=== PATIENT | female | born 1940 | race Caucasian/White ===

== ENCOUNTER 2020-04-05 12:31 | Outpatient (CLI) | payer MEDICARE, SELFPAY ==
--- NOTE | 2020-04-05 12:50 | ECHO_ITS ---
Patient Info Name: Sylvia Randall Age: 80 years : 1940 Gender: Female Ht: 64 in Wt: 190 lbs BSA: 2.01 m2 HR: 72 bpm BP: 134 / 89 mmHg Technical Quality: Good Exam Date: 04/05/2020 1:16 PM Exam Location: [facility] Patient Status: Outpatient Admit Date: 04/05/2020 Staff Ordering Physician: Ahsan Arana DO [employer]: [place] RDCS, RT Attending Provider: Ahsan Arana DO Referring Physician: Sumit TONG; Exam Type: CA echo doppler color flow Study Info Indications R60.0 - Localized edema Complete two-dimensional, color flow and Doppler transthoracic echocardiogram is performed. Strain analysis performed. Summary 1. Complete two-dimensional, color flow and Doppler transthoracic echocardiogram is performed. 2. Left ventricular chamber dimension is normal. 3. Left ventricular systolic function is normal, estimated at 60-65%. 4. There is mildly increased left ventricular wall thickness. 5. The left ventricular diastolic function is grade I diastolic dysfunction. 6. E/e' 11 is mildly elevated. 7. Global longitudinal strain is abnormal at -15.2%. 8. There is mild to moderate aortic valve regurgitation. 9. There is mild to moderate mitral valve regurgitation. 10. No pulmonary hypertension, estimated pulmonary arterial systolic pressure is 36 mmHg. 11. There is trace pulmonic regurgitation. Left Ventricle E/e' 11 is mildly elevated. Global longitudinal strain is abnormal at -15.2%. Left ventricular chamber dimension is normal. Left ventricular systolic function is normal, estimated at 60-65%. There is mildly increased left ventricular wall thickness. The left ventricular diastolic function is grade I diastolic dysfunction. Right Ventricle Right ventricular chamber dimension is normal. Right ventricular systolic function is normal. Left Atria Left atrial chamber dimension is normal. Right Atria Right atrial chamber dimension is normal. Aortic Valve The aortic valve is trileaflet. There is no aortic valve stenosis. There is mild to moderate aortic valve regurgitation. Pulmonic Valve There is trace pulmonic regurgitation. Mitral Valve There is no mitral valve stenosis. There is mild to moderate mitral valve regurgitation. Tricuspid Valve There is no tricuspid valve regurgitation. No pulmonary hypertension, estimated pulmonary arterial systolic pressure is 36 mmHg. Pericardium/Pleural There is no pericardial effusion. Inferior Vena Cava Normal inferior vena cava with >50% collapse upon inspiration consistent with normal right atrial pressure, 5 mmHg. Aorta The aortic root size at the sinus of Valsalva is normal. Left Ventricular Outflow Tract Name Value Normal LVOT 2D LVOT Diameter 1.9 cm LVOT Doppler LVOT Peak Gradient 3 mmHg LVOT Mean Gradient 2 mmHg LVOT VTI 20 cm LVOT VTI/AV VTI Ratio 0.7 LVOT Stroke Volume 56 ml LVOT CO 3.7 l/min
== END 2020-04-05 12:32 | disposition home or self-care (01) ==
LOC: ANHCARD 12:32
PROVIDERS: Family Provider Internal Medicine; PCP Internal Medicine; Visit Provider Internal Medicine
DX: J43.9 Emphysema, unspecified (principal); R60.0 Localized edema; R06.09 Other forms of dyspnea
CPT/HCPCS: 93306

== ENCOUNTER 2020-07-24 12:37 | Outpatient (CLI) | payer MEDICARE, SELFPAY ==
--- NOTE | 2020-08-05 16:33 | WPDSIXMINUTE ---
Six Minute Walk Procedure Procedure Performed Pulmonary Stress Test (6 min walk) Six Minute Walk This is a 6 minutes walk test. The test was performed and interpreted in accordance with the 2014 ERS/ATS task force guidelines. Findings: The patient's resting room air oxygen saturation measured by pulse oximetry was 88% and her heart rate was 91 bpm. Patient ambulated for 46 meters and oxygen saturation remained 89 to 91%. Heart rate at the end of the study was 104 bpm. The patient did not qualify for supplemental oxygen at rest or with ambulation. There are no prior studies for comparison.
== END 2020-07-24 12:38 | disposition home or self-care (01) ==
PROVIDERS: PCP Internal Medicine; Visit Provider Internal Medicine Critical Care Medicine
DX: J44.9 Chronic obstructive pulmonary disease, unspecified (principal)
CPT/HCPCS: 94618

== ENCOUNTER 2021-06-16 12:18 | Outpatient (CLI) | payer MEDICARE, SELFPAY ==
--- NOTE | ~2021-06-16 | DEXA_ITS ---
Bone Density Report Name: DARIANA KOWALSKI Age: 81 Sex: Female Ethnicity: White Date of : 1940 Indication: postmenopausal; screening for osteoporosis; height loss; cancer; hysterectomy; Referring Provider: KAMRYN BELL Study: Bone densitometry was performed. Exam Date: June 16, 2021 Accession number: [id number] Bone Density: Region BMD T-score Z-score Classification AP Spine(L1-L4) 1.250 1.8 4.5 Normal Femoral Neck (Left) 0.736 -1.0 1.3 Normal Total Hip (Left) 0.810 -1.1 0.9 Osteopenia Femoral Neck (Right) 0.775 -0.7 1.6 Normal Total Hip (Right) 0.882 -0.5 1.5 Normal Total Hip Mean 0.846 -0.8 1.2 Normal World Health Organization criteria for BMD impression classify patients as: Normal (T-score at or above -1.0), Osteopenia (T-score between -1.0 and -2.5), or Osteoporosis (T-score at or below -2.5). 10-year Fracture Risk(1): Major Osteoporotic Fracture 11% Hip Fracture 1.9% Reported Risk Factors: [place] (), Neck BMD=0.736, BMI=34.2 (1) FRAX(R) Version 3.08. Fracture probability calculated for an untreated patient. Fracture probability may be lower if the patient has received treatment. Previous Exams: Region Exam Age BMD T-score BMD Change BMD Change Date g/cm2 vs Baseline vs Previous AP Spine (L1-L4) 06/16/2021 81 1.250 1.8 0.088 (7.6%)* 0.088 (7.6%)* 02/14/2016 75 1.162 1.0 Total Hip(Left) 06/16/2021 81 0.810 -1.1 -0.046 (-5.4%) -0.046 (-5.4%) 02/14/2016 75 0.856 -0.7 Total Hip(Right) 06/16/2021 81 0.882 -0.5 0.009 (1.1%) 0.009 (1.1%) 02/14/2016 75 0.873 -0.6 *Denotes significance at 95% confidence level, LSC for AP Spine = 0.022 g/cm2, LSC for Total Hip = 0.027 g/cm2 Clinical Information Provided by Patient: Has used the following medications: Vitamin D, Calcium Has the following medical conditions: Cancer, Hysterectomy Patient maximum height was 65 Menopause Age: 52 No regular weight bearing exercise Drinks caffeinated beverages Onset of menses at age 14 Number of children 3 Impression: The patient has low bone mass, based on the Left Total Hip T-score. The patient has an estimated ten-year risk of hip fracture of 1.9% and an estimated ten-year risk of major fracture of 11%, based on the WHO FRAX algorithm. The BMD for the Total Hip(Left) decreased, changing by -5.4% since the last DXA exam. Discussion: BONE DENSITY IS LOW AT ONE OR MORE SKELETAL SITES.
== END 2021-06-16 12:19 | disposition home or self-care (01) ==
LOC: ANHIMG 12:20
PROVIDERS: PCP Internal Medicine; Visit Provider Nurse Practitioner
DX: Z78.0 Asymptomatic menopausal state (principal); M85.852 Other specified disorders of bone density and structure, left thigh
CPT/HCPCS: 77080

== ENCOUNTER 2023-09-30 14:06 | Outpatient (CLI) | payer MEDICARE, SELFPAY ==
[2023-09-30 17:59] LABS: Basophils Percent Auto 0.5 % (0.2-1.2); Eosinophils Absolute Auto 0.1 K/mm3 (0-0.3); Eosinophils Percent Auto 1.7 % (0-4.4); Hematocrit 52.5 % (37.0-47.0); Hemoglobin 16.7 g/dL (12.0-15.0); Immature Granulocyte Absolute 0.03 K/mm3 (0.00-0.031); Immature Granulocyte Percent A 0.4 % (0-0.5); Lymphocytes Absolute Auto 1.48 K/mm3 (0.9-3.2); Mean Corpuscular HGB Conc 31.8 g/dl (32-36); Mean Corpuscular Hemoglobin 33.2 pg (26-34); Mean Corpuscular Volume 104.4 fl (80-100); Mean Platelet Volume 10.9 fl (7.4-10.4); Monocytes Absolute Auto 0.8 K/mm3 (0.1-0.6); Monocytes Percent Auto 9.5 % (2.6-8.5); Neutrophils Absolute Auto 5.8 K/mm3 (1.3-6.7); Neutrophils Percent Auto 69.9 % (45.5-73.1); Platelet Count Result 212 k/mm3 (150-375); Red Blood Count 5.03 M/mm3 (4.2-5.4); Red Cell Distribution Width 13.1 % (11.5-14.5); White Blood Count 8.2 K/mm3 (4.5-10.0)
[2023-09-30 18:10] LABS: Alanine Aminotransferase 22 U/L (6-35); Albumin Level 4.1 g/dL (3.5-5.1); Alkaline Phosphatase 76 U/L (38-126); Anion Gap 8 mmol/L (4-12); Aspartate Amino Transferase 50 U/L (14-36); Bilirubin,Total 0.9 mg/dL (0.2-1.3); Blood Urea Nitrogen 23 mg/dL (7-17); Calcium 9.4 mg/dL (8.4-10.2); Carbon Dioxide 33 mmol/L (22-30); Chloride 98 mmol/L (98-107); Estimated Glomerular Filt Rate > 60; Glucose 91 mg/dL (65-110); Potassium 4.2 mmol/L (3.4-5.0); Sodium 139 mmol/L (137-145)
== END 2023-09-30 14:07 | disposition home or self-care (01) ==
LOC: ANHGOSHLAB 14:08
PROVIDERS: PCP Internal Medicine; Visit Provider Nurse Practitioner
DX: R53.83 Other fatigue (principal); E03.9 Hypothyroidism, unspecified
CPT/HCPCS: 36415; 80053; 84443; 85025

== ENCOUNTER 2023-09-30 14:49 | Inpatient (IN) | payer MEDICARE, SELFPAY ==
[2023-09-30] VITALS (16 sets, daily range): BP systolic 101–159; BP diastolic 46–86; PULSE 74–97; RESP 16–32; TEMP 36.4–36.6; O2SAT 91–99
--- NOTE | ~2023-09-30 | XR_ITS ---
XR chest 1V portable Ordering provider: Joel Israel MD History: 83 years Female with . SOB . Comparison: February 14, 2016 FINDINGS: MEDIASTINUM: The cardiac silhouette is not enlarged. Congestive kev. LUNGS: No infiltrates, effusions or pneumothorax. Opacity seen adjacent to the aortic arch which may be a nodule. CT evaluation advised. Prominent bronchovascular markings in the lower lobes. OTHER: No free air under the diaphragm. Levoscoliosis. IMPRESSION: Prominent markings in the lower lobes more on the right side which may indicate early pneumonia. Foll ow-up advised.. Possible nodule in the left para-aortic area. CT evaluation advised. Reviewed, dictated and finalized at location A. IMPRESSION: Prominent markings in the lower lobes more on the right side which may indicate early pneumonia. Follow-up advised.. Possible nodule in the left para-aortic area. CT evaluation advised.
--- NOTE | ~2023-09-30 | CT_ITS ---
CTA chest PE protocol Ordering provider: Joel Israel MD History: 83 years Female with . Hypoxia, hx of cancer . Comparison: None. Technique: CT angiogram chest was performed following timed intravenous injection of contrast. Thin s lice axial images and reformatted coronal images were obtained. Three dimensional reformatted images of the chest were also obtained using a [employer] workstation. . Automated exposure control and iterati ve reconstruction technique were employed. The dose-length product was 382.12 mGy-cm. 100 mL Omnipaqu e 350. Findings: PULMONARY ARTERIES: No pulmonary embolus. VISUALIZED THORACIC INLET: Normal. MEDIASTINUM: Aorta/coronary arteries: Mild atheromatous disease. Heart/other: The heart is slightly enlarged.. Prominent main pulmonary vessels suggestive of pulmona ry hypertension. The main pulmonary artery measures 3.3 cm. Lymph nodes: No mediastinal or hilar adenopathy. LUNGS: Soft tissue density seen in the left upper lobe which may be atelectatic but nodules cannot be exclud ed. This area measures 1.5 x 2.7x 1.5 cm. Three-month CT Follow-up advised. Vessel is seen adjacent t o this area. No infiltrates or effusions. No pneumothorax. Underlying emphysematous changes. VISUALIZED UPPER ABDOMEN: Small sliding hiatus hernia. The left kidney is not demonstrated. Otherwise , the visualized upper abdomen is normal. MUSCULOSKELETAL: Soft tissues: The superficial soft tissues are normal. Bones: Age appropriate degenerative changes of the spine. IMPRESSION: 1. Density in the left upper lobe which may be atelectasis versus nodule. Three-month CT versus PET scan follow-up advised. 2. No pulmonary embolism. 3. No acute cardiopulmonary pathology. 4. Slightly prominent main pulmonary artery which may indicate pulmonary hypertension. Reviewed, dictated and finalized at location A. IMPRESSION: 1. Density in the left upper lobe which may be atelectasis versus nodule. Thre e-month CT versus PET scan follow-up advised. 2. No pulmonary embolism. 3. No acute cardiopulmonary pathology. 4. Slightly prominent main pulmonary artery which may indicate pulmonary hyper tension.
--- NOTE | 2023-09-30 14:51 | ECG_ITS ---
Test Date: 2023-09-30 14:57:24 Measurements Intervals [place] Rate: 85 P: 78 IA: 163 QRS: -83 QRSD: 142 T: 48 QT: 395 QTc: 471 Interpretive Statements SINUS RHYTHM POSSIBLE LEFT ATRIAL ENLARGEMENT [-0.1mV P-WAVE IN V1/V2] RIGHT BUNDLE BRANCH BLOCK [120+ ms QRS DURATION, UPRIGHT V1, 40+ ms S IN I/aVL/V4/V5/V6] LEFT ANTERIOR FASCICULAR BLOCK [QRS AXIS <= -45, QR IN I, RS IN II] POSSIBLE LEFT VENTRICULAR HYPERTROPHY [VOLTAGE CRITERIA PLUS LAE OR QRS WIDENING] ABNORMAL ECG No previous ECG available for comparison Electronically Signed On 10-01-2023 14:37:38 CDT by Severo Pantoja M.D.
[2023-09-30 15:11] LABS: Basophils Percent Auto 0.4 % (0.2-1.2); Eosinophils Absolute Auto 0.1 K/mm3 (0-0.3); Eosinophils Percent Auto 1.7 % (0-4.4); Hematocrit 51.1 % (37.0-47.0); Hemoglobin 16.3 g/dL (12.0-15.0); Immature Granulocyte Absolute 0.03 K/mm3 (0.00-0.031); Immature Granulocyte Percent A 0.4 % (0-0.5); Lymphocytes Absolute Auto 1.25 K/mm3 (0.9-3.2); Lymphocytes Percent Auto 16.2 % (18.3-44.2); Mean Corpuscular HGB Conc 31.9 g/dl (32-36); Mean Corpuscular Hemoglobin 32.7 pg (26-34); Mean Corpuscular Volume 102.6 fl (80-100); Mean Platelet Volume 10.1 fl (7.4-10.4); Monocytes Absolute Auto 0.7 K/mm3 (0.1-0.6); Monocytes Percent Auto 8.7 % (2.6-8.5); Neutrophils Absolute Auto 5.6 K/mm3 (1.3-6.7); Neutrophils Percent Auto 72.6 % (45.5-73.1); Platelet Count Result 208 k/mm3 (150-375); Red Blood Count 4.98 M/mm3 (4.2-5.4); Red Cell Distribution Width 12.7 % (11.5-14.5); White Blood Count 7.7 K/mm3 (4.5-10.0)
[2023-09-30 15:23] LABS: Alanine Aminotransferase 21 U/L (6-35); Albumin Level 3.9 g/dL (3.5-5.1); Alkaline Phosphatase 70 U/L (38-126); Anion Gap 9 mmol/L (4-12); Aspartate Amino Transferase 28 U/L (14-36); Bilirubin,Total 0.9 mg/dL (0.2-1.3); Blood Urea Nitrogen 24 mg/dL (7-17); Calcium 9.1 mg/dL (8.4-10.2); Carbon Dioxide 29 mmol/L (22-30); Chloride 99 mmol/L (98-107); Estimated CRCL calculation 56 ml/min; Estimated Glomerular Filt Rate > 60; Glucose 95 mg/dL (65-110); Potassium 4.4 mmol/L (3.4-5.0); Sodium 137 mmol/L (137-145)
--- NOTE | 2023-09-30 15:55 | PC.NURSE ---
called lab at this time to add on BNP, trop 1, and PT/PTT/INR
[2023-09-30] MEDS: IPRATROPIUM 0.5 MG/ALBUTEROL SULFATE 2.5 MG AMPUL.NEB 3 ML 12 ML INHALATION (15:59)
[2023-09-30] MEDS: dexAMETHasone SOD PHOS INJ 10 MG/ML 1 ML VIAL IV PUSH (16:00)
[2023-09-30] MEDS: MAGNESIUM SULF 2 GM/WATER 50ML 2 GM/50 ML BAG IVPB (16:03)
[2023-09-30 16:07] LABS: Partial Thromboplastin Time 24.6 Seconds (22.3-36.8); Prothrombin Time 13.4 Seconds (11.1-14.7)
[2023-09-30 16:15] LABS: NT Pro B Type Natriuretic Pept 414 pg/mL (19.9-100); Troponin I 0.015 ng/mL (0.000-0.034)
--- NOTE | 2023-09-30 16:19 | PC.NURSE ---
pt is aware she needs to give a urine sample. pt will use call light when she needs to go
--- NOTE | 2023-09-30 18:59 | ECG_ITS ---
Test Date: 2023-09-30 19:13:34 Measurements Intervals [place] Rate: 87 P: 69 MA: 156 QRS: -74 QRSD: 142 T: 22 QT: 427 QTc: 515 Interpretive Statements SINUS RHYTHM WITH FREQUENT VENTRICULAR PREMATURE COMPLEXES POSSIBLE LEFT ATRIAL ENLARGEMENT [-0.1mV P WAVE IN V1/V2] RIGHT BUNDLE BRANCH BLOCK [120+ ms QRS DURATION, UPRIGHT V1, 40+ ms S IN I/aVL/V4/V5/V6] LEFT ANTERIOR FASCICULAR BLOCK [QRS AXIS <= -45, QR IN I, RS IN II] POSSIBLE LEFT VENTRICULAR HYPERTROPHY [VOLTAGE CRITERIA PLUS LAE OR QRS WIDENING] ABNORMAL ECG Compared to ECG 09/30/2023 14:57:24 NO DIFFERENT Electronically Signed On 10-01-2023 14:53:49 CDT by Severo Pantoja M.D.
--- NOTE | 2023-09-30 19:07 | ED.GENADULT ---
HPI - General Adult General Chief complaint: Shortness of Breath/Dyspnea Stated complaint: SOB Time Seen by Provider: 09/30/23 15:16 History of Present Illness HPI narrative: This is an 83-year-old female with history of COPD and lung cancer presenting from her primary care physician office for hypoxia. Patient has not been feeling very well for the last 2-3 weeks. She says she feels jittery and has been having trouble sleeping. He also notes shortness of breath on exertion. No fevers chills or productive cough. She has been taking her COPD medications as directed. When she was seen her primary care physician today she had a failed ambulatory pulse ox and desaturated into the high 70s while walking. 94% at rest. Dr. Ham was consulted from the PCP office and recommended she go to the ER. Related Data Home Medications Medication Instructions Recorded Confirmed cholecalciferol (vitamin D3) 10 400 unit PO DAILY 01/25/19 09/30/23 mcg (400 unit) capsule ascorbate calcium (vitamin C) 500 500 mg PO DAILY 12/29/19 09/30/23 mg tablet diphenhydramine 25 1 tablet PO QHS PRN 02/17/22 09/30/23 mg-acetaminophen 500 mg tablet (Tylenol PM Extra Strength) loperamide 2 mg capsule (Imodium 2 mg PO Q6H PRN 03/02/23 09/30/23 A-D) Allergies Allergy/AdvReac Type Severity Reaction Status Date / Time No Known Allergies Allergy Unknown Verified 09/30/23 14:49 [facility] Past Medical History Medical History CKD (chronic kidney disease) COPD (chronic obstructive pulmonary disease) Hx of stroke without residual deficits 2001 Hyperlipidemia Hypertension Hypothyroidism Lung cancer Osteopenia , status unknown Tubular Pulmonary emphysema TIA (transient ischemic attack) Vocal cord disease Nodule removed from vocal cord Surgical History Surgical History H/O eye surgery Eye lid 2006 H/O: hysterectomy 2000 Hiatal hernia Family History Family History Mother Patient's mother is Father Patient's father is Family history of lymphoma Sibling Carcinoma of colon Son Lung cancer Brain cancer Social History Social History Smoking status: Former smoker Smoking end date: 02/15/14 Alcohol intake: current Alcohol use details: Pt drinks rarely. Substance use: never Lack of Transportation: No Lack of Food: Never True Current Housing: I Have Housing Concerned About Future Housing: No Difficulty Paying Gas/Electric Bills: No Difficulty Paying for Meds: No Currently Unemployed: No Education: High School Diploma/GED Difficulty w/ Childcare or Family Care: No Exam Narrative: APPEARANCE: No apparent distress. Head: atraumatic. EYES: EOMI, NOSE: Atraumatic NECK: Trachea midline RESPIRATORY: Tachypneic, 89% on room air, no wheezing or rhonchi. Patient failed an ambulatory pulse ox at and desaturated into the 70s CARDIOVASCULAR: RRR, ABDOMINAL: Non-distended MUSCULOSKELETAl: No obvious deformities NEURO: Alert. Moving 4/4 extremities SKIN:: Warm, dry. Normal color PSYCHIATRIC: Normal affect Course Vital Signs Vital signs: Vital Signs Temperature 97.6 F 09/30/23 14:52 Pulse Rate 84 09/30/23 14:52 Respiratory Rate 25 H 09/30/23 14:52 Blood Pressure 159/67 H 09/30/23 14:52 Pulse Oximetry 94 09/30/23 14:52 Oxygen Delivery Room Air 09/30/23 14:52 Temperature 97.8 F 09/30/23 17:22 Pulse Rate 78 09/30/23 18:32 Respiratory Rate 33 H 09/30/23 18:32 Blood Pressure 155/63 H 09/30/23 18:32 Pulse Oximetry 94 09/30/23 18:32 Oxygen Delivery Nasal Cannula 09/30/23 18:17 Oxygen Flow Rate 3 09/30/23 18:17 Medical Decision Making MDM Narrative Medical decision making narrative:
[2023-09-30 19:42] LABS: Troponin I 0.013 ng/mL (0.000-0.034)
--- NOTE | 2023-09-30 21:31 | ADMGEN ---
This patient, Sylvia Randall, was admitted to Medical Room 349-01. Patient/family oriented to hospital policies and general routines including ID bracelet, bed and alarms, visiting hours, pain management, procedures, bathroom and other care routines, personal items, smoking policy, room service/diet, and visiting hours. Information on how to activate the Rapid Response Team has been discussed. Patient/Family are encouraged to report perceived risks to care and to ask questions if they do not understand what they are told or what they should do.
[2023-10-01] VITALS (11 sets, daily range): BP systolic 103–178; BP diastolic 59–72; PULSE 63–87; RESP 16–20; TEMP 36.1–36.7; O2SAT 93–97; BMI 32.8
--- NOTE | 2023-10-01 16:04 | PM.CNPUL ---
Assessment and Plan Assessment and plan (1) Acute hypoxic respiratory failure: Code(s): J96.01 - Acute respiratory failure with hypoxia Status: Acute Assessment and Plan: Acute worsening over the last 2 weeks or more, with saturation dropping to 79% with minimal exertion. She is on 3 L/min now, saturation 94%. Will wean as tolerated, check her need for O2 with Home O2 study before discharge. She may require O2 in the home after discharge. (2) COPD with exacerbation: Code(s): J44.1 - Chronic obstructive pulmonary disease with (acute) exacerbation Status: Acute Assessment and Plan: COPD with exacerbation, increased shortness of breath and drop in saturation at her primary care office yesterday. At home, she is using Anoro - dual bronchodilator - umeclidinium and vilanterol; needs ICS in a triple inhaler at discharge. She has albuterol as her rescue medication, infrequent use. She is on albuterol and ipratropium as an inpatient. plan: adjust IV steroids, 40 mg Q 8 hours, continue albuterol and ipratropium nebulized She will go home on a triple inhaler. Home O2 study before discharge. (3) Tobacco abuse: Code(s): Z72.0 - Tobacco use Status: Acute Assessment and Plan: Started smoking age 17, smoked off and on for years, stopped for 10 years, started again 2022 after her son by suicide incarcerated. She broke down and started smoking again, understandably. We talked about tobacco cessation, will help her stay off after discharge. She only smokes outdoors. Daughter smokes. Strongly encouraged to stop smoking. Will discuss more and give information before discharge. (4) Lung cancer: Qualifiers: Laterality: unspecified laterality Lung location: unspecified part of lung Qualified Code(s): C34.90 - Malignant neoplasm of unspecified part of unspecified bronchus or lung Code(s): C34.90 - Malignant neoplasm of unspecified part of unspecified bronchus or lung Status: Acute Assessment and Plan: This might be a stable diagnosis; initially had 1 nodule non-small cell lung caner completed treated with 5 radiation treatments 07/18/2018, Was stage I, later developed a second adjacent nodule, 11/26/2022 Stage II, followed by Radiation Oncology at [facility]. Her last visit was in June 2023. (5) Polycythemia: Code(s): D75.1 - Secondary polycythemia Status: Acute Assessment and Plan: Elevated H/H 16.7 gram/dL and hematocrit 52.5% with normal rbc mass. She likely has secondary polycythemia due to hypoxia and suspected ELIDIA; she snores, wakes at least 3 times at night to urinate. Sleeps 14 + hours, never wakes up feeling refreshed, waking with headaches. Will check ApneaLink tonight on 2 L/min and an arterial blood gas in the morning after sleeping. If she has elevated pCO2, she may be a candidate for a non-invasive device with sleeping. If she does not have elevated pCO2 > than 55 mmHg, we may find another alternative, including out patient sleep testing. She is on O2 at 3 L/min, may be able to tolerate lower flow as she improves. Plan plan: O2, keep sat 90-94% with supplemental O2. COPD exacerbation: IV steroids, bronchodilators, triple inhaler before discharge Out-patient PFT, 6MW and pulmonary rehab tobacco cessation; discuss while here and make a plan for when david goes home, back to her natural environment. She may have psoriasis on elbows; this is an inflammatory condition that is associated with other comorbidities such as HTN, DM, malignancy, lung disease, psychiatric disease, obesity / metabolic syndrome. Check Rheumatoid factor
--- NOTE | 2023-10-01 16:07 | PM.IMHP ---
H&P: HPI History of Present Illness Date/Time: 10/01/23 16:07 Chief Complaint: Shortness of breath, fatigue Narrative: Patient presented to the ER with reports of worsening shortness of breath and fatigue within the last 2 weeks. Patient initially presented to her PCP and was observed sitting tripod with O2 sats in the 70's during activity. The plant operations coordinator was contacted and she recommended patient be transferred to the ER. Patient reports intermittent episodes of cough with small clear sputum. Patient denies any fevers or sick contacts, denies recent travels. Review of Systems Review of Systems: All systems reviewed & are unremarkable except as noted in HPI and below PMFSH Past Medical History Medical History CKD (chronic kidney disease) COPD (chronic obstructive pulmonary disease) Hx of stroke without residual deficits 2001 Hyperlipidemia Hypertension Hypothyroidism Lung cancer Osteopenia , status unknown Tubular Pulmonary emphysema TIA (transient ischemic attack) Vocal cord disease Nodule removed from vocal cord Surgical History Surgical History H/O eye surgery Eye lid 2006 H/O: hysterectomy 2000 Hiatal hernia Family History Family History Mother Patient's mother is Father Patient's father is Family history of lymphoma Sibling Carcinoma of colon Son Lung cancer Brain cancer Social History Social History Smoking status: Current every day smoker Smoking end date: 02/15/14 Alcohol intake: current Drinks per week: 1 Alcohol use details: Pt drinks rarely. Substance use: never Do You Feel Safe in your Home?: Yes Lack of Transportation: No Lack of Food: Never True Current Housing: I Have Housing Concerned About Future Housing: No Difficulty Paying Gas/Electric Bills: No Difficulty Paying for Meds: No Currently Unemployed: No Education: High School Diploma/GED Difficulty w/ Childcare or Family Care: No Spiritual care concerns: No Meds Home Medications and Allergies Home Medications Medication Instructions Recorded Confirmed Type cholecalciferol (vitamin D3) 10 400 unit PO DAILY 01/25/19 09/30/23 History mcg (400 unit) capsule ascorbate calcium (vitamin C) 500 500 mg PO DAILY 12/29/19 09/30/23 History mg tablet diphenhydramine 25 1 tablet PO QHS PRN Sleep 02/17/22 09/30/23 History mg-acetaminophen 500 mg tablet (Tylenol PM Extra Strength) loperamide 2 mg capsule (Imodium 2 mg PO HS 03/02/23 09/30/23 History A-D) clopidogrel 75 mg tablet 75 mg PO DAILY #90 tabs 03/29/23 09/30/23 Rx simvastatin 40 mg tablet 40 mg PO DAILY #90 tabs 08/26/23 09/30/23 Rx umeclidinium 62.5 mcg-vilanterol 1 inh inhalation DAILY #60 ea 09/21/23 09/30/23 Rx 25 mcg/actuation powdr for inhalation (Anoro Ellipta) albuterol sulfate 90 mcg/actuation 2 puff inhalation Q4H PRN 09/30/23 09/30/23 History aerosol inhaler Shortness Of Breath Or Wheezing fluoxetine 20 mg capsule 20 mg PO DAILY 09/30/23 09/30/23 History levothyroxine 88 mcg tablet 88 mcg PO DAILY 09/30/23 09/30/23 History Allergies Allergy/AdvReac Type Severity Reaction Status Date / Time No Known Allergies Allergy Unknown Verified 09/30/23 14:49 Vital Signs Vital Signs - 24 hr 09/30/23 16:27 09/30/23 17:22 09/30/23 18:07 Temperature 97.8 F Pulse Rate 82 97 87 Respiratory Rate 23 H 20 16 Blood Pressure 114/61 122/57 L 112/46 L Pulse Oximetry 99 91 92 Oxygen Delivery Oxygen Flow Rate 09/30/23 17:00 09/30/23 18:17 09/30/23 18:17 Temperature Pulse Rate 86 81 Respiratory Rate 20 23 H Blood Pressure 112/46 L Pulse Oximetry 94 94 Oxygen Delivery Nasal Cannula Oxygen Flow Rate 3 09/30/23 16:4
[2023-10-01] MEDS: FUROSEMIDE INJ 40 MG/4 ML VIAL IV PUSH (17:50)
[2023-10-01] MEDS: methylPREDNISolone SOD SUCC 40 MG VIAL IV PUSH (21:05)
[2023-10-01] MEDS: IPRATROPIUM 0.5 MG/ALBUTEROL SULFATE 2.5 MG AMPUL.NEB 3 ML INHALATION (21:31)
[2023-10-02] VITALS (17 sets, daily range): BP systolic 92–143; BP diastolic 58–98; PULSE 64–104; RESP 18–20; TEMP 36.3–37.2; O2SAT 93–96
[2023-10-02 05:27] LABS: Rheumatoid Factor < 12.0 IU/ML (<12)
[2023-10-02] MEDS: methylPREDNISolone SOD SUCC 40 MG VIAL IV PUSH ×3 (06:06→21:09)
[2023-10-02] MEDS: LEVOTHYROXINE SODIUM 88 MCG TABLET PO (06:06)
[2023-10-02 06:39] LABS: Alveolar/Arterial O2 Gradient 47.3 mmHg; Base Excess ABG 6.3 mEq/l (+/-2.0); Carboxyhemoglobin 0.9 % THb (0-2.0); Fractional Inspired Oxygen 28 %; HCO3 ABG 33.1 mEq/l (22.0-26.0); Methemoglobin ABG 0.3 %THb (0-1.5); Oxygen Content ABG 21.3 %vol (16.0-22.0); Oxygen Saturation ABG 96.4 % (95.0-100.0); Oxyhemoglobin 95.1 % THb (90.0-100.0); PCO2 ABG 55.3 mmHg (35.0-45.0); PO2 ABG 87.1 mmHg (80.0-100.0); PO2 FiO2 Ratio Arterial Blood 3.11 %; Reduced Hemoglobin 3.7 %THb (0-5.0); Total Hemoglobin 15.9 g/dL (12.0-18.0); pH ABG 7.395 (7.350-7.450)
[2023-10-02 06:41] LABS: Device NASAL CANNULA; Modified Allen's Test Pass; Site Drawn RIGHT RADIAL
--- NOTE | 2023-10-02 07:01 | ECHO_ITS ---
Patient Info Name: Sylvia Randall Age: 83 years : 1940 Gender: Female Ht: 63 in Wt: 182 lbs BSA: 1.95 m2 HR: 82 bpm BP: 126 / 62 mmHg Heart Rhythm: Sinus Rhythm Technical Quality: Good Exam Date: 10/02/2023 10:14 AM Exam Location: Echo Lab Patient Status: Inpatient Admit Date: 10/01/2023 Staff Ordering Physician: Salina Ham MD Attending Provider: Nuvia Colunga DO Referring Physician: Fatoumata BEAR; Exam Type: CA echo doppler color flow Study Info Complete two-dimensional, color flow and Doppler transthoracic echocardiogram is performed. Summary 1. Complete two-dimensional, color flow and Doppler transthoracic echocardiogram is performed. 2. Left ventricular chamber dimension is normal. 3. Left ventricular systolic function is normal, estimated at 60-65%. 4. There is mild concentric increased left ventricular wall thickness. 5. The left ventricular diastolic function is grade I diastolic dysfunction. 6. E/e' 19 is elevated. 7. There is mild aortic valve sclerosis. 8. There is trace aortic valve regurgitation. 9. No pulmonary hypertension, estimated pulmonary arterial systolic pressure is 25 mmHg. 10. There is trace pulmonic regurgitation. Left Ventricle E/e' 19 is elevated. Left ventricular chamber dimension is normal. Left ventricular systolic function is normal, estimated at 60-65%. There is mild concentric increased left ventricular wall thickness. The left ventricular diastolic function is grade I diastolic dysfunction. Right Ventricle Right ventricular systolic function is normal and with normal TAPSE 3.1 cm. Right ventricular chamber dimension is normal. Left Atria Left atrial chamber dimension is normal. Right Atria Right atrial chamber dimension is normal. Aortic Valve The aortic valve is trileaflet. There is mild aortic valve sclerosis. There is no aortic valve stenosis. There is trace aortic valve regurgitation. Pulmonic Valve There is trace pulmonic regurgitation. Mitral Valve There is no mitral valve stenosis. There is no mitral valve regurgitation. Tricuspid Valve There is no tricuspid valve regurgitation. No pulmonary hypertension, estimated pulmonary arterial systolic pressure is 25 mmHg. Pericardium/Pleural There is no pericardial effusion. Inferior Vena Cava Normal inferior vena cava with >50% collapse upon inspiration consistent with normal right atrial pressure, 5 mmHg. Aorta The aortic root size at the sinus of Valsalva is normal. Left Ventricular Outflow Tract Name Value Normal LVOT 2D LVOT Diameter 2.1 cm LVOT Doppler LVOT Peak Gradient 3 mmHg LVOT Mean Gradient 2 mmHg LVOT VTI 22 cm LVOT VTI/AV VTI Ratio 0.8 LVOT Stroke Volume 78 ml LVOT CO 5.2 l/min LVOT CI 2.7 l/min/m2 Pulmonic Valve Name Value Normal PV Doppler
[2023-10-02] MEDS: UMECLIDINIUM/VILANTEROL 62.5-25 MCG ELLIPTA 1 PUFF INHALATION (07:40)
[2023-10-02] MEDS: IPRATROPIUM 0.5 MG/ALBUTEROL SULFATE 2.5 MG AMPUL.NEB 3 ML INHALATION ×3 (07:40→22:15)
[2023-10-02] MEDS: SIMVASTATIN 20 MG TABLET 40 MG PO (08:46)
[2023-10-02] MEDS: FLUoxetine HCL 20 MG CAPSULE PO (08:46)
[2023-10-02] MEDS: CLOPIDOGREL BISULFATE 75 MG TABLET PO (08:46)
[2023-10-02] MEDS: ASCORBIC ACID 500 MG TABLET PO (08:46)
[2023-10-02] MEDS: CHOLECALCIFEROL 400 UNITS TABLET (VIT D) PO (08:46)
[2023-10-02] MEDS: ENOXAPARIN 40 MG/0.4 ML SYRINGE SUB-Q (08:46)
--- NOTE | 2023-10-02 13:09 | PM.PNPUL ---
Progress Note: A&P Assessment and Plan (1) Acute hypoxic respiratory failure: Code(s): J96.01 - Acute respiratory failure with hypoxia Status: Acute Assessment and Plan: Acute worsening over the last 2 weeks or more, with saturation dropping to 79% with minimal exertion. She is on 2 L/min now, saturation 93, admitted and required 3 L/min, better. Will wean as tolerated, check her need for O2 with Home O2 study before discharge. She may require O2 in the home after discharge (2) COPD with exacerbation: Code(s): J44.1 - Chronic obstructive pulmonary disease with (acute) exacerbation Status: Acute Assessment and Plan: COPD with exacerbation, increased shortness of breath and drop in saturation at her primary care office yesterday. At home, she is using Anoro - dual bronchodilator - umeclidinium and vilanterol; needs ICS in a triple inhaler at discharge. She has albuterol as her rescue medication, infrequent use. She is on albuterol and ipratropium as an inpatient. plan: adjust IV steroids, 40 mg Q 8 hours, continue albuterol and ipratropium nebulized She will go home on a triple inhaler. Home O2 study before discharge. (3) Tobacco abuse: Code(s): Z72.0 - Tobacco use Status: Acute Assessment and Plan: Started smoking age 17, smoked off and on for years, stopped for 10 years, started again 2022 after her son by suicide incarcerated. She broke down and started smoking again, understandably. We talked about tobacco cessation, will help her stay off after discharge. She only smokes outdoors. Daughter smokes. Strongly encouraged to stop smoking. Will discuss more and give information before discharge. (4) Lung cancer: Qualifiers: Laterality: unspecified laterality Lung location: unspecified part of lung Qualified Code(s): C34.90 - Malignant neoplasm of unspecified part of unspecified bronchus or lung Code(s): C34.90 - Malignant neoplasm of unspecified part of unspecified bronchus or lung Status: Acute Assessment and Plan: Stable diagnosis; initially had 1 nodule non-small cell lung caner completed treated with 5 radiation treatments 07/18/2018, Was stage I, later developed a second adjacent nodule, 11/26/2022 Stage II, followed by Radiation Oncology at [facility]. Her last visit was in June 2023. (5) Polycythemia: Code(s): D75.1 - Secondary polycythemia Status: Acute Assessment and Plan: Elevated H/H 16.7 gram/dL and hematocrit 52.5% with normal rbc mass. She likely has secondary polycythemia due to hypoxia and suspected ELIDIA; she snores, wakes at least 3 times at night to urinate. Sleeps 14 + hours, never wakes up feeling refreshed, waking with headaches. Will check ApneaLink tonight on 2 L/min and an arterial blood gas in the morning after sleeping. If she has elevated pCO2, she may be a candidate for a non-invasive device with sleeping. If she does not have elevated pCO2 > than 55 mmHg, we may find another alternative, including out patient sleep testing. She is on lower O2, 2 L/min, may be able to tolerate lower flow as she improves. Plan Continue O2, keep sat 90-94% with supplemental O2. Now down to 2 L/min, sat 93%. COPD exacerbation: IV steroids, bronchodilators, triple inhaler before discharge Out-patient PFT, 6MW and pulmonary rehab tobacco cessation; discuss while here and make a plan for when david goes home, back to her natural environment. ABG this am on 2 L after sleeping shows: pH 7.395, pCO2 55.3; pO2 87.1 on 2 L/min, HCO3 33.1, Sat 96.4%, on 2 L/min this is may be a candidate for AVAPS; I talked with her about using this with s
[2023-10-02] MEDS: SODIUM CHLORIDE 0.9% IV 500 ML 250 ML IVPB (16:09)
--- NOTE | 2023-10-02 16:09 | PM.IMPN ---
Progress Note: A&P Assessment and Plan (1) Acute hypoxic respiratory failure: Code(s): J96.01 - Acute respiratory failure with hypoxia Status: Acute Assessment and Plan: - Likely related to COPD exacerbation vs CHF exacerbation vs other. - Troponin negative. - BNP 414. - Given a dose of IV lasix on admission. - Symptoms improving. - CXR suggestive of early PNA. - CT chest PE with negative for PE and No acute cardiopulmonary pathology noted. - ECHO pending results. - Steroids adjusted per machinery mechanic. - Continue supplemental O2 to maintain sats > 90%. - Continue scheduled bronchodilators. - [employer] following and we appreciate assistance. (2) COPD with exacerbation: Code(s): J44.1 - Chronic obstructive pulmonary disease with (acute) exacerbation Status: Acute Assessment and Plan: - Continue IV steroids per machinery mechanic. - Continue supplemental O2 to maintain sats > 90%. - Continue scheduled bronchodilators. - [employer] following. (3) Fatigue: Code(s): R53.83 - Other fatigue Status: Acute Assessment and Plan: - Likely related to #1 and #2. - CT Chest PE with no cardiopulmonary pathology. - Troponin negative X2. - TSH wnl. - H/H wnl. - No significant metabolic derangements noted. - Monitor symptoms progression. - Consider further w/u if no improvement in symptoms. (4) Hyperlipidemia: Qualifiers: Hyperlipidemia type: mixed hyperlipidemia Qualified Code(s): E78.2 - Mixed hyperlipidemia Code(s): E78.5 - Hyperlipidemia, unspecified Status: Acute Assessment and Plan: Continue statin. (5) Hypothyroidism: Qualifiers: Hypothyroidism type: acquired Qualified Code(s): E03.9 - Hypothyroidism, unspecified Code(s): E03.9 - Hypothyroidism, unspecified Status: Acute Assessment and Plan: - TSH wnl. - Continue home dose synthroid. (6) Elevated blood pressure reading: Code(s): R03.0 - Elevated blood-pressure reading, without diagnosis of hypertension Status: Acute Assessment and Plan: - BP well controlled. - Continue to monitor. 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 - Continue Plavix and statin. Plan Code Status: FULL-CODE. DVT Subjective Date/time seen: 10/02/23 11:29 Interval history: Patient presented to the hospital with worsening SOB and fatigue within the last couple of weeks. She initially presented to her PCP and was noted with O2 sats dropping to high 70's and low 80's with minimal activity, so she was sent to the ER for evaluation. Patient is not on supplemental O2 at home. Patient is currently being treated for acute hypoxic respiratory failure and COPD exacerbation. [employer] is assisting with patient management. Patient currently on bedrest during this exam, reporting much improvement to her breathing compared to yesterday. Denies any distressful symptoms. Review of Systems Review of Systems: All systems reviewed & are unremarkable except as noted in HPI and below Exam Narrative: General: Fair appearing, no acute distress. HEENT: Atraumatic, PERRL, non-icteric, MMM, Neck: Supple. Respiratory: Moderate expiratory wheezes. Cardiovascular: RRR, no murmurs. GI: Soft, non-tender, +ve bowel sounds X4 quadrants. Skin: Warm, dry and pink. No lesions noted. Extremities: No edema noted. Neurological: Well oriented. CN II-XII grossly intact. Psych: Pleasant and co-operative. Objective Data Vital Signs Vital Signs: Vital Signs - 24 hr 10/01/23 20:00 10/01/23 21:32 10/01/23 21:32 Temperature 97.6 F Pulse Rate 81 71 71 Respiratory Rate 20 18 Blood Pressure 159/60 H Pulse Oximetry 94 93 Oxygen Delivery Nasal Cannula Oxygen Flow Rate 2 10/01/23 21:39 10/01/23 20:00
[2023-10-02] MEDS: LOPERAMIDE HCL 2 MG CAPSULE PO (21:09)
--- NOTE | 2023-10-02 22:43 | PC.NURSE ---
Respiratory set patient up on AVAP HS. patient called out to nurse within the hour stating she wanted mask off. Respiratory made aware.
--- NOTE | 2023-10-02 23:02 | PCRCNOTE ---
placed pt on bipap, wore for approximately 45 minutes then requested be taken off, stating that she needed a smaller mask. RT attempted a smaller mask but she states it was then too small. Pt states she will try again tomorrow.
[2023-10-03] VITALS (19 sets, daily range): BP systolic 99–149; BP diastolic 64–82; PULSE 71–93; RESP 16–22; TEMP 36.6–37.1; O2SAT 93–96
[2023-10-03] MEDS: IPRATROPIUM 0.5 MG/ALBUTEROL SULFATE 2.5 MG AMPUL.NEB 3 ML INHALATION ×4 (02:55→21:18)
[2023-10-03] MEDS: methylPREDNISolone SOD SUCC 40 MG VIAL IV PUSH ×3 (06:08→16:49)
[2023-10-03] MEDS: LEVOTHYROXINE SODIUM 88 MCG TABLET PO (06:08)
[2023-10-03] MEDS: UMECLIDINIUM/VILANTEROL 62.5-25 MCG ELLIPTA 1 PUFF INHALATION (07:20)
[2023-10-03] MEDS: ENOXAPARIN 40 MG/0.4 ML SYRINGE SUB-Q (09:18)
[2023-10-03] MEDS: CHOLECALCIFEROL 400 UNITS TABLET (VIT D) PO (09:19)
[2023-10-03] MEDS: SIMVASTATIN 20 MG TABLET 40 MG PO (09:19)
[2023-10-03] MEDS: FLUoxetine HCL 20 MG CAPSULE PO (09:19)
[2023-10-03] MEDS: CLOPIDOGREL BISULFATE 75 MG TABLET PO (09:19)
[2023-10-03] MEDS: ASCORBIC ACID 500 MG TABLET PO (09:20)
--- NOTE | 2023-10-03 11:49 | PM.IMPN ---
Progress Note: A&P Assessment and Plan (1) Acute hypoxic respiratory failure: Code(s): J96.01 - Acute respiratory failure with hypoxia Status: Acute Assessment and Plan: - Likely related to COPD exacerbation vs/+ CHF exacerbation vs/+ ELIDIA vs other. - Much improvement in symptoms. - Troponin negative. - BNP 414. - Given a dose of IV lasix on admission. - CXR suggestive of early PNA. - CT chest PE with negative for PE and No acute cardiopulmonary pathology noted. - ECHO showing LVEF 60-65% with Grade I diastolic dysfunction. - Steroids adjustments deferred to dental appliance mechanic. - Continue supplemental O2 to maintain sats > 90%, now on 2L/NC. - Continue scheduled bronchodilators. - Further studies regarding possible ELIDIA deferred to dental appliance mechanic. - Tool Design Engineer following and we appreciate assistance. (2) COPD with exacerbation: Code(s): J44.1 - Chronic obstructive pulmonary disease with (acute) exacerbation Status: Acute Assessment and Plan: - Continue IV steroids per dental appliance mechanic. - Continue supplemental O2 to maintain sats > 90%, now on 2L/NC. - Continue scheduled bronchodilators. - Further mgt per Tool Design Engineer. (3) Fatigue: Code(s): R53.83 - Other fatigue Status: Acute Assessment and Plan: - Likely related to #1 and #2 +/vs ELIDIA. - CT Chest PE with no cardiopulmonary pathology. - Troponin negative X2. - TSH wnl. - H/H wnl. - No significant metabolic derangements noted. - Further studies r/t possible ELIDIA deferred to dental appliance mechanic. - Supplemental O2 bedtime for now. - Continue to monitor symptoms progression. - Consider further w/u if no improvement in symptoms. (4) Polycythemia, secondary: Code(s): D75.1 - Secondary polycythemia Status: Acute Assessment and Plan: - Possibly related to hypoxia vs ELIDIA vs other. - Monitor trend. (5) Hyperlipidemia: Qualifiers: Hyperlipidemia type: mixed hyperlipidemia Qualified Code(s): E78.2 - Mixed hyperlipidemia Code(s): E78.5 - Hyperlipidemia, unspecified Status: Acute Assessment and Plan: Continue statin. (6) Hypothyroidism: Qualifiers: Hypothyroidism type: acquired Qualified Code(s): E03.9 - Hypothyroidism, unspecified Code(s): E03.9 - Hypothyroidism, unspecified Status: Acute Assessment and Plan: - TSH wnl. - Continue home dose synthroid. (7) Elevated blood pressure reading: Code(s): R03.0 - Elevated blood-pressure reading, without diagnosis of hypertension Status: Acute Assessment and Plan: - BP well controlled. - Continue to monitor. 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 - Continue Plavix and statin. Plan Code Status: FULL-CODE. DVT Subjective Date/time seen: 10/03/23 10:29 Interval history: Patient presented to the hospital with worsening SOB and fatigue within the last couple of weeks, associated with fatigue. She had initially presented to her PCP and was noted with O2 sats dropping to high 70's and low 80's with minimal activity on RA, and patient does not use supplemental O2 at home. She was sent to the ER for evaluation. Patient is currently being treated for acute hypoxic respiratory failure, COPD exacerbation and possible ELIDIA. Tool Design Engineer assisting with stabilization of patient. Patient currently seated bedside and appears to be in no acute respiratory distress. Patient reporting much improvement in symptoms and states she feels more energetic as well. Reports minimal coughing episodes with scant clear sputum. Review of Systems Review of Systems: All systems reviewed & are unremarkable except as noted in HPI and below Exam Narrative: General: Fair appearing, no acute distress. HEENT: Atraumatic, PERRL, non-icteric, MMM, Neck: Supple.
[2023-10-03] MEDS: LOPERAMIDE HCL 2 MG CAPSULE PO (20:39)
[2023-10-03] MEDS: diphenhydrAMINE HCl CAP 25 MG CAPSULE PO (20:39)
[2023-10-04] VITALS (17 sets, daily range): BP systolic 123–150; BP diastolic 61–76; PULSE 63–96; RESP 15–28; TEMP 36.4–36.9; O2SAT 95–100
[2023-10-04] MEDS: IPRATROPIUM 0.5 MG/ALBUTEROL SULFATE 2.5 MG AMPUL.NEB 3 ML INHALATION ×2 (03:30→07:51)
[2023-10-04] MEDS: LEVOTHYROXINE SODIUM 88 MCG TABLET PO (05:43)
[2023-10-04] MEDS: UMECLIDINIUM/VILANTEROL 62.5-25 MCG ELLIPTA 1 PUFF INHALATION (07:52)
[2023-10-04] MEDS: ENOXAPARIN 40 MG/0.4 ML SYRINGE SUB-Q (09:38)
[2023-10-04] MEDS: methylPREDNISolone SOD SUCC 40 MG VIAL IV PUSH (09:38)
[2023-10-04] MEDS: SIMVASTATIN 20 MG TABLET 40 MG PO (09:39)
[2023-10-04] MEDS: CHOLECALCIFEROL 400 UNITS TABLET (VIT D) PO (09:39)
[2023-10-04] MEDS: FLUoxetine HCL 20 MG CAPSULE PO (09:39)
[2023-10-04] MEDS: ASCORBIC ACID 500 MG TABLET PO (09:39)
[2023-10-04] MEDS: CLOPIDOGREL BISULFATE 75 MG TABLET PO (09:39)
--- NOTE | 2023-10-04 09:50 | PM.PNPUL ---
Progress Note: A&P Assessment and Plan (1) COPD with exacerbation: Code(s): J44.1 - Chronic obstructive pulmonary disease with (acute) exacerbation Status: Acute Assessment and Plan: Gold grade 2 group E COPD patient with 56 pack year tobacco use, currently smoking 3-7 cigarettes a day, PFTs 06/28/2018 with FEV1 1.08 L, 51% predicted, ratio 51%, no bronchodilator response, air trapping, moderately decreased DLCO that corrects for alveolar volume. CT scan of the chest on 09/30/2023 with moderate apical predominant centrilobular emphysema. Chronic hypercarbic respiratory failure with blood gas on 2 L 7.40/55/87. Echocardiogram 10/02/2023 with PASP 25, normal RV size and function, normal right atrial size. Patient presented with polycythemia of 16.7 on 09/30/2023. 10/02/23: COPD with exacerbation, increased shortness of breath and drop in saturation at her primary care office yesterday. At home, she is using Anoro - dual bronchodilator - umeclidinium and vilanterol; needs ICS in a triple inhaler at discharge. She has albuterol as her rescue medication, infrequent use. She is on albuterol and ipratropium as an inpatient. plan: adjust IV steroids, 40 mg Q 8 hours, continue albuterol and ipratropium nebulized She will go home on a triple inhaler. Home O2 study before discharge. Acute worsening over the last 2 weeks or more, with saturation dropping to 79% with minimal exertion. She is on 2 L/min now, saturation 93, admitted and required 3 L/min, better. Will wean as tolerated, check her need for O2 with Home O2 study before discharge. She may require O2 in the home after discharge 10/04/2023: Patient states that she is breathing back to her normal. She has walked to the bathroom and states she is breathing normal. Her baseline she can walk 20 steps around the house. She lives with herself and has no home O2 oxygen. Currently she is on 2 L nasal cannula saturations 95%. She has no wheezing. Plan: Today is day 5 of systemic steroids and I will discontinue. Will continue patient on Anoro Ellipta 62.5-25 at 1 puff q.day. she tells me the DuoNebs are providing her no benefit. She has no evidence of pneumonia or tracheobronchitis therefore no antibiotics. goal saturation 90-94%. Will need formal home O2 assessment prior to discharge. Will check a CBC in the morning to reassess her polycythemia. Will follow with you. (2) Respiratory failure with hypercapnia: Code(s): J96.92 - Respiratory failure, unspecified with hypercapnia Status: Acute Assessment and Plan: Patient has GOLD grade 2 COPD with chronic hypercarbic respiratory failure with blood gas on 2 L of 7.40/55/87. patient would benefit from noninvasive ventilation to prevent further deterioration and hospitalizations. Patient was attempted on BiPAP but could not tolerate the pressures and was placed on AVAPS. 10/04/2023: Last night she wore noninvasive ventilator with the AVAPS mode rate set at 5, tidal volume 560, EPAP 7, minimal inspiratory pressure 18, maximal inspiratory pressure 25 and 30% FiO2. The patient states that this was too much pressure. I have placed her on noninvasive ventilator and adjusted the settings to comfort resulting in a rate of 14, tidal volume 500, EPAP 5, minimal inspiratory pressure 6, maximal inspiratory pressure 25, inspiratory time 1.0, rise of 5. She said this was much more comfortable. Plan: Tonight place on AVAPS: rate of 14, tidal volume 500, EPAP 5, minimal inspiratory pressure 6, maximal inspiratory pressure 25, inspiratory time 1.0, rise of 5, 28% FIO2. I will check an overnight oximetry and ABG prior to removal on these settings. I have informed the admissions coordinator that she will need noninvasive ventilation and we have initiated the process for her to get a home noninvasive ventilator. (3) Tobacco abuse: Code(s): Z72.0 - Tobacco use Status: Acute Assessment a
--- NOTE | 2023-10-04 14:24 | PM.IMPN ---
Progress Note: A&P Assessment and Plan (1) Acute hypoxic respiratory failure: Code(s): J96.01 - Acute respiratory failure with hypoxia Status: Acute Assessment and Plan: - Likely related to COPD exacerbation vs/+ CHF exacerbation vs/+ ELIDIA vs other. - Very significant improvement in symptoms. - Troponin negative. - BNP 414. - Given a dose of IV lasix on admission. - CXR suggestive of early PNA. - CT chest PE with negative for PE and No acute cardiopulmonary pathology noted. - ECHO showing LVEF 60-65% with Grade I diastolic dysfunction. - Steroids dc'd per interior design faculty member. - Continue supplemental O2 to maintain sats > 90%, now on 2L/NC. - Continue scheduled bronchodilators. - Home O2 eval prior to discharge. - Further mgt per interior design faculty member. - Appreciate interior design faculty member assistance. (2) COPD with exacerbation: Code(s): J44.1 - Chronic obstructive pulmonary disease with (acute) exacerbation Status: Acute Assessment and Plan: - IV steroids dc'd per interior design faculty member. - Continue supplemental O2 to maintain sats > 90%, now on 2L/NC. - Continue scheduled bronchodilators. - Further mgt per Private Client Advisor. (3) Fatigue: Code(s): R53.83 - Other fatigue Status: Acute Assessment and Plan: - Likely related to #1 and #2 +/vs ELIDIA. - CT Chest PE with no cardiopulmonary pathology. - Troponin negative X2. - TSH wnl. - H/H wnl. - No significant metabolic derangements. - Further studies r/t possible ELIDIA deferred to interior design faculty member. - APAP trials overnight. - Appreciate interior design faculty member assistance. (4) Polycythemia, secondary: Code(s): D75.1 - Secondary polycythemia Status: Acute Assessment and Plan: - Possibly related to hypoxia vs ELIDIA vs other. - Follow CBC in AM. (5) Hyperlipidemia: Qualifiers: Hyperlipidemia type: mixed hyperlipidemia Qualified Code(s): E78.2 - Mixed hyperlipidemia Code(s): E78.5 - Hyperlipidemia, unspecified Status: Acute Assessment and Plan: Continue statin. (6) Hypothyroidism: Qualifiers: Hypothyroidism type: acquired Qualified Code(s): E03.9 - Hypothyroidism, unspecified Code(s): E03.9 - Hypothyroidism, unspecified Status: Acute Assessment and Plan: - TSH wnl. - Continue home dose synthroid. (7) Elevated blood pressure reading: Code(s): R03.0 - Elevated blood-pressure reading, without diagnosis of hypertension Status: Acute Assessment and Plan: - BP well controlled. - Continue to monitor. 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 - Continue Plavix and statin. Plan Code Status: FULL-CODE. DVT Time Spent With Patient Time with patient: 25 - 35 minutes Subjective Date/time seen: 10/04/23 10:24 Interval history: Patient presented with worsening SOB and fatigue within the last couple of weeks. She initially presented to her PCP and was noted with O2 sats dropping to high 70's and low 80's with minimal activity on RA, with pt not on supplemental O2 at home. Patient currently being treated for acute hypoxic respiratory failure, COPD exacerbation and possible ELIDIA, with Private Client Advisor on consult. Patient currently seated bedside in no acute respiratory distress. She reports doing ok briefly with APAP equipment overnight but face mask wasn't the right fit so it had to be discontinued for retrial again today. States she could've been having ELIDIA for a long-while but wasn't aware. Reports minimal cough episodes with scant clear sputum. Review of Systems Review of Systems: All systems reviewed & are unremarkable except as noted in HPI and below Exam Narrative: General: Fair appearing, no acute distress. HEENT: Atraumatic, PERRL, non-icteric, MMM, Neck: Supple. Respiratory: Diminished with minimal expiratory
[2023-10-04] MEDS: ACETAMINOPHEN 500 MG TABLET PO (20:24)
[2023-10-04] MEDS: diphenhydrAMINE HCl CAP 25 MG CAPSULE PO (20:25)
[2023-10-05] VITALS (13 sets, daily range): BP systolic 134–143; BP diastolic 56–66; PULSE 58–102; RESP 18; TEMP 36.7–36.8; O2SAT 85–96
[2023-10-05 05:30] LABS: Alveolar/Arterial O2 Gradient 65.3 mmHg; Base Excess ABG 8.3 mEq/l (+/-2.0); Fractional Inspired Oxygen 28 %; HCO3 ABG 35.8 mEq/l (22.0-26.0); Oxygen Content ABG 20.2 %vol (16.0-22.0); Oxygen Saturation ABG 91.3 % (95.0-100.0); Oxyhemoglobin 91.1 % THb (90.0-100.0); PO2 FiO2 Ratio Arterial Blood 2.25 %; Total Hemoglobin 15.8 g/dL (12.0-18.0)
[2023-10-05 05:31] LABS: Device OTHER DEVICE; PCO2 ABG 60.5 mmHg (35.0-45.0); Site Drawn RIGHT BRACHIAL
[2023-10-05] MEDS: LEVOTHYROXINE SODIUM 88 MCG TABLET PO (06:00)
[2023-10-05 07:29] LABS: Basophils Percent Auto 0.1 % (0.2-1.2); Eosinophils Absolute Auto 0.1 K/mm3 (0-0.3); Eosinophils Percent Auto 0.9 % (0-4.4); Hematocrit 50.4 % (37.0-47.0); Hemoglobin 15.8 g/dL (12.0-15.0); Immature Granulocyte Absolute 0.07 K/mm3 (0.00-0.031); Immature Granulocyte Percent A 0.8 % (0-0.5); Lymphocytes Absolute Auto 1.19 K/mm3 (0.9-3.2); Mean Corpuscular HGB Conc 31.3 g/dl (32-36); Mean Corpuscular Volume 105.2 fl (80-100); Mean Platelet Volume 10.6 fl (7.4-10.4); Monocytes Absolute Auto 0.8 K/mm3 (0.1-0.6); Monocytes Percent Auto 9.9 % (2.6-8.5); Neutrophils Absolute Auto 6.3 K/mm3 (1.3-6.7); Neutrophils Percent Auto 74.3 % (45.5-73.1); Platelet Count Result 180 k/mm3 (150-375); Red Blood Count 4.79 M/mm3 (4.2-5.4); Red Cell Distribution Width 12.8 % (11.5-14.5); White Blood Count 8.5 K/mm3 (4.5-10.0)
[2023-10-05] MEDS: UMECLIDINIUM/VILANTEROL 62.5-25 MCG ELLIPTA 1 PUFF INHALATION (07:39)
[2023-10-05 07:45] LABS: Alanine Aminotransferase 45 U/L (6-35); Albumin Level 3.7 g/dL (3.5-5.1); Alkaline Phosphatase 55 U/L (38-126); Anion Gap 4 mmol/L (4-12); Aspartate Amino Transferase 37 U/L (14-36); Bilirubin,Total 0.7 mg/dL (0.2-1.3); Blood Urea Nitrogen 34 mg/dL (7-17); Calcium 9.4 mg/dL (8.4-10.2); Carbon Dioxide 39 mmol/L (22-30); Chloride 95 mmol/L (98-107); Estimated CRCL calculation 49 ml/min; Estimated Glomerular Filt Rate > 60; Glucose 81 mg/dL (65-110); Magnesium 1.9 mg/dL (1.6-2.3); Potassium 4.9 mmol/L (3.4-5.0); Sodium 138 mmol/L (137-145)
[2023-10-05] MEDS: CHOLECALCIFEROL 400 UNITS TABLET (VIT D) PO (08:23)
[2023-10-05] MEDS: SIMVASTATIN 20 MG TABLET 40 MG PO (08:23)
[2023-10-05] MEDS: ASCORBIC ACID 500 MG TABLET PO (08:23)
[2023-10-05] MEDS: FLUoxetine HCL 20 MG CAPSULE PO (08:23)
[2023-10-05] MEDS: CLOPIDOGREL BISULFATE 75 MG TABLET PO (08:23)
[2023-10-05] MEDS: ENOXAPARIN 40 MG/0.4 ML SYRINGE SUB-Q (08:24)
--- NOTE | 2023-10-05 09:12 | PM.PNPUL ---
Progress Note: A&P Assessment and Plan (1) COPD with exacerbation: Code(s): J44.1 - Chronic obstructive pulmonary disease with (acute) exacerbation Status: Acute Assessment and Plan: Gold grade 2 group E COPD patient with 56 pack year tobacco use, currently smoking 3-7 cigarettes a day, PFTs 06/28/2018 with FEV1 1.08 L, 51% predicted, ratio 51%, no bronchodilator response, air trapping, moderately decreased DLCO that corrects for alveolar volume. CT scan of the chest on 09/30/2023 with moderate apical predominant centrilobular emphysema. Chronic hypercarbic respiratory failure with blood gas on 2 L 7.40/55/87. Echocardiogram 10/02/2023 with PASP 25, normal RV size and function, normal right atrial size. Patient presented with polycythemia of 16.7 on 09/30/2023. 10/02/23: COPD with exacerbation, increased shortness of breath and drop in saturation at her primary care office yesterday. At home, she is using Anoro - dual bronchodilator - umeclidinium and vilanterol; needs ICS in a triple inhaler at discharge. She has albuterol as her rescue medication, infrequent use. She is on albuterol and ipratropium as an inpatient. plan: adjust IV steroids, 40 mg Q 8 hours, continue albuterol and ipratropium nebulized She will go home on a triple inhaler. Home O2 study before discharge. Acute worsening over the last 2 weeks or more, with saturation dropping to 79% with minimal exertion. She is on 2 L/min now, saturation 93, admitted and required 3 L/min, better. Will wean as tolerated, check her need for O2 with Home O2 study before discharge. She may require O2 in the home after discharge 10/04/2023: Patient states that she is breathing back to her normal. She has walked to the bathroom and states she is breathing normal. Her baseline she can walk 20 steps around the house. She lives with herself and has no home O2 oxygen. Currently she is on 2 L nasal cannula saturations 95%. She has no wheezing. Plan: Today is day 5 of systemic steroids and I will discontinue. Will continue patient on Anoro Ellipta 62.5-25 at 1 puff q.day. she tells me the DuoNebs are providing her no benefit. She has no evidence of pneumonia or tracheobronchitis therefore no antibiotics. goal saturation 90-94%. Will need formal home O2 assessment prior to discharge. Will check a CBC in the morning to reassess her polycythemia. 10/05/23: Patient states she is breathing well back at her baseline. Occasional cough but no phlegm or hemoptysis. She is afebrile. Currently she is on 2 L with saturations 99%. From a pulmonary perspective patient can be discharged on these pulmonary medications: Anoro Ellipta 62.5-25 at 1 puff b.i.d. Rescue albuterol 2 puffs q.4 hours p.r.n. shortness of breath or wheezing Oxygen at rest and with ambulation per home O2 assessment which has been ordered. When she naps or sleeps : home noninvasive ventilator through [employer] with TT V -Vaps AE mode rate of 18, tidal volume 500, EPAP minimum 5, EPAP maximum 15, minimum pressure support 6, maximum pressure support 25 with 3 L bleed in. patient said she wore this and it felt more comfortable in the hospital machine. She used it for 5 hours and slept. Overnight oximetry on these settings with 6 hours and 30 minutes recording with an average saturation of 90%, low saturation 77%, time with saturation less than or equal to 88% was 90 minutes, oxygen desaturation index 5.8. ABG on these settings was 7.39/61/63. follow-up in the Pulmonary Clinic in 4 weeks. I gave her our business card and informed our glass curvature gauger. Discussed with Carmen Ricketts, call with questions (2) Respiratory failure with hypercapnia: Code(s): J96.92 - Respiratory failure, unspecified with hypercapnia Status: Acute Assessment and Plan: Patient has GOLD grade 2 COPD with chronic hypercarbic respiratory failure with blood gas on 2 L of 7.40/55/87. patient would benefit from no
--- NOTE | 2023-10-05 14:18 | HOMEO2EVAL ---
Evaluation was performed at [facility] Home Oxygen Evaluation RC: Home Oxygen (O2) Evaluation Start: 10/04/23 13:43 Freq: ONCE Status: Active Protocol: RPE Activity Type Activity Date Activity User E-sign Co-sign Detail Recorded Client Recorded Date Recorded By Document 10/05/23 13:30 [email or web address] [email or web address] 10/05/23 14:18 GENARO Document 10/05/23 13:32 [email or web address] [email or web address] 10/05/23 14:18 GENARO Document 10/05/23 13:35 [email or web address] [email or web address] 10/05/23 14:18 GENARO Document 10/05/23 13:36 [email or web address] [email or web address] 10/05/23 14:18 GENARO Document 10/05/23 13:37 [email or web address] [email or web address] 10/05/23 14:18 GENARO Document 10/05/23 13:45 [email or web address] [email or web address] 10/05/23 14:18 GENARO 10/05/23 10/05/23 10/05/23 13:30 13:32 13:35 Home O2 Evaluation [Oxygen] -Test Phase Resting Resting Exercise -Oxygen Delivery Room Air Nasal Cannula Nasal Cannula -Oxygen Flow Rate (L/min) 1 1 [Pulse Oximetry] -Pulse Oximetry (90-100 %) 87 L 92 85 L [Pulse Rate] -Pulse Rate (60-100 beats/min) 80 99 [Comments] -Home Oxygen Evaluation Comments [Charges] -Evaluation Charges O2 Evaluation by Pulmonary 10/05/23 10/05/23 10/05/23 13:36 13:37 13:45 Home O2 Evaluation [Oxygen] -Test Phase Exercise Exercise Resting -Oxygen Delivery Nasal Cannula Nasal Cannula Nasal Cannula -Oxygen Flow Rate (L/min) 2 3 1 [Pulse Oximetry] -Pulse Oximetry (90-100 %) 88 L 92 93 [Pulse Rate] -Pulse Rate (60-100 beats/min) 102 H 80 [Comments] -Home Oxygen Evaluation Comments PT REQUIRES 1 L AT REST AND 3 L WITH ACTIVITY [Charges] -Evaluation Charges
--- NOTE | 2023-10-05 16:21 | PM.DS ---
DS: Admitting Diagnosis Discharge Date 10/05/2023 Admitting Diagnosis Worsening SOB, fatigue DS: Discharge Diagnosis Discharge Diagnosis (1) Acute hypoxic respiratory failure: Code(s): J96.01 - Acute respiratory failure with hypoxia Status: Acute Assessment and Plan: - Likely related to COPD exacerbation vs/+ CHF exacerbation vs/+ ELIDIA vs other. - Much improvement in symptoms. - Troponin negative. - BNP 414. - Given a dose of IV lasix on admission. - CXR suggestive of early PNA. - CT chest PE with negative for PE and No acute cardiopulmonary pathology noted. - ECHO showing LVEF 60-65% with Grade I diastolic dysfunction. - Steroids dc'd per nurse first assist. - Continue supplemental O2 to maintain sats > 90%, now on 1L/NC. - Continue scheduled bronchodilators. - Home O2 eval prior to discharge. - [employer] assisted in stabilizing patient. (2) COPD with exacerbation: Code(s): J44.1 - Chronic obstructive pulmonary disease with (acute) exacerbation Status: Acute Assessment and Plan: - Treated with IV steroids and steroids completed inpatient. - Will be on continuous home supplemental O2 to maintain sats > 90%, now on 1L/NC. - Continue scheduled bronchodilators at home. (3) Fatigue: Code(s): R53.83 - Other fatigue Status: Acute Assessment and Plan: - Likely related to #1 and #2 +/vs ELIDIA. - CT Chest PE with no cardiopulmonary pathology. - Troponin negative X2. - TSH wnl. - H/H wnl. - No significant metabolic derangements. - Continue home CPAP during sleep with new settings per nurse first assist. (4) Polycythemia, secondary: Code(s): D75.1 - Secondary polycythemia Status: Acute Assessment and Plan: - Likely related to hypoxia vs ELIDIA vs other. - Follow-up CBC with PCP outpatient. (5) Hyperlipidemia: Qualifiers: Hyperlipidemia type: mixed hyperlipidemia Qualified Code(s): E78.2 - Mixed hyperlipidemia Code(s): E78.5 - Hyperlipidemia, unspecified Status: Acute Assessment and Plan: Continue statin. (6) Hypothyroidism: Qualifiers: Hypothyroidism type: acquired Qualified Code(s): E03.9 - Hypothyroidism, unspecified Code(s): E03.9 - Hypothyroidism, unspecified Status: Acute Assessment and Plan: - TSH wnl. - Continue home dose synthroid. (7) Elevated blood pressure reading: Code(s): R03.0 - Elevated blood-pressure reading, without diagnosis of hypertension Status: Acute Assessment and Plan: - BP well controlled. - Continue to monitor. closely at home. 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 - Continue Plavix and statin. Plan Code Status: FULL-CODE. DVT DS: Summary Hospital Course Hospital Course: Patient presented with worsening SOB and fatigue within the last couple of weeks. She had initially presented to her PCP and was noted with O2 sats dropping to high 70's and low 80's during minimal activity on RA, with pt not on supplemental O2 at home. She was admitted for stabilization of acute hypoxic respiratory failure, COPD exacerbation and possible ELIDIA, with [employer] on consult. Patient has been stabilized and an oxygen desaturation study done demonstrated need for continuous home O2 at 1L/NC. Adjustments were also made to patient's CPAP settings per nurse first assist. Patient is medically stable for discharge home and will follow-up with nurse first assist outpatient. No acute distress was reported or noted prior to discharge. Status at Discharge Functional status at discharge: independent ambulation Overall status at discharge: patient is progressing back to baseline Time Spent with Patient Time attestation: Total time spent providing and/or coordinating discharge services: Time spent: Greater than 30 minutes
== END 2023-10-05 17:19 | disposition home or self-care (01) | DRG 190 ==
LOC: ANHED 19:32 → ANH3MED 20:52
PROVIDERS: Internal Medicine Critical Care Medicine; Internal Medicine Pulmonary Disease; Admitting Provider Internal Medicine; Emergency Provider Emergency Medicine; PCP Internal Medicine; Visit Provider Nurse Practitioner Adult Health
DX: J44.1 Chronic obstructive pulmonary disease with (acute) exacerbation (principal); J96.01 Acute respiratory failure with hypoxia; C34.90 Malignant neoplasm of unspecified part of unspecified bronchus or lung; J96.12 Chronic respiratory failure with hypercapnia; I12.9 Hypertensive chronic kidney disease with stage 1 through stage 4 chronic kidney disease, or unspecified chronic kidney disease; N18.9 Chronic kidney disease, unspecified; D75.1 Secondary polycythemia; E78.5 Hyperlipidemia, unspecified; E03.9 Hypothyroidism, unspecified; L40.9 Psoriasis, unspecified; M85.80 Other specified disorders of bone density and structure, unspecified site; Z72.0 Tobacco use; Z86.73 Personal history of transient ischemic attack (TIA), and cerebral infarction without residual deficits; Z79.02 Long term (current) use of antithrombotics/antiplatelets
CPT/HCPCS: 36415; 36600; 71045; 71275; 80053; 82104; 82375; 82805; 83050; 83735; 83880; 84443; 84484; 85025; 85610; 85730; 86430; 93005; 93306; 94002; 94003; 94618; 94640; 94762; 96365; 96366; 96375; 99285; A9270; G0378; J1100; J1650; J1940; J2919; J3475; J7030; Q9967

== ENCOUNTER 2023-11-16 13:32 | Outpatient (CLI) | payer MEDICARE, SELFPAY ==
[2023-11-16 14:00] VITALS: PULSE 86; O2SAT 88
[2023-11-16 14:03] VITALS: O2SAT 94
[2023-11-16 14:06] VITALS: PULSE 100; O2SAT 91
[2023-11-16 14:15] VITALS: PULSE 85; O2SAT 93
--- NOTE | 2023-11-16 16:10 | HOMEO2EVAL ---
Evaluation was performed at [facility] Home Oxygen Evaluation RC: Home Oxygen (O2) Evaluation Start: 11/16/23 16:05 Freq: Status: Active Protocol: RPE Activity Type Activity Date Activity User E-sign Co-sign Detail Recorded Client Recorded Date Recorded By Document 11/16/23 14:00 [email or web address] [email or web address] 11/16/23 16:10 GENARO Document 11/16/23 14:03 GENARO [email or web address] 11/16/23 16:10 GENARO Document 11/16/23 14:06 GENARO [email or web address] 11/16/23 16:10 GENARO Document 11/16/23 14:15 [email or web address] [email or web address] 11/16/23 16:10 GENARO 11/16/23 11/16/23 11/16/23 14:00 14:03 14:06 Home O2 Evaluation [Oxygen] -Test Phase Resting Resting Exercise -Oxygen Delivery Room Air Nasal Cannula Nasal Cannula -Oxygen Flow Rate (L/min) 2 2 [Pulse Oximetry] -Pulse Oximetry (90-100 %) 88 L 94 91 [Pulse Rate] -Pulse Rate (60-100 beats/min) 86 100 [Comments] -Home Oxygen Evaluation Comments PT REQUIRES 2 L WITH REST AND ACTIVITY [Charges] -Evaluation Charges O2 Evaluation by Pulmonary 11/16/23 14:15 Home O2 Evaluation [Oxygen] -Test Phase Resting -Oxygen Delivery Nasal Cannula -Oxygen Flow Rate (L/min) 2 [Pulse Oximetry] -Pulse Oximetry (90-100 %) 93 [Pulse Rate] -Pulse Rate (60-100 beats/min) 85 [Comments] -Home Oxygen Evaluation Comments [Charges] -Evaluation Charges
--- NOTE | 2023-11-16 16:12 | PCRCNOTE ---
FAXED HOME O2 TO OFFICE
--- NOTE | 2023-11-17 07:04 | P.PCNPFT_ITS ---
PFT Procedure Performed PFT Procedure Performed Spirometry with Pre/Post Bronchodilator Plethysmography (Lung Vol) Diffusing Cap (DLCO) Flow Vol Loop PFT Interpretation This is a pulmonary function test with pre and post-bronchodilator spirometry, plethysmography and diffusing capacity. The test was performed and results interpreted in accordance with the 2019 and 2005 ATS/ERS Task Force guidelines respectively using the Global Lung Function Initiative-2012 reference equations. Patient demonstrated good effort and cooperation. Reproducibility criteria were met. The quality of the pre bronchodilator spirometry maneuver was Grade A and post bronchodilator spirometry maneuver was Grade A. Findings: Spirometry: There is decreased maximal expiratory airflow at all lung volumes with concave expiratory flow tracing. The contour the inspiratory flow tracing is normal. The pre bronchodilator FVC is 1.75 L, 75% predicted. The pre bronchodilator FEV1 is 0.88 L, 49% predicted. The pre bronchodilator FEV1: FVC ratio is 50%. The post bronchodilator FVC is 1.95 L, representing an 11% increase. The post bronchodilator FEV1 is 0.95 L, representing an 8% increase. The post bronchodilator FEV1: FVC ratio is 49%. Plethysmography: The total lung capacity is 5.19 L, 110% predicted. The functi onal residual capacity is 3.74 L, 138% predicted. The residual volume is 3.03 L, 132% predicted. Diffusing capacity: The diffusing capacity unadjusted for hemoglobin and carboxyhemoglobin is 7.2, 39% predicted. The diffusing capacity adjusted for alveolar volume is 2.64, 63% predicted. In comparison to previous pulmonary function testing on 06/03/2018 the post bronchodilator FVC has decreased from 2.31 L to 1.95 L. The post bronchodilator FEV1 is decreased from 1.17 L to 0.95 L. The total lung capacity is unchanged from 5.24 L to 5.19 L. The functional residual capacity is unchanged from 3.72 L to 3.74 L. The residual volume is unchanged from 2.94 L to 3.03 L. The diffusing capacity unadjusted for hemoglobin and carboxyhemoglobin is decreased from 9.8 to 7.2. The diffusing capacity adjusted for alveolar volume has decreased from 3.28 to 2.64. Impression: There is a severe obstructive abnormality. There is no significant improvement after inhaling a single dose of albuterol. the lung volumes are normal. The diffusing capacity unadjusted for hemoglobin and carboxyhemoglobin is severely decreased and remains mildly decreased when adjusted for alveolar volume. In comparison to previous pulmonary function testing on 05/27/2018 there has been a greater than anticipated time dependent decrease in the FVC, FEV1 and diffusing capacity with no significant change in the total lung capacity, functional residual capacity or residual volume. Clinical correlation is recommended.
== END 2023-11-16 13:33 | disposition home or self-care (01) ==
LOC: ANHPFT 13:34
PROVIDERS: PCP Internal Medicine; Visit Provider Internal Medicine Pulmonary Disease
DX: J44.9 Chronic obstructive pulmonary disease, unspecified (principal); J96.92 Respiratory failure, unspecified with hypercapnia; R94.2 Abnormal results of pulmonary function studies
CPT/HCPCS: 94060; 94618; 94726; 94729

== ENCOUNTER 2023-12-01 12:33 | Outpatient (CLI) | payer MEDICARE, SELFPAY ==
[2023-12-01 13:00] VITALS: PULSE 90; O2SAT 94
[2023-12-01 13:05] VITALS: PULSE 91; O2SAT 86
[2023-12-01 13:10] VITALS: PULSE 90; O2SAT 87
[2023-12-01 13:15] VITALS: PULSE 90; O2SAT 87
[2023-12-01 13:20] VITALS: PULSE 87; O2SAT 92
[2023-12-01 13:35] VITALS: PULSE 89; O2SAT 93
--- NOTE | 2023-12-01 13:44 | HOMEO2EVAL ---
Evaluation was performed at [facility] Home Oxygen Evaluation RC: Home Oxygen (O2) Evaluation Start: 12/01/23 13:40 Freq: Status: Active Protocol: RPE Activity Type Activity Date Activity User E-sign Co-sign Detail Recorded Client Recorded Date Recorded By Document 12/01/23 13:00 [email or web address] [email or web address] 12/01/23 13:44 DJO Document 12/01/23 13:05 [email or web address] [email or web address] 12/01/23 13:44 DJO Document 12/01/23 13:10 DJO [email or web address] 12/01/23 13:44 DJO Document 12/01/23 13:15 DJO [email or web address] 12/01/23 13:44 DJO Document 12/01/23 13:20 [email or web address] [email or web address] 12/01/23 13:44 DJO Document 12/01/23 13:35 [email or web address] [email or web address] 12/01/23 13:44 DJO 12/01/23 12/01/23 12/01/23 13:00 13:05 13:10 Home O2 Evaluation [Oxygen] -Test Phase Resting Exercise Exercise -Oxygen Delivery Room Air Room Air Nasal Cannula -Oxygen Flow Rate (L/min) 1 [Pulse Oximetry] -Pulse Oximetry (90-100 %) 94 86 L 87 L [Pulse Rate] -Pulse Rate (60-100 beats/min) 90 91 90 [Evaluation] -Activity Tolerance Good [Charges] -Evaluation Charges O2 Evaluation by Pulmonary 12/01/23 12/01/23 12/01/23 13:15 13:20 13:35 Home O2 Evaluation [Oxygen] -Test Phase Exercise Exercise Resting -Oxygen Delivery Nasal Cannula Nasal Cannula Room Air -Oxygen Flow Rate (L/min) 2 3 [Pulse Oximetry] -Pulse Oximetry (90-100 %) 87 L 92 93 [Pulse Rate] -Pulse Rate (60-100 beats/min) 90 87 89 [Evaluation] -Activity Tolerance [Charges] -Evaluation Charges
== END 2023-12-01 12:34 | disposition home or self-care (01) ==
LOC: ANHPFT 12:36
PROVIDERS: PCP Internal Medicine; Visit Provider Internal Medicine Pulmonary Disease
DX: J44.9 Chronic obstructive pulmonary disease, unspecified (principal)
CPT/HCPCS: 94618

== ENCOUNTER 2023-12-15 12:18 | Outpatient (CLI) | payer MEDICARE, SELFPAY ==
--- NOTE | 2023-12-15 15:59 | WPDSIXMINUTE ---
Six Minute Walk Procedure Procedure Performed Pulmonary Stress Test (6 min walk) Six Minute Walk Six Minute Walk: This is a 6 minute walk test. The test was performed and interpreted in accordance with the 2014 ERS/ATS task force guidelines. Of note, patient used a wheeled walker and 3 L nasal cannula. Findings: The patient's resting 3 L nasal cannula oxygen saturation measured by pulse oximetry was 96%, the heart rate was 93 bpm, and the modified Wes dyspnea score was 0. Patient ambulated for 244 meters and oxygen saturation remained 93 to 95%. At the end of the study the heart rate was 102 bpm and the modified Wes dyspnea score was 7. The patient did have oxygen desaturations at rest or with ambulation on 3 L nasal cannula. Compared to 6 minute walk on 07/24/2020, when she used a wheeled walker and stop to rest 4 times for approximately 15-20 seconds, the ambulatory distance has increased from 46 meters to 244 m. Previously her room air flo saturation was 89% and currently on 3 L nasal cannula her flo saturation is 93%.
== END 2023-12-15 12:19 | disposition home or self-care (01) ==
LOC: ANHPFT 12:20
PROVIDERS: PCP Internal Medicine; Visit Provider Internal Medicine Pulmonary Disease
DX: J44.9 Chronic obstructive pulmonary disease, unspecified (principal)
CPT/HCPCS: 94618

== ENCOUNTER 2024-02-01 13:30 | Outpatient (RCR) | payer MEDICARE, SELFPAY ==
[2023-11-30 12:13] VITALS: PULSE 77
== END 2024-02-01 23:59 | disposition home or self-care (01) ==
LOC: ANHCPREHAB 13:30
PROVIDERS: PCP Internal Medicine; Visit Provider Internal Medicine Pulmonary Disease
DX: J44.9 Chronic obstructive pulmonary disease, unspecified (principal)
CPT/HCPCS: 94625

== ENCOUNTER 2024-05-12 13:30 | Outpatient (RCR) | payer MEDICARE, SELFPAY | END 2024-07-11 13:50 | disposition home or self-care (01) | LOC: ANHCPREHAB 13:30 | PROVIDERS: PCP Internal Medicine; Visit Provider Internal Medicine Pulmonary Disease | DX: J44.9 Chronic obstructive pulmonary disease, unspecified (principal); I12.9 Hypertensive chronic kidney disease with stage 1 through stage 4 chronic kidney disease, or unspecified chronic kidney disease; N18.9 Chronic kidney disease, unspecified; Z85.118 Personal history of other malignant neoplasm of bronchus and lung | CPT/HCPCS: 94625 ==

== ENCOUNTER 2024-08-30 09:32 | Outpatient (CLI) | payer MEDICARE, SELFPAY ==
--- NOTE | 2024-08-30 09:39 | ECHO_ITS ---
Patient Info Name: Sylvia Randall Age: 84 years : 1940 Gender: Female Ht: 63 in Wt: 197 lbs BSA: 2.03 m2 HR: 66 bpm BP: 133 / 101 mmHg Technical Quality: Good Exam Date: 08/30/2024 9:55 AM Patient Status: O Admit Date: 08/30/2024 Exam Type: CA echo doppler color flow Complete two-dimensional, color flow and Doppler transthoracic echocardiogram is performed. Distribution Estimator: Ashley Abrams Attending Provider: Allyn Vu [facility] Summary 1. Complete two-dimensional, color flow and Doppler transthoracic echocardiogram is performed. 2. Left ventricular chamber dimension is normal. 3. Left ventricular systolic function is normal, estimated at 60-65. 4. There is mild concentric increased left ventricular wall thickness. 5. The left ventricular diastolic function is grade I diastolic dysfunction. 6. E/e' 13 is mildly elevated. 7. There is mild aortic valve sclerosis. 8. There is mild aortic valve regurgitation. 9. There is mild to moderate mitral valve regurgitation. 10. There is mild pulmonic regurgitation. Left Ventricle Left ventricular chamber dimension is normal. Left ventricular systolic function is normal, estimated at 60-65. There is mild concentric increased left ventricular wall thickness. The left ventricular diastolic function is grade I diastolic dysfunction. E/e' 13 is mildly elevated. Right Ventricle Right ventricular chamber dimension is normal. Right ventricular systolic function is normal. Left Atria Left atrial chamber dimension is normal. Right Atria Right atrial chamber dimension is normal. Aortic Valve The aortic valve is trileaflet. There is mild aortic valve sclerosis. There is no aortic valve stenosis. There is mild aortic valve regurgitation. Pulmonic Valve There is mild pulmonic regurgitation. Mitral Valve There is no mitral valve stenosis. There is mild to moderate mitral valve regurgitation. Tricuspid Valve There is no tricuspid valve regurgitation. Pericardium/Pleural There is no pericardial effusion. Inferior Vena Cava Normal inferior vena cava with >50% collapse upon inspiration consistent with normal right atrial pressure, 5 mmHg. Aorta The aortic root size at the sinus of Valsalva is normal. Left Ventricular Outflow Tract Name Value Normal LVOT 2D LVOT Diameter 2.0 cm LVOT Doppler LVOT Peak Velocity 91 cm/s LVOT Peak Gradient 3 mmHg LVOT Mean Gradient 2 mmHg LVOT VTI 24 cm LVOT Stroke Volume 75 ml LVOT CO 5.0 l/min LVOT CI 2.4 l/min/m2 Pulmonic Valve Name Value Normal RVOT Doppler RVOT Peak Velocity 75 cm/s RVOT Peak Gradient 2 mmHg PV Doppler PV Peak Velocity 81 cm/s PV Peak Gradient 3 mmHg Mitral Valve Name Value Normal MV Diastolic Function MV E Peak Velocity 78 cm/s MV A Peak Velocity 96 cm/s MV E/A 0.8 MV Decel Time (PW) 265 ms MV Annular TDI MV E/e' (Septal) 16.1 MV E/e' (Lateral) 12.1 MV E/e' (Average) 14.1 Tricuspid Valve Name Value Normal Estimated PAP/RSVP RA Pressure 5 mmHg <=5 Aortic Valve Name Value Normal AV Doppler AV Peak Velocity 115 cm/s AV Peak Gradient 5 mmHg AV Area (Cont Eq Rashad) 2.4 cm2 AV DI (Rashad) 0.79 AV Regurgitation 2D LVOT Area 3.1 cm2 Ventricles Name Value Normal LV Dimensions 2D/MM IVS Diastolic Thickness (2D) 1.2 cm 0.6-1.0 LVID Diastole (2D) 4.8 cm 3.8-5.2 LVIW Diastolic Thickness (2D) 1.6 cm 0.6-0.9 LVID Systole (2D) 2.7 cm 2.2-3.5 LVOT Diameter 2.0 cm LV Mass (2D Cubed) 268.54 g 67.00-162.00 LV Mass Index (2D Cubed) 132 g/m2 43-95 Relative Wall Thickness (2D) 0.65 <=0.42 LV Fractional Shortening/Ejection Fraction 2D/MM LV Fractional Shortening (2D) 44 % 27-45 LV EF (2D Teichholz) 75 % LV Diastolic Volume (4C MOD) 115 ml LV EF (4C MOD) 60 % LV Diastolic Volume (2C MOD) 99 ml LV EF (2C MOD) 53 % LV Diastolic Volume (BP MOD) 110 ml 46-106 LV Diastolic Volume Index (BP MOD) 54 ml/m2 29-61 LV Systolic Volume (BP MOD) 46 ml 14-42 LV Systolic Volume Index (BP MOD) 23 ml/m2 8-24 LV EF (BP MOD) 58 % 54-74 LV Diastolic Length (4C) 7.7 cm LV Systolic Length (4C) 6.7 cm LV Stroke Volume (4C MOD) 70 ml Atria Name Value Normal LA Dimensions LA Volume (4C A-L) 32 ml LA Volume (BP A-L) 34 ml RA Dimensions RA Systolic Major Aurora Length (4C) 4.5 cm 2.2-2.8 RA Area (4C) 10.8 cm2 <=18.0 EchoPAC Name Value Normal AutoEF LVCO_BiP_Q (Sgvn0AWE) 3.5 l/min LVEF_BiP_Q (Hbvo2EHP) 68 % LVSV_BiP_Q (Ytoi0ECV) 52 ml LVVED_BiP_Q (Fivk9UTG) 76 ml LVVES_BiP_Q (Lejm4DEH) 24 ml HR_4Ch_Q (Myiq7REY) 69 bpm LVCO_4Ch_Q (Wmqs1ZTF) 3.2 l/min LVEF_4Ch_Q (Lrjj1OLT) 66 % LVLd_4Ch_Q (Sokj3GBU) 7.7 cm LVLs_4Ch_Q (Lhze1BGW) 6.6 cm LVSV_4Ch_Q (Xtmr3RLV) 46 ml LVVED_4Ch_Q (Rcef3TXF) 70 ml LVVES_4Ch_Q (Fkel1IPG) 24 ml HR_2Ch_Q (Cjbh7HBU) 66 bpm LVCO_2Ch_Q (Cqla2GMB) 3.8 l/min LVEF_2Ch_Q (Rdvo5HZU) 70 % LVLd_2Ch_Q (Lekj1RQJ) 7.5 cm LVLs_2Ch_Q (Kvxe7YDD) 6.3 cm LVSV_2Ch_Q (Cbrj8QZG) 57 ml LVVED_2Ch_Q (Xufi2HYH) 81 ml LVVES_2Ch_Q (Mggk5AIV) 25 ml Report Signatures
--- OUTSIDE RECORDS SUMMARY | 2024-08-30 09:41 | XMS_ITS | Referral Summary ---
Author Organization [facility] Address [facility] [place] [address] Care Team Providers Care Backend Developer Name Role Phone Ahsan Arana DO Unavailable [phone] Ahsan Arana DO Primary Care Provider [phone] Hai Desir MD Unavailable Nacho Raya MD PhD Unavailable Encounters Date Type Department Care Team Description 06/29/2024 9:00 AM CDT Office Visit [facility] [address] [place] [id number] Nacho Raya MD PhD Radiographic dx of cancer of upper lobe of left lung (Primary Dx); Malignant neoplasm of upper lobe, left bronchus or lung (HCC) 06/16/2024 9:48 AM CDT - 06/16/2024 11:59 PM CDT Hospital Encounter [facility] [address] [place] [phone] Malignant neoplasm of upper lobe, left bronchus or lung (HCC) Discharge Disposition: Discharge to home or self care 06/15/2024 Telephone [facility] [address] [place] [phone] taraaMay D. 06/14/2024 Telephone [facility] [address] [place] [phone] Chris Zimmerman, [place] 06/12/2024 Telephone [facility] [address] [place] [address] [phone] Chris Zimmerman, [place] from Last 3 Months Allergies No known active allergies Medications clopidogrel (PLAVIX) 75 mg tablet 05/29/2018 Active simvastatin (ZOCOR) 40 mg tablet 05/29/2018 Active levothyroxine (SYNTHROID, LEVOTHROID) 88 mcg tablet 05/29/2018 Active FLUoxetine (PROzac) 20 mg capsule 05/29/2018 Active ANORO ELLIPTA 62.5-25 mcg/actuation blister with device 03/15/2018 Active acetaminophen (TYLENOL) 500 mg tablet Take 500 mg by mouth every 6 (six) hours as needed for pain Active cholecalciferol (VITAMIN D-3) 1,000 unit capsule Take 1,000 Units by mouth daily Active albuterol HFA (PROVENTIL HFA,VENTOLIN HFA,PROAIR HFA) 90 mcg/actuation inhaler Inhale 2 puffs every 6 (six) hours as needed for wheezing Active ascorbic acid (VITAMIN C ORAL) Take by mouth Active Active Problems Problem Noted Date Diagnosed Date Malignant neoplasm of upper lobe, left bronchus or lung 11/26/2022 Cancer Staging:Clinical stage from 11/26/2022:Stage IA3(cT1c, cN0, cM0) - Signed by Nacho Raya MD PhD on 11/26/2022 Lower extremity edema 03/11/2020 Radiographic dx of cancer of upper lobe of left lung 06/14/2018 Cancer Staging:Clinical:Stage IIB(cT3, cN0, cM0) - Signed by Severo Katz MD on 06/27/2018 Diarrhea 09/05/2012 Impaired fasting glucose 05/31/2012 Osteopenia 06/04/2011 COPD (chronic obstructive pulmonary disease) 08/2011 Overview (01/13/2021): PFT mod 02/26 Hypothyroidism 03/20/2011 Aortic atherosclerosis 03/10/2011 Overview (01/13/2021): CXR 02/26 Anemia 02/24/2011 Plantar fasciitis 10/16/2010 Overview (01/13/2021): R>L Sees felt puller Vitamin D deficiency 08/23/2010 Colon polyps 08/23/2007 Overview (01/13/2021): Hyperplastic 08/22 Bilateral carotid artery stenosis 02/15/1999 Overview (01/13/2021): R 100% L 50-79% 02/26 R 100% L 50-79% & L vert 100% 07/28, 05/29 History of stroke without residual deficits 02/1999 Overview (01/13/2021): Left sided weakness '00 Hyperlipidemia 02/15/1999 Hypertension 02/15/1999 Overview (01/13/2021): Stress echo normal 02/26 Depression, major 02/15/1995 Social History Tobacco Use Types Packs/Day Years Used Date Smoking Tobacco: Every Day Cigarettes 1 56 Started: 02/15/1958; Last attempted to quit: 02/15/2014 Smokeless Tobacco: Never Tobacco Cessation:Ready to Q uit: Not Asked; Counseling Given: Not Answered Alcohol Use Standard Drinks/Week Comments Yes 2 (1 standard drink = 0.6 oz pur e alcohol) Rum - occasionally AUDIT-C Answer Date Recorded Frequency of Alcohol Consumption Monthly or less 08/07/2019 Average Number of Drinks 1 or 2 020 Frequency of Binge Drinking Monthly 07/17 Comments Unknown Sex and Gender Information Value Date Recorded Sex Assigned at Not on file Legal Sex Female 2:11 PM CDT Gender Identity Not on file Sexual Orientation Not on file Last Filed Vital Signs Vital Sign Reading Time Taken Comments Blood Pressure 126/78 06/29/2024 8:57 AM CDT Pulse 90 06/29/2024 8:57 AM CDT Temperature 36.6 C (97.8 F) 06/29/2024 8:57 AM CDT Respiratory Rate 20 06/29/2024 8:57 AM CDT Oxygen Saturation 95% 06/29/2024 8:57 AM CDT Inhaled Oxygen Concentration - - Weight 88.5 kg (195 lb) 06/29/2024 8:57 AM CDT Height 162.6 cm (5' 4) 10/26/2022 1:10 PM CDT Body Mass Index 33.47 10/26/2022 1:10 PM CDT Plan of Treatment Not on file Procedures Procedure Name Priority Date/Time Associated Diagnosis Comments CT CHEST WO CONTRAST Schedule Routine, Read Routine (OP Routine) 06/16/2024 10:27 AM CDT Malignant neoplasm of upper lobe, left bronchus or lung (HCC) from Last 3 Months Results * CT Chest WO Contrast (06/16/2024 10:27 AM CDT) Anatomical Region Laterality Modality Body N/A Computed Tomogra phy 06/27/2024 12:5 7 PM CDT Narrative 06/27/2024 1:11 PM CDT EXAM DESCRIPTION: CT CHEST WO CONTRAST REASON FOR STUDY: Non-small cell lung cancer (NSCLC), non-metastatic, assess treatment response F/u on lung cancer history of T3 N0 M0 (2 separate adjacent nodules of radiographically diagnosed [id number] lung cancer left upper lobe status post definitive SBRT completed July 2018. Developed radiographically diagnosed T1c [id number] lung cancer of the left upper lobe separate from her initial tumor and received empiric SBRT completed December 2022. TECHNIQUE: CT scan of the chest performed without intravenous contrast using helical scanning technique. Reconstructed coronal and sagittal MPR images reviewed. All images stored on PACS. Automated exposure control was used as a dose optimization technique for this examination. COMPARISON: 10/26/2022, 06/21/2018 12/17/2023 09/16/2023 06/17/2023 09/23/2022 REFERENCE: Per ACR white paper recommendations, unless otherwise specified no follow-up imaging is recommended for incidental renal and adrenal lesions per consensus recommendations based on imaging criteria. Further lab evaluation could be pursued based on clinical findings. FINDINGS: The sensitivity for detection of solid visceral lesions is diminished without the use of intravenous contrast. HARDWARE/LINES/TUBES: None. VASCULATURE: Multifocal atherosclerotic changes of the thoracic aorta and its major branches without aneurysm. Borderline dilated main pulmonary artery measuring approximately 3.0 cm suggestive of underlying pulmonary hypertension. MEDIASTINUM/HEART: Heart size within normal limits. No significant pericardial effusion. Small hiatal hernia. CORONARY ARTERY CALCIFICATION: Advanced multivessel atherosclerotic calcifications. LYMPH NODES: Partially calcified lymph nodes likely representing sequela of previous granulomatous disease. No pathologically enlarged lymphadenopathy. AIRWAY: Secretions/debris throughout the trachea and left mainstem bronchus. Mucous plugging noted within subsegmental airway of the left lower lobe. LUNGS: Similar appearing bandlike opacity of the medial left upper lobe with associated architectural distortion and volume loss not significantly changed over multiple prior examinations and at site of previously seen FDG avid mass consistent with postradiation treatment change. Resolution of previously seen left lung apex atypical cyst. Bandlike opacity of the posterior left lung apex with associated volume loss and architectural distortion at site of previously seen FDG avid cavitary lesions/thick-walled atypical cyst consistent with evolving postradiation treatment change. Background of severe emphysematous changes. No new focal consolidation, pneumothorax, or pleural effusion. No new suspicious pulmonary nodules. Unchanged 2 mm lateral right upper lobe pulmonary nodule (3; 30). UPPER ABDOMEN: No acute abnormality of the visualized abdomen. BONES/SOFT TISSUES: Unchanged superior endplate compression deformities of T12 and L1 with minimal central height loss. Multilevel degenerative changes of the visualized spine. No aggressive appearing osseous lesions. No acute osseous abnormality. Imaged portions of the thyroid gland are unremarkable. IMPRESSION: Similar-appearing postradiation treatment changes of the left upper lobe. No new suspicious pulmonary nodules. Recommend continued attention on follow-up. Severe emphysema. Secretions/debris throughout the central airway which is nonspecific but can be seen with chronic bronchitis. Incidental and chronic findings as above. THIS IS AN ELECTRONICALLY VERIFIED FINAL REPORT 06/27/2024 1:11 PM - Electronically signed by Nimesh Santoro M.D. NS: NS Report ID: [id number] Reading Location: [place] [address] Procedure Note Nimesh Santoro MD - 06/27/2024 EXAM DESCRIPTION: CT CHEST WO CONTRAST REASON FOR STUDY: Non-small cell lung cancer (NSCLC), non-metastatic,assess treatment response F/u on lung cancer history of T3 N0 M0 (2 separate adjacent nodules of radiographically diagnosed uda-[id number]-kcsw lung cancer left upper lobestatus post definitive SBRT completed July 2018. Developed radiographically diagnosed T1c [id number]-czah lung cancer of the left upper lobe separatefrom her initial tumor and received empiric SBRT completed December 2022. TECHNIQUE: CT scan of the chest performed without intravenous contrastusing helical scanning technique. Reconstructed coronal and sagittal MPR images reviewed. All images stored on PACS. Automated exposure control was usedas a dose optimization technique for this examination. COMPARISON: 10/26/2022, 06/21/2018 12/17/2023 09/16/2023 06/17/2023 09/23/2022 REFERENCE: Per ACR white paper recommendations, unless otherwise specifiedno follow-up imaging is recommended for incidental renal and adrenal lesionsper consensus recommendations based on imaging criteria. Further labevaluation could be pursued based on clinical findings. FINDINGS: The sensitivity for detection of solid visceral lesions is diminishedwithout the use of intravenous contrast. HARDWARE/LINES/TUBES: None. VASCULATURE: Multifocal atherosclerotic changes of the thoracic aorta andits major branches without aneurysm. Borderline dilated main pulmonary artery measuring approximately 3.0 cm suggestive of underlying pulmonary hypertension. MEDIASTINUM/HEART: Heart size within normal limits. No significant pericardial effusion. Small hiatal hernia. CORONARY ARTERY CALCIFICATION: Advanced multivessel atherosclerotic calcifications. LYMPH NODES: Partially calcified lymph nodes likely representing sequelaof previous granulomatous disease. No pathologically enlargedlymphadenopathy. AIRWAY: Secretions/debris throughout the trachea and left mainstembronchus. Mucous plugging noted within subsegmental airway of the left lower lobe. LUNGS: Similar appearing bandlike opacity of the medial left upper lobewith associated architectural distortion and volume loss not significantlychanged over multiple prior examinations and at site of previously seen FDG avidmass consistent with postradiation treatment change. Resolution of previously seen left lung apex atypical cyst. Bandlikeopacity of the posterior left lung apex with associated volume loss andarchitectural distortion at site of previously seen FDG avid cavitarylesions/thick-walled atypical cyst consistent with evolving postradiation treatment change. Background of severe emphysematous changes. No new focal consolidation, pneumothorax, or pleural effusion. No new suspicious pulmonary nodules. Unchanged 2 mm lateral right upperlobe pulmonary nodule (3; 30). UPPER ABDOMEN: No acute abnormality of the visualized abdomen. BONES/SOFT TISSUES: Unchanged superior endplate compression deformitiesof T12 and L1 with minimal central height loss. Multilevel degenerativechanges of the visualized spine. No aggressive appearing osseous lesions. Noacute osseous abnormality. Imaged portions of the thyroid gland are unremarkable. IMPRESSION: Similar-appearing postradiation treatment changes of the left upper lobe.No new suspicious pulmonary nodules. Recommend continued attention onfollow-up. Severe emphysema. Secretions/debris throughout the central airway whichis nonspecific but can be seen with chronic bronchitis. Incidental and chronic findings as above. THIS IS AN ELECTRONICALLY VERIFIED FINAL REPORT 06/27/2024 1:11 PM - Electronically signed by Nimesh Santoro M.D. NS: NS Report ID: [id number] Reading Location: [place] [address] Nacho Raya MD PhD IMG CT PROCEDURES Ophelia l Result from Last 3 Months Insurance MEDICARE RAILROAD [employer] SENIOR SUPPLEMENT MEDICARE RAILRO[employer] SENIOR SUPPLEMENT Care Teams Backend Developer Relationship Specialty Start Date End Date Ahsan Arana DO PCP - General 06/24/18 Ahsan Arana DO Internal Medicine 06/23/18 Hai Desir MD Referring Physician Thoracic Surgery 06/27/18 Nacho Raya MD PhD [address] [place] [address] Radiation Oncologist Radiation Oncology 11/26/22
--- OUTSIDE RECORDS SUMMARY | 2024-08-30 09:41 | XMS_ITS | Clinical Summary ---
Author Organization [facility] Address [address] [place] [address] Care Team Providers Care Color Blender Name Role Phone Sukhdeep Abdullahi MD Primary Care Provider [phone] Allergies No known active allergies Medications ACETAMINOPHEN/DP -HYDRAM HCL (TYLENOL PM ORAL) Take 1 Tab by mouth daily at bedtime. Active cholecalciferol, Vitamin D3, (VITAMIN D3) 1,000 unit Oral CapIndications:V itamin D deficiency Take 1 Cap by mouth daily. 90 Cap 1 2 Active calcium carbonate (CALTRATE) 600 mg (1,500 mg) Oral TabIndications:O steopenia Take 1 Tab by mouth 2 times daily. 1 Tab 0 2 Active melatonin 3 mg Oral Tab Take 1 Tab by mouth nightly as needed. Active ibuprofen (ADVIL) 200 mg Oral tablet Take 200 mg by mouth every 6 hours as needed. Active carvedilol (COREG) 6.25 mg tabletIndication s:Hypertension Take 2 Tabs by mouth daily. 180 Tab 1 4 Active simvastatin (ZOCOR) 20 mg tabletIndication s:Hyperlipidemia Take 1 Tab by mouth Daily LATE. 90 Tab 1 4 Active lisinopril (PRINIVIL) 20 mg tabletIndication s:Hypertension Take 1 Tab by mouth daily. 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 90 Tab 1 4 Active FLUoxetine (PROZAC) 20 mg capsuleIndicatio ns:Depression, major Take 1 Cap by mouth daily. 90 Cap 1 4 Active clopidogrel (PLAVIX) 75 mg TabletIndication s:History of stroke without residual deficits Take 1 Tab by mouth daily. 90 Tab 1 4 Active fluticasone-deborah nterol (BREO ELLIPTA) 100-25 mcg/dose Disk with DeviceIndication s:COPD (chronic obstructive pulmonary disease) (CMS/HCC) Take 1 Puff by inhalation daily. 1 Inhaler 5 5 Active Active Problems Patient Care Coordination No te Formatting of this note migh t be different from the original. 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 Vitamin D deficiency 08/23/2010 Colon polyps 08/23/2007 Overview (05/06/2013): Hyperplastic 08/22 History of stroke without residual deficits 02/1999 Overview (02/23/2011): Left sided weakness '00 Bilateral carotid artery stenosis 02/15/1999 Overview (05/25/2013): R 100% L 50-79% 02/26 R 100% L 50-79% & L vert 100% 07/28, 05/29 Hypertension 02/15/1999 Overview (03/10/2011): Stress echo normal 02/26 Hyperlipidemia 02/15/1999 Depression, major 02/15/1995 Resolved Problems Problem Noted Date Diagnosed Date Resolved Date Diverticulosis of colon 09/05/201212/16 Occlusion and stenosis of ca rotid artery without mention of cerebral infarction 08/24/2012 0 08/30/2012 Immunizations Immunization Administration Dates Next Due ([facility]7 Y[facility] UP) TETANUS AND DIPHTHERIA TOXOIDS, ADSORBED (5 LF OF TETANUS TOXOID AND 2 LF OF DIPHTHERIA TOXOID), 0.5ML (PF), IM 02/23/2011 Influenza Seasonal Unspecifi ed Formulation IM 12/16/2012,12/17/2011,11/15/2010 Pneumococcal conjugate, unsp ecified formulation 02/15/2007 Family History Medical History Relation Name Comments Prostate Cancer Brother 1 Diabetes Brother 2 Hypertension Brother 3 Hypertension Brother 4 Diabetes Mother Hypertension Mother Lung Cancer Mother Breast Cancer Paternal Grandmother age un known Colon Cancer Sister 1 Diabetes Sister 2 Hypertension Sister 3 Cancer Sister 4 bladder Ovarian Cancer Neg Hx Relation Name Status Comments Brother 1 Brother 2 Brother 3 Brother 4 Mother Paternal Grandmother Sister 1 Sister 2 Sister 3 Sister 4 Social History Tobacco Use Types Packs/Day Years Used Date Smoking Tobacco: Former Cigarettes 1 50 0 08/24/1959 - 08/23/2009 Smokeless Tobacco: Never Alcohol Use Standard Drinks/Week Comments Yes 1.7 (1 standard drink = 0.6 oz p ure alcohol) Comments Unknown Sex and Gender Information Value Date Recorded Sex Assigned at Not on file Legal Sex 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 Gender Identity Not on file Sexual Orientation Not on file Occupation Industry Job Start Date Job End Date Not on file Not on file Not on file Not on file Last Filed Vital Signs Vital Sign Reading Time Taken Comments Blood Pressure 130/70 09/21/2013 11:08 AM CDT Pulse 60 09/05/2012 7:56 AM CDT Temperature 36.2 C (97.1 F) 09/05/2012 7:37 AM CDT Respiratory Rate 18 09/05/2012 7:56 AM CDT Oxygen Saturation 94% 09/05/2012 7:56 AM CDT Inhaled Oxygen Concentration - - Weight 83.9 kg (185 lb) 09/21/2013 11:08 AM CDT Height 160 cm (5' 3) 05/18/2013 10:49 AM CDT Body Mass Index 32.77 05/18/2013 10:49 AM CDT Plan of Treatment Health Maintenance Due Date Last Done Comments PNEUMOCOCCAL VACCINE 50+ YEA RS (1 of 2 - PCV) 1961 02/15/2007 ZOSTER VACCINE (1 of 2) 1992 DTAP/TDAP/TD VACCINES (1 - Tdap) 02/24/2011 02/23/19 12 OSTEOPOROSIS SCREENING 06/03/2016 06/04/2011, 2011 RSV VACCINE (60+ or ) (1 - 1-dose 75+ series) 2017 COLORECTAL SCREENING 09/05/2017 09/05/2012, 09/05/2012, 08/23/2007, Additional history exists INFLUENZA VACCINE (#1) 2024 3, 12/17/2011, 11/15/2010 Procedures Procedure Name Priority Date/Time Associated Diagnosis Comments XR DEXA BONE DENSITY AXIAL 1 OR MORE SITES Routine 06/04/2011 1:31 PM CDT Postmenopause ENDOSCOPY, COLON, SCREENING Routine 08/23/2007 from Last 3 Months or Most Recently Relevant to Health Maintenance Results * XR DEXA BONE DENSITY AXIAL 1 OR MORE SITES (06/04/2011 1:31 PM CDT) Anatomical Region Laterality Modality Digital Radiogra phy 06/04/2011 1:17 PM CDT Impressions 06/04/2011 1:34 PM CDT IMPRESSION: Lumbar spine: This patient's bone mineral density of the spine is normal when compared to the normal range of young adults. The patient is at low risk for a compression fracture. Hips: This patient's bone mineral density of the femoral neck is osteopenic when compared to the normal range of young adults. The patient is at low risk for a hip fracture. Comments: None. Detailed report to follow. Dictated by Dr. Sukhdeep Mathews MD Narrative 06/04/2011 1:34 PM CDT Examination: Bone Density Study (DEXA) Clinical History: 71 year-old postmenopausal female. Findings: Lumbar Spine ( L 1-4 ) spine bone mineral density is 1.27 g/sq cm and corresponds to a T-score of 0.8. Femoral neck densities: Left femoral neck bone mineral density is 0.83 g/sq cm and corresponds to a T-score of -1.5. Right femoral neck bone mineral density is 0.86 g/sq cm and corresponds to a T-score of -1.3. Average femoral neck bone mineral density is 0.85 g/sq cm and corresponds to a T-score of -1.4. Procedure Note Sukhdeep Mathews MD - 06/04/2011 Examination: Bone Density Study (DEXA) Clinical History: 71 year-old postmenopausal female. Findings: Lumbar Spine ( L 1-4 ) spine bone mineral density is 1.27 g/sq cm and corresponds to a T-score of 0.8. Femoral neck densities: Left femoral neck bone mineral density is 0.83 g/sq cm and corresponds to a T-score of -1.5. Right femoral neck bone mineral density is 0.86 g/sq cm and corresponds to a T-score of -1.3. Average femoral neck bone mineral density is 0.85 g/sq cm and corresponds to a T-score of -1.4. IMPRESSION IMPRESSION: Lumbar spine: This patient's bone mineral density of the spine is normal when compared to the normal range of young adults. The patient is at low risk for a compression fracture. Hips: This patient's bone mineral density of the femoral neck is osteopenic when compared to the normal range of young adults. The patient is at low risk for a hip fracture. Comments: None. Detailed report to follow. Dictated by Dr. Sukhdeep Mathews MD Sukhdeep Abdullahi MD DIAGNOSTIC IMAGING ORDERABLES Fi nal Result * ENDOSCOPY, COLON, SCREENING (08/23/2007) us Abstract Provider GI PROCEDURE ORDERABLES Final Result [facility] from Last 3 Months or Most Recently Relevant to Health Maintenance Insurance MEDICARE RAILROAD [employer]NA MEDICARE SUPP AESSI MEDICARE Advance Directives For more information, please contact: [phone] * Full Code (Latest Code Status on File) Date Activated Date Inactivated Comments 09/05/2012 6:13 AM 09/05/2012 11:29 AM Care Teams Color Blender Relationship Specialty Start [place] [id number] [address] PCP - General Internal Medicine 02/23/11
--- OUTSIDE RECORDS SUMMARY | 2024-08-30 09:41 | XMS_ITS ---
Author Organization [facility] Address [address] [place] [address] Care Team Providers Care Senior Controls Technician Name Role Phone Ahsan Arana DO Unavailable [phone] Ahsan Arana DO Primary Care Provider [phone] Hai Desir MD Unavailable [phone] Nacho Raya MD PhD Unavailable [phone] Active Problems Problem Noted Date Diagnosed Date [...] Plantar fasciitis 10/16/2010 Overview (01/13/2021): R>L Sees cooker casing Vitamin D deficiency 08/23/2010 Colon polyps 08/23/2007 Overview (01/13/2021): Hyperplastic 08/22 Bilateral carotid artery stenosis 02/15/1999 Overview (01/13/2021): R 100% L 50-79% 02/26 R 100% L 50-79% & L vert 100% 07/28, 05/29 History of stroke without residual deficits 02/1999 Overview (01/13/2021): Left sided weakness '00 Hyperlipidemia 02/15/1999 Hypertension 02/15/1999 Overview (01/13/2021): Stress echo normal 02/26 Depression, major 02/15/1995 Current Treatment and Therapy Plans No current plan information found. Past Treatment and Therapy Plans No past plan information found. Radiation Treatments * Course [id number]/14/2022 - 12/18/2022 Treatment Period Energy Fraction Dose Fractions Total Dose Plans Planned SBRT LT LUNG 12/14/2022 - 12/18/2022 1,100 5 / 5,500 Reference Points Delivered SBRT SHAWNA LUNG 12/14/2022 - 12/18/2022 5,500 * Course [id number] 07/12/2018 - 07/18/2018 Treatment Period Energy Fraction Dose Fractions Total Dose Plans Planned LT LUNG 07/12/2018 - 07/18/2018 1,100 5 / 5,500 Reference Points Delivered PTV 07/12/2018 - 07/18/2018 5,500 Lifetime Dose Tracking * Chemical Lifetime Dose Automatic Entry Manual Entr y DLP 4,562 mGycm 4,562 mGycm 0 mGycm
--- OUTSIDE RECORDS SUMMARY | 2024-08-30 09:41 | XMS_ITS | Clinical Summary ---
Author Organization [facility] Address [facility] [place] [address] Care Team Providers Care Rubber Goods Finisher Name Role Phone Ahsan Arana DO Unavailable [phone] Ahsan Arana DO Primary Care Provider + [phone] Hai Desir MD Unavailable Nacho Raya MD PhD Unavailable Allergies No known active allergies Medications clopidogrel [...] Plantar fasciitis 10/16/2010 Overview (01/13/2021): R>L Sees digital recruiter Vitamin D deficiency 08/23/2010 Colon polyps 08/23/2007 Overview (01/13/2021): Hyperplastic 08/22 Bilateral carotid artery stenosis 02/15/1999 Overview (01/13/2021): R 100% L 50-79% 02/26 R 100% L 50-79% & L vert 100% 07/28, 4 History of stroke without residual deficits 02/1999 Overview (01/13/2021): Left sided weakness '00 Hyperlipidemia 02/15/1999 Hypertension 02/15/1999 Overview (01/13/2021): Stress echo normal 02/26 Depression, major 02/15/1995 Encounters Date Type Department Care Team Description 06/29/2024 9:00 AM CDT Office Visit [facility] Radiation Oncology [address] [place] [address] Nacho Raya MD PhD Radiographic dx of cancer of upper lobe of left lung (Primary Dx); Malignant neoplasm of upper lobe, left bronchus or lung (HCC) 06/16/2024 9:48 AM CDT - 06/16/2024 11:59 PM CDT Hospital Encounter [facility] [address] [place] [id number] Malignant neoplasm of upper lobe, left bronchus or lung (HCC) Discharge Disposition: Discharge to home or self care 06/15/[address] [address] Keith, Briana Perkins 06/14/2024 Telephone [facility] Radiation Oncology [address] [place] [address] Chris Zimmerman, CONNOR 06/12/2024 Telephone [facility] Radiation Oncology [address] [place] [address] Chris Zimmerman, CONNOR from Last 3 Months Surgical History Surgery Date Site/Laterality Comments HYSTERECTOMY EYE SURGERY 02/15/2006 - 02/14/2007 Eyelid surgery LARYNGOSCOPY 02/15/1981 - 02/14/1982 Removal of vocal cord nodules ECTOPIC SURGERY HERNIA REPAIR Medical History Medical History Date Comments Emphysema lung (HCC) Chronic kidney disease (CKD), stage III (moderat e) (HCC) Vocal cord polyp Thyroid disease Hypercholesteremia Depression Family History Medical History Relation Name Comments Non-Hodgkin's Lymphoma Father Cancer Maternal Grandfather Cancer Mother Breast cancer Paternal Grandmother Colon cancer Sister Relation Name Status Comments Father Maternal Grandfather Mother Paternal Grandmother Sister Social History Tobacco Use Types Packs/Day Years [...] on file Sexual Orientation Not on file Obstetrics History Last Filed Vital Signs Vital Sign Reading [...] 10/26/2022 1:10 PM CDT Plan of Treatment Health Maintenance Due Date Last Done Comments Depression Screening 1942 Fall Risk Assessment 1942 Hepatitis B Screening 1960 Zoster Vaccine (1 of 2) 1992 Well Visit 65+ 2007 DTaP/Tdap/Td Vaccine (1 - Tdap) 02/24/2011 2 Osteoporosis Screening-Bone Density Scan 06/03/2013 06/04/2011, 06/04/2011, 06/04/2011 Pneumococcal vaccine 65+ (2 of 2 - PPSV23) 02/02/2018 12/08/2017, 02/15/2007 Influenza Vaccine (Season Ended) 2024 12/08/2017, 01/04/2013, 12/16/2012, Additional history exists Procedures Procedure Name Priority Date/Time Associated Diagnosis [...] (2 separate adjacent nodules of radiographically diagnosed sgx-yfvpv-kmjb lung cancer left upper lobe status post definitive SBRT completed July 2018. Developed radiographically diagnosed T1c uke-ynxur-wxfo lung cancer of the left upper lobe [...] Nimesh Santoro M.D. NS: NS Report ID: [id number] Reading Location: [id number] Procedure Note Nimesh Santoro MD - 06/27/2024 EXAM DESCRIPTION: CT CHEST WO CONTRAST REASON FOR STUDY: Non-small cell lung cancer (NSCLC), non-metastatic,assess treatment response F/u on lung cancer history of T3 N0 M0 (2 separate adjacent nodules of radiographically diagnosed jfc-ejiqs-diug lung cancer left upper lobestatus post definitive SBRT completed July 2018. Developed radiographically diagnosed T1c nlj-qfkem-tnig lung cancer of the left upper lobe [...] Electronically signed by Nimesh Santoro M.D. NS: PAULINE Report ID: [id number] Reading Location: [place] [address] Nacho Raya MD PhD IMG CT PROCEDURES Ophelia l Result from Last 3 Months Insurance T SENIOR SUPPLEMENT MEDICARE RAILROAD [place] [address] Care Teams Rubber Goods Finisher Relationship Specialty Start Date End Date Ahsan Arana DO PCP - General 06/24/18 Ahsan Arana DO Internal Medicine 06/23/18 Hai Desir MD Referring Physician Thoracic Surgery 06/27/18 Nacho Raya MD PhD [address] [place] [address] Radiation Oncologist Radiation Oncology 11/26/22
== END 2024-08-30 09:33 | disposition home or self-care (01) ==
LOC: ANHCARD 09:35
PROVIDERS: PCP Internal Medicine; Visit Provider Clinical Nurse Specialist
DX: R06.09 Other forms of dyspnea (principal); I35.8 Other nonrheumatic aortic valve disorders; I08.0 Rheumatic disorders of both mitral and aortic valves; I37.1 Nonrheumatic pulmonary valve insufficiency
CPT/HCPCS: 93306

== ENCOUNTER 2024-10-13 11:45 | Outpatient (CLI) | payer MEDICARE, SELFPAY ==
--- OUTSIDE RECORDS SUMMARY | 2024-10-13 11:48 | XMS_ITS | Clinical Summary ---
Author Organization [facility] Address [facility] [place] [address] Care Team Providers Care Customs Patrol Officer Name Role Phone Ahsan Arana DO Unavailable [phone] Ahsan Arana DO Primary Care Provider + [phone] Hai Desir MD Unavailable Nacho Raya MD [...] IIB(cT3, cN0, cM0) - Signed by Severo Kazt MD on 06/27/2018 Diarrhea 09/05/2012 Impaired fasting glucose 05/31/2012 Osteopenia 06/04/2011 COPD (chronic obstructive pulmonary disease) 08/2011 Overview (01/13/2021): PFT mod 02/26 Hypothyroidism 03/20/2011 Aortic atherosclerosis 03/10/2011 Overview (01/13/2021): CXR 02/26 Anemia 02/24/2011 Plantar fasciitis 10/16/2010 Overview (01/13/2021): R>L Sees stitchdowns toe former Vitamin D deficiency 08/23/2010 Colon polyps 08/23/2007 Overview (01/13/2021): Hyperplastic 08/22 Bilateral carotid artery stenosis 02/15/1999 Overview (01/13/2021): R 100% L 50-79% 02/26 R 100% L 50-79% & L vert 100% 07/28, 4 History of stroke without residual deficits 02/1999 Overview (01/13/2021): Left sided weakness '00 Hyperlipidemia 02/15/1999 Hypertension 02/15/1999 Overview (01/13/2021): Stress echo normal 02/26 Depression, major 02/15/1995 Surgical History Surgery Date Site/Laterality Comments HYSTERECTOMY EYE SURGERY 02/15/2006 - 02/14/2007 Eyelid surgery LARYNGOSCOPY 02/15/1981 - 02/14/1982 Removal of vocal cord nodules ECTOPIC SURGERY HERNIA REPAIR Medical History Medical History Date Comments Emphysema lung Chronic kidney disease (CKD), stage III (moderat [...] Pneumococcal vaccine 65+ (2 of 2 - PPSV23, PCV20, or PCV21) 02/02/2018 12/08/2017, 02/15/2007 Influenza Vaccine (#1) 2024 8, 01/04/2013, 12/16/2012, Additional history exists Insurance MEDICARE RAILROAD AETNA SENIOR SUPPLEMENT MEDICARE RAILROAD AETNA SENIOR SUPPLEMENT Care Teams Customs Patrol Officer Relationship Specialty Start Date End Date Ahsan Arana DO PCP - General 06/24/18 Ahsan Arana DO Internal Medicine 06/23/18 Hai Desir MD Referring Physician Thoracic Surgery 06/27/18 Nacho Raya MD PhD [address] [place] [address] Radiation Oncologist Radiation Oncology 11/26/22
--- OUTSIDE RECORDS SUMMARY | 2024-10-13 11:48 | XMS_ITS | Clinical Summary ---
Author Organization [facility] Address [address] [place] [address] Care Team Providers Care Field Technical Support Consultant Name Role Phone Sukhdeep Abdullahi MD Primary Care Provider [phone] Allergies No known active allergies Medications ACETAMINOPHEN/DP [...] s:Hypothyroidism Take 1 Tab by mouth daily skirt panel assembler. 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 engineering aide Vitamin D deficiency 08/23/2010 Colon polyps 08/23/2007 [...] 08/30/2012 Immunizations Immunization Administration Dates Next Due ([facility]7 Y[facility]) TETANUS AND DIPHTHERIA [...] on file Legal Sex Female 6:05 AM SCIENCE CONSULTANT Gender Identity Not on file Sexual Orientation [...] VACCINES (1 - Tdap) 02/24/2011 02/23/19 12 Traditional Medicare (ACO) A nnual Wellness Visit 05/26/2012 05/26/2011 OSTEOPOROSIS SCREENING 06/03/2016 06/04/2011, 2011 RSV VACCINE [...] Insurance MEDICARE RAILROAD AETNA MEDICARE SUPP [facility]ESSI [facility] Address: [address] [address] [place] [address] MEDICARE Advance Directives For more information, please contact: [phone] * Full Code (Latest Code Status on File) Date Activated Date Inactivated Comments 09/05/2012 6:13 AM 09/05/2012 11:29 AM Care Teams Field Technical Support Consultant Relationship Specialty Start [place] [id number] [address] PCP - General Internal Medicine 02/23/11
--- OUTSIDE RECORDS SUMMARY | 2024-10-13 11:48 | XMS_ITS ---
Author Organization [facility] Address [address] [place] [address] Care Team Providers Care Drying Unit Felting Machine Operator Name Role Phone Ahsan Arana DO Unavailable [phone] Ahsan Arana DO Primary Care Provider + [phone] Hai Desir MD Unavailable [phone] Nacho Raya MD PhD Unavailable [phone] Active Problems Problem Noted Date Diagnosed Date [...] Plantar fasciitis 10/16/2010 Overview (01/13/2021): R>L Sees edgerman Vitamin D deficiency 08/23/2010 Colon polyps 08/23/2007 [...]
[2024-10-13 18:22] LABS: Hematocrit 45.7 % (37.0-47.0); Hemoglobin 13.7 g/dL (12.0-15.0); Immature Granulocyte Percent A 0.5 % (0-0.5); Lymphocytes Absolute Auto 0.78 K/mm3 (0.9-3.2); Mean Corpuscular HGB Conc 30.0 g/dl (32-36); Mean Corpuscular Hemoglobin 32.3 pg (26-34); Mean Corpuscular Volume 107.8 fl (80-100); Nucleated Red Blood Cells Absolute Auto 0.000 K/mm3 (0.0-0.012); Nucleated Red Blood Cells Perc 0.0 % (0.0-0.2); Platelet Count Result 224 k/mm3 (150-375); Red Blood Count 4.24 M/mm3 (4.2-5.4); White Blood Count 8.1 K/mm3 (4.5-10.0)
[2024-10-13 19:06] LABS: Alanine Aminotransferase 17 U/L (6-35); Albumin Level 3.9 g/dL (3.5-5.1); Alkaline Phosphatase 89 U/L (38-126); Anion Gap 3 mmol/L (4-12); Aspartate Amino Transferase 41 U/L (14-36); Bilirubin,Total 0.6 mg/dL (0.2-1.3); Blood Urea Nitrogen 23 mg/dL (7-17); Calcium 9.3 mg/dL (8.4-10.2); Carbon Dioxide 36 mmol/L (22-30); Chloride 101 mmol/L (98-107); Estimated Glomerular Filt Rate > 60; Glucose 115 mg/dL (65-110); Potassium 4.5 mmol/L (3.4-5.0); Sodium 140 mmol/L (137-145); Total Protein 6.9 g/dL (6.3-8.2)
[2024-10-13 19:38] LABS: Thyroid Stimulating Hormone 1.710 uIU/mL (0.465-4.680)
== END 2024-10-13 11:46 | disposition home or self-care (01) ==
LOC: ANHGOSHLAB 11:46
PROVIDERS: PCP Nurse Practitioner; Visit Provider Nurse Practitioner
DX: E03.9 Hypothyroidism, unspecified (principal); I10 Essential (primary) hypertension; E55.9 Vitamin D deficiency, unspecified; Z13.29 Encounter for screening for other suspected endocrine disorder
CPT/HCPCS: 36415; 80053; 82306; 84443; 85025

== ENCOUNTER 2024-10-20 09:42 | Inpatient (IN) | payer MEDICARE, SELFPAY ==
[2024-10-20] VITALS (19 sets, daily range): BP systolic 125–183; BP diastolic 54–101; PULSE 68–93; RESP 16–32; TEMP 36.4–37.1; O2SAT 94–100; BMI 33.3; BMI 32.7
--- NOTE | ~2024-10-20 | CT_ITS ---
EXAM: CT brain wo con - 10/20/2024 10:44 CDT History: 84 years old Female with altered mental status COMPARISON: None available. PROCEDURE: CT of the head without contrast. Axial, sagittal and coronal reformatted planes were evaluated. Automatic exposure control was used for this study. FINDINGS: BRAIN PARENCHYMA: No acute hemorrhage. No mass effect or herniation. Juarez-white matter differentiation is maintained. Mild chronic volume loss. Scattered hypodensities in subcortical and periventricular white matter, likely representing chronic microvascular ischemic changes in this age group. Atherosc lerotic calcification of the intracranial vessels is noted. Chronic infarct in the right parietal region. VENTRICLES/ EXTRA-AXIAL SPACES: No hydrocephalus or extra-axial fluid collection. EXTRACRANIAL STRUCTURES: No calvarial fracture. IMPRESSION: 1. No evidence for acute intracranial hemorrhage or calvarial fracture. 2. Multiple chronic findings, as above. Reviewed, dictated and finalized at location N.
--- NOTE | ~2024-10-20 | XR_ITS ---
EXAM/PROCEDURE: XR chest 1V portable - 10/20/2024 10:08 CDT HISTORY: 84 years old Female with cough TECHNIQUE: Two view(s) of the chest. COMPARISON: None available. FINDINGS: LUNGS/ PLEURA: Mild vascular congestion, bilateral interstitial and alveolar opacities. Right basilar consolidation. HEART/ MEDIASTINUM: Mild cardiomegaly. BONES: Degenerative changes. OTHER: Visualized upper abdomen is unremarkable. IMPRESSION: Mild CHF. Superimposed infection cannot be excluded. Findings can represent pneumonia in appropriate clinical settings. Clinical correlation is recommended. Short-term follow-up chest radiograph is recommended after appropriate clinical therapy to document stability and/or resolution. Reviewed, dictated and finalized at location N. IMPRESSION: Mild CHF. Superimposed infection cannot be excluded. Findings can represent pne umonia in appropriate clinical settings. Clinical correlation is recommended. S hort-term follow-up chest radiograph is recommended after appropriate clinical therapy to document stability and/or resolution.
--- NOTE | ~2024-10-20 | XR_ITS ---
EXAMINATION: XR chest 1V portable DATE: 10/23/2024 05:27 INDICATION: Shortness of breath TECHNIQUE: frontal view of the chest was obtained. COMPARISON: Chest radiograph dated 10/20/2024 FINDINGS: Mild increased interstitial pattern with bronchial wall thickening in the bilateral lower lung zones which could represent bronchitis, mild pulmonary edema reactive airway disease/asthma. No focal airspace consolidation, pleural effusion or pneumothorax. The cardiomediastinal silhouette is normal. Moderate to severe thoracic spondylosis. IMPRESSION: 1. Mild interstitial opacities in the bilateral lower lung zones which could represent bronchitis, mild pulmonary edema or reactive airway disease/asthma. Reviewed, dictated and finalized at location A. IMPRESSION: 1. Mild interstitial opacities in the bilateral lower lung zones which could re present bronchitis, mild pulmonary edema or reactive airway disease/asthma.
--- OUTSIDE RECORDS SUMMARY | 2024-10-20 09:49 | XMS_ITS | Clinical Summary ---
Author Organization 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
--- OUTSIDE RECORDS SUMMARY | 2024-10-20 09:49 | XMS_ITS ---
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
--- OUTSIDE RECORDS SUMMARY | 2024-10-20 09:49 | XMS_ITS | Clinical Summary ---
Author Organization [facility] Address [address] [place] [address] Care Team Providers Care Top Coater Name Role Phone Sukhdeep Abdullahi MD Primary Care Provider [phone] Allergies No known active allergies Medications ACETAMINOPHEN/DP [...] s:Hypothyroidism Take 1 Tab by mouth daily park interpreter. 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
--- NOTE | 2024-10-20 09:53 | ECG_ITS ---
Test Date: 2024-10-20 10:04:46 Measurements Intervals [place] Rate: 73 P: 73 SC: 161 QRS: -76 QRSD: 146 T: 49 QT: 421 QTc: 464 Interpretive Statements SINUS RHYTHM POSSIBLE LEFT ATRIAL ENLARGEMENT [-0.1mV P-WAVE IN V1/V2] RIGHT BUNDLE BRANCH BLOCK [120+ ms QRS DURATION, UPRIGHT V1, 40+ ms S IN I/aVL/V4/V5/V6] LEFT ANTERIOR FASCICULAR BLOCK [QRS AXIS <= -45, QR IN I, RS IN II] LEFT VENTRICULAR HYPERTROPHY Compared to ECG 09/30/2023 19:13:34 NO SIGNIFICANT CHANGES Electronically Signed On 10-20-2024 12:40:50 CDT by Oni Hodges M.D.
[2024-10-20 10:18] LABS: Hematocrit 46.7 % (37.0-47.0); Hemoglobin 13.6 g/dL (12.0-15.0); Immature Granulocyte Percent A 0.4 % (0-0.5); Lymphocytes Absolute Auto 0.87 K/mm3 (0.9-3.2); Mean Corpuscular HGB Conc 29.1 g/dl (32-36); Mean Corpuscular Hemoglobin 32.0 pg (26-34); Mean Corpuscular Volume 109.9 fl (80-100); Nucleated Red Blood Cells Absolute Auto 0.000 K/mm3 (0.0-0.012); Nucleated Red Blood Cells Perc 0.0 % (0.0-0.2); Platelet Count Result 186 k/mm3 (150-375); Red Blood Count 4.25 M/mm3 (4.2-5.4); White Blood Count 10.2 K/mm3 (4.5-10.0)
[2024-10-20 10:31] LABS: Alveolar/Arterial O2 Gradient < 0.0 mmHg; Fractional Inspired Oxygen 32 %; HCO3 ABG 43.5 mEq/l (22.0-26.0); Oxygen Content ABG 19.8 %vol (16.0-22.0); Oxygen Saturation ABG 99.1 % (95.0-100.0); PO2 ABG 181.5 mmHg (80.0-100.0); PO2 FiO2 Ratio Arterial Blood 5.67 %
[2024-10-20 10:34] LABS: Liters per Minute 3.0 LPM; Modified Allen's Test Pass; PCO2 ABG 84.9 mmHg (35.0-45.0); Site Drawn RIGHT RADIAL
[2024-10-20 10:41] LABS: INR 1.0; Prothrombin Time 13.6 Seconds (11.1-14.7)
[2024-10-20 10:42] LABS: Partial Thromboplastin Time 23.1 Seconds (22.3-36.8)
[2024-10-20 10:45] LABS: Procalcitonin 0.0 ng/mL
[2024-10-20 10:51] LABS: Alanine Aminotransferase 17 U/L (6-35); Albumin Level 3.9 g/dL (3.5-5.1); Alkaline Phosphatase 86 U/L (38-126); Aspartate Amino Transferase 27 U/L (14-36); Bilirubin,Total 0.6 mg/dL (0.2-1.3); Blood Urea Nitrogen 24 mg/dL (7-17); Calcium 9.7 mg/dL (8.4-10.2); Chloride 95 mmol/L (98-107); Estimated CRCL calculation 56 ml/min; Estimated Glomerular Filt Rate > 60; Glucose 158 mg/dL (65-110); Lipase 270 U/L (23-300); Magnesium 1.7 mg/dL (1.6-2.3); Potassium 4.3 mmol/L (3.4-5.0); Sodium 141 mmol/L (137-145); Total Protein 7.0 g/dL (6.3-8.2)
--- OUTSIDE RECORDS SUMMARY | 2024-10-20 10:52 | XMS_ITS | Clinical Summary ---
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
--- OUTSIDE RECORDS SUMMARY | 2024-10-20 10:52 | XMS_ITS | Clinical Summary ---
Author Organization [facility] Address [address] [place] [address] Care Team Providers Care Diesel Machinist Name Role Phone Sukhdeep Abdullahi MD Primary Care Provider [phone] Allergies No known active allergies Medications ACETAMINOPHEN/DP [...] s:Hypothyroidism Take 1 Tab by mouth daily financial project manager. 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 Vitamin D deficiency 08/23/2010 Colon polyps 08/23/2007 [...] 08/30/2012 Immunizations Immunization Administration Dates Next Due [facility]7 Y[facility]) TETANUS AND DIPHTHERIA TOXOIDS, ADSORBED [...] on file Legal Sex Female 6:05 AM JUDICIAL ADMINISTRATIVE ASSISTANT Gender Identity Not on file Sexual Orientation [...] Insurance MEDICARE RAILROAD AETNA MEDICARE SUPP [facility] Address: [address] [address] [place] [address] MEDICARE Advance Directives For more information, please contact: [phone] * Full Code (Latest Code Status on File) Date Activated Date Inactivated Comments 09/05/2012 6:13 AM 09/05/2012 11:29 AM Care Teams Diesel Machinist Relationship Specialty Start [place] [id number] [address] PCP - General Internal Medicine 02/23/11
--- OUTSIDE RECORDS SUMMARY | 2024-10-20 10:52 | XMS_ITS ---
Author Organization [facility] Address [address] [place] [address] Care Team Providers Care Executive Chef Name Role Phone Ahsan Arana DO Unavailable [phone] Ahsan Arana DO Primary Care Provider + [phone] Hai Desir MD Unavailable [phone] Nacho Raya MD PhD Unavailable [phone] Active Problems Problem Noted Date Diagnosed Date [...] Plantar fasciitis 10/16/2010 Overview (01/13/2021): R>L Sees comparative sociology professor Vitamin D deficiency 08/23/2010 Colon polyps 08/23/2007 [...]
--- NOTE | 2024-10-20 10:53 | ED.GENADULT ---
HPI - General Adult General Chief complaint: Weakness Stated complaint: weakness for past week. Time Seen by Provider: 10/20/24 09:46 History of Present Illness HPI narrative: Patient 84-year-old female who presents emergency department with chief complaint of confusion generalized weakness. The patient has history of COPD and wears 3 L nasal cannula oxygen all the time over the last few weeks the patient has had difficulty getting dressed has been not acting her usual self the patient reports she was seen by her primary care provider who did outpatient labs and told her that everything looked okay on her blood work the family has noticed that she is weaker on the right side and this is been ongoing for several weeks Related Data Home Medications ?Medication ?Instructions ?Recorded ?Confirmed ?Last Taken ?Type cholecalciferol (vitamin D3) 10 400 unit PO DAILY 01/25/19 10/13/24 Unknown History mcg (400 unit) capsule ascorbate calcium (vitamin C) 500 500 mg PO DAILY 12/29/19 10/13/24 Unknown History mg tablet diphenhydramine 25 1 tablet PO QHS PRN Sleep 02/17/22 10/13/24 Unknown History mg-acetaminophen 500 mg tablet (Tylenol PM Extra Strength) loperamide 2 mg capsule (Imodium 2 mg PO HS 03/02/23 10/13/24 Unknown History A-D) albuterol sulfate 90 mcg/actuation 2 puff inhalation Q4H PRN 09/30/23 10/13/24 Unknown History aerosol inhaler Shortness Of Breath Or Wheezing Allergies Allergy/AdvReac Type Severity Reaction Status Date / Time No Known Allergies Allergy Unknown Verified 10/13/24 11:19 Review of Systems Review of Systems: A 10 system review of systems was completed on the patient and is negative except for what is stated in the HPI. Nursing and ancillary documentation was reviewed. [facility] Past Medical History Medical History Anxiety and depression Hx of stroke without residual deficits 2001 COPD (chronic obstructive pulmonary disease) TIA (transient ischemic attack) , status unknown Tubular Vocal cord disease Nodule removed from vocal cord Hyperlipidemia Osteopenia Hypothyroidism Lung cancer CKD (chronic kidney disease) Hypertension Pulmonary emphysema Surgical History Surgical History H/O eye surgery Eye lid 2006 H/O: hysterectomy 2000 Hiatal hernia Family History Family History Mother Patient's mother is Hypertension Chronic obstructive pulmonary disease Diabetes mellitus Acute myocardial infarction Father Patient's father is Family history of lymphoma Sibling Carcinoma of colon Chronic obstructive pulmonary disease Diabetes mellitus Son Brain cancer Lung cancer Social History Social History Smoking packs per day: 0.25 Smoking cigarettes per day: 5.0 Years smoked: 50 Smoking pack-years: 12.50 Smoking status: Former smoker Smoking end date: 02/15/14 Alcohol intake: current Drinks per week: 1 Alcohol use details: Pt drinks rarely. Substance use: never Do You Feel Safe in your Home?: Yes Lack of Transportation: No Lack of Food: Never True Current Housing: I Have Housing Concerned About Future Housing: No Difficulty Paying Gas/Electric Bills: No Difficulty Paying for Meds: No Currently Unemployed: No Education: High School Diploma/GED Difficulty w/ Childcare or Family Care: No Spiritual care concerns: No Exam Narrative: GENERAL: Well-appearing, well-nourished, and in no acute distress. HEAD: Normocephalic, atraumatic. EYES: PERRLA and EOMI. ENT: Nares clear, no rhinorrhea or epistaxis. Mucous membranes moist. NECK: Supple. CHEST: Clear to auscultation. No respiratory distress. HEART: Regular rate and rhythm. No murmur heard. Normal peripheral pulses. ABDOMEN: Soft, nontender, nondistended, normal active bowel sounds. EXTREMITIES: Normal range of motion. No edema. SKIN: Warm, dry, no rash. NEURO: No focal deficits. Alert and oriented x3. PSYCH: Normal mood and affect. Course Vital Signs Vital signs: Vital Signs Temperature 36.6 C 10/20/24 09:54 Pulse Rate 84 10/20/24 09:54 Respiratory Rate 24 H 10/20/24 09:54 Blood Pressure 163/99 H 10/20/24 09:54 Pulse Oximetry 100 10/20/24 09:54 Oxygen Delivery Nasal Cannula 10/20/24 09:54 Oxygen Flow Rate 3 10/20/24 09:54 Temperature 36.6 C 10/20/24 09:54 Pulse Rate 73 10/20/24 11:00 Respiratory Rate 26 H 10/20/24 11:00 Blood Pressure 183/75 H 10/20/24 10:36 Pulse Oximetry 100 10/20/24 11:00 Oxygen Delivery BiPAP 10/20/24 11:00 Oxygen Flow Rate 3 10/20/24 09:54 Medical Decision Making MDM Narrative Medical decision making narrative: Differential diagnosis includes pneumonia, COPD exacerbation, hypercapnic respiratory failure, CVA, electrolyte abnormality ABG showed a pH of 7.32 with pCO2 of 84.9 Patient was started on BiPAP Patient was given steroids breathing treatments chest x-ray showed interstitial edema versus infiltrate the patient was started on Rocephin Zithromax The patient is negative for COVID flu and RSV Case was discussed with the hospitalist patient received further care in the inpatient setting Vital Signs Vital Signs: Vital Signs Temperature 36.6 C 10/20/24 09:54 Pulse Rate 84 10/20/24 09:54 Respiratory Rate 24 H 10/20/24 09:54 Blood Pressure 163/99 H 10/20/24 09:54 Pulse Oximetry 100 10/20/24 09:54 Oxygen Delivery Nasal Cannula 10/20/24 09:54 Oxygen Flow Rate 3 10/20/24 09:54 Temperature 36.6 C 10/20/24 09:54 Pulse Rate 73 10/20/24 11:00 Respiratory Rate 26 H 10/20/24 11:00 Blood Pressure 183/75 H 10/20/24 10:36 Pulse Oximetry 100 10/20/24 11:00 Oxygen Delivery BiPAP 10/20/24 11:00 Oxygen Flow Rate 3 10/20/24 09:54 Lab Data 10/20/24 09:59 10/20/24 09:59 Labs: Lab Results 10/20/24 10/20/24 10/20/24 Range/Units 09:59 09:59 09:59 WBC Cancelled 10.2 H RBC Cancelled 4.25 Hgb Cancelled Hct MCV MCH MCHC RDW Plt Count MPV Immature Gran % (Auto) Neut % (Auto) Lymph % (Auto) [place] % (Auto) Eos % (Auto) Baso % (Auto) Lymph # (Auto) [place] # (Auto) Eos # (Auto) Baso # (Auto) Abs Immat Gran (auto) Absolute Neuts (auto) Absolute Nucleated RBC Band Neutrophils % Nucleated RBC % Platelet Estimate (Adequate) % Immature Plt Fraction Hypochromasia Macrocytosis (NORMAL) Schistocytes PT (11.1-14.7) Seconds INR APTT (22.3-36.8) Seconds Sodium (137-145) mmol/L Potassium (3.4-5.0) mmol/L Chloride (98-107) mmol/L Carbon Dioxide Anion Gap BUN (7-17) mg/dL Creatinine (0.7-1.0) mg/dL Estim Creat Clear Calc ml/min Estimated GFR (59 - ) Glucose (65-110) mg/dL Lactic Acid (0.7-2.0) mmol/L Calcium (8.4-10.2) mg/dL Magnesium (1.6-2.3) mg/dL Total Bilirubin (0.2-1.3) mg/dL AST (14-36) U/L ALT (6-35) U/L Alkaline Phosphatase (38-126) U/L Troponin I (0.000-0.034) ng/mL NT-Pro-B Natriuret Pep (19.9-100) pg/mL Total Protein (6.3-8.2) g/dL Albumin (3.5-5.1) g/dL Lipase (23-300) U/L Procalcitonin ng/mL Influenza A (RT-PCR) (Negative) Influenza B (RT-PCR) (Negative) RSV (RT-PCR) (Negative) SARS-CoV-2 RNA (RT-PCR) (Negative) 10/20/24 10/20/24 10/20/24 Range/Units 09:59 09:59 09:59 WBC RBC Hgb 13.6 Hct Cancelled 46.7 MCV Cancelled 109.9 H MCH Cancelled MCHC RDW Plt Count MPV Immature Gran % (Auto) Neut % (Auto) Lymph % (Auto) [place] % (Auto) Eos % (Auto) Baso % (Auto) Lymph # (Auto) [place] # (Auto) Eos # (Auto) Baso # (Auto) Abs Immat Gran (auto) Absolute Neuts (auto) Absolute Nucleated RBC Band Neutrophils % Nucleated RBC % Platelet Estimate (Adequate) % Immature Plt Fraction Hypochromasia Macrocytosis (NORMAL) Schistocytes PT (11.1-14.7) Seconds INR APTT (22.3-36.8) Seconds Sodium (137-145) mmol/L Potassium (3.4-5.0) mmol/L Chloride (98-107) mmol/L Carbon Dioxide Anion Gap BUN (7-17) mg/dL Creatinine (0.7-1.0) mg/dL Estim Creat Clear Calc ml/min Estimated GFR (59 - ) Glucose (65-110) mg/dL Lactic Acid (0.7-2.0) mmol/L Calcium (8.4-10.2) mg/dL Magnesium (1.6-2.3) mg/dL Total Bilirubin (0.2-1.3) mg/dL AST (14-36) U/L ALT (6-35) U/L Alkaline Phosphatase (38-126) U/L Troponin I (0.000-0.034) ng/mL NT-Pro-B Natriuret Pep (19.9-100) pg/mL Total Protein (6.3-8.2) g/dL Albumin (3.5-5.1) g/dL Lipase (23-300) U/L Procalcitonin ng/mL Influenza A (RT-PCR) (Negative) Influenza B (RT-PCR) (Negative) RSV (RT-PCR) (Negative) SARS-CoV-2 RNA (RT-PCR) (Negative) 10/20/24 10/20/24 10/20/24 Range/Units 09:59 09:59 09:59 WBC RBC Hgb Hct MCV MCH 32.0 MCHC Cancelled 29.1 L RDW Cancelled 12.1 Plt Count Cancelled MPV Immature Gran % (Auto) Neut % (Auto) Lymph % (Auto) [place] % (Auto) Eos % (Auto) Baso % (Auto) Lymph # (Auto) [place] # (Auto) Eos # (Auto) Baso # (Auto) Abs Immat Gran (auto) Absolute Neuts (auto) Absolute Nucleated RBC Band Neutrophils % Nucleated RBC % Platelet Estimate (Adequate) % Immature Plt Fraction Hypochromasia Macrocytosis (NORMAL) Schistocytes PT (11.1-14.7) Seconds INR APTT (22.3-36.8) Seconds Sodium (137-145) mmol/L Potassium (3.4-5.0) mmol/L Chloride (98-107) mmol/L Carbon Dioxide Anion Gap BUN (7-17) mg/dL Creatinine (0.7-1.0) mg/dL Estim Creat Clear Calc ml/min Estimated GFR (59 - ) Glucose (65-110) mg/dL Lactic Acid (0.7-2.0) mmol/L Calcium (8.4-10.2) mg/dL Magnesium (1.6-2.3) mg/dL Total Bilirubin (0.2-1.3) mg/dL AST (14-36) U/L ALT (6-35) U/L Alkaline Phosphatase (38-126) U/L Troponin I (0.000-0.034) ng/mL NT-Pro-B Natriuret Pep (19.9-100) pg/mL Total Protein (6.3-8.2) g/dL Albumin (3.5-5.1) g/dL Lipase (23-300) U/L Procalcitonin ng/mL Influenza A (RT-PCR) (Negative) Influenza B (RT-PCR) (Negative) RSV (RT-PCR) (Negative) SARS-CoV-2 RNA (RT-PCR) (Negative) 10/20/24 10/20/24 10/20/24 Range/Units 09:59 09:59 09:59 WBC RBC Hgb Hct MCV MCH MCHC RDW Plt Count 186 MPV Cancelled 10.0 Immature Gran % (Auto) Cancelled 0.4 Neut % (Auto) Cancelled Lymph % (Auto) [place] % (Auto) Eos % (Auto) Baso % (Auto) Lymph # (Auto) [place] # (Auto) Eos # (Auto) Baso # (Auto) Abs Immat Gran (auto) Absolute Neuts (auto) Absolute Nucleated RBC Band Neutrophils % Nucleated RBC % Platelet Estimate (Adequate) % Immature Plt Fraction Hypochromasia Macrocytosis (NORMAL) Schistocytes PT (11.1-14.7) Seconds INR APTT (22.3-36.8) Seconds Sodium (137-145) mmol/L Potassium (3.4-5.0) mmol/L Chloride (98-107) mmol/L Carbon Dioxide Anion Gap BUN (7-17) mg/dL Creatinine (0.7-1.0) mg/dL Estim Creat Clear Calc ml/min Estimated GFR (59 - ) Glucose (65-110) mg/dL Lactic Acid (0.7-2.0) mmol/L Calcium (8.4-10.2) mg/dL Magnesium (1.6-2.3) mg/dL Total Bilirubin (0.2-1.3) mg/dL AST (14-36) U/L ALT (6-35) U/L Alkaline Phosphatase (38-126) U/L Troponin I (0.000-0.034) ng/mL NT-Pro-B Natriuret Pep (19.9-100) pg/mL Total Protein (6.3-8.2) g/dL Albumin (3.5-5.1) g/dL Lipase (23-300) U/L Procalcitonin ng/mL Influenza A (RT-PCR) (Negative) Influenza B (RT-PCR) (Negative) RSV (RT-PCR) (Negative) SARS-CoV-2 RNA (RT-PCR) (Negative) 10/20/24 10/20/24 10/20/24 Range/Units 09:59 09:59 09:59 WBC RBC Hgb Hct MCV MCH MCHC RDW Plt Count MPV Immature Gran % (Auto) Neut % (Auto) 85.3 H Lymph % (Auto) Cancelled 8.5 L [place] % (Auto) Cancelled 4.8 Eos % (Auto) Cancelled Baso % (Auto) Lymph # (Auto) [place] # (Auto) Eos # (Auto) Baso # (Auto) Abs Immat Gran (auto) Absolute Neuts (auto) Absolute Nucleated RBC Band Neutrophils % Nucleated RBC % Platelet Estimate (Adequate) % Immature Plt Fraction Hypochromasia Macrocytosis (NORMAL) Schistocytes PT (11.1-14.7) Seconds INR APTT (22.3-36.8) Seconds Sodium (137-145) mmol/L Potassium (3.4-5.0) mmol/L Chloride (98-107) mmol/L Carbon Dioxide Anion Gap BUN (7-17) mg/dL Creatinine (0.7-1.0) mg/dL Estim Creat Clear Calc ml/min Estimated GFR (59 - ) Glucose (65-110) mg/dL Lactic Acid (0.7-2.0) mmol/L Calcium (8.4-10.2) mg/dL Magnesium (1.6-2.3) mg/dL Total Bilirubin (0.2-1.3) mg/dL AST (14-36) U/L ALT (6-35) U/L Alkaline Phosphatase (38-126) U/L Troponin I (0.000-0.034) ng/mL NT-Pro-B Natriuret Pep (19.9-100) pg/mL Total Protein (6.3-8.2) g/dL Albumin (3.5-5.1) g/dL Lipase (23-300) U/L Procalcitonin ng/mL Influenza A (RT-PCR) (Negative) Influenza B (RT-PCR) (Negative) RSV (RT-PCR) (Negative) SARS-CoV-2 RNA (RT-PCR) (Negative) 10/20/24 10/20/24 10/20/24 Range/Units 09:59 09:59 09:59 WBC RBC Hgb Hct MCV MCH MCHC RDW Plt Count MPV Immature Gran % (Auto) Neut % (Auto) Lymph % (Auto) [place] % (Auto) Eos % (Auto) 0.5 Baso % (Auto) Cancelled 0.5 Lymph # (Auto) Cancelled 0.87 L [place] # (Auto) Cancelled Eos # (Auto) Baso # (Auto) Abs Immat Gran (auto) Absolute Neuts (auto) Absolute Nucleated RBC Band Neutrophils % Nucleated RBC % Platelet Estimate (Adequate) % Immature Plt Fraction Hypochromasia Macrocytosis (NORMAL) Schistocytes PT (11.1-14.7) Seconds INR APTT (22.3-36.8) Seconds Sodium (137-145) mmol/L Potassium (3.4-5.0) mmol/L Chloride (98-107) mmol/L Carbon Dioxide Anion Gap BUN (7-17) mg/dL Creatinine (0.7-1.0) mg/dL Estim Creat Clear Calc ml/min Estimated GFR (59 - ) Glucose (65-110) mg/dL Lactic Acid (0.7-2.0) mmol/L Calcium (8.4-10.2) mg/dL Magnesium (1.6-2.3) mg/dL Total Bilirubin (0.2-1.3) mg/dL AST (14-36) U/L ALT (6-35) U/L Alkaline Phosphatase (38-126) U/L Troponin I (0.000-0.034) ng/mL NT-Pro-B Natriuret Pep (19.9-100) pg/mL Total Protein (6.3-8.2) g/dL Albumin (3.5-5.1) g/dL Lipase (23-300) U/L Procalcitonin ng/mL Influenza A (RT-PCR) (Negative) Influenza B (RT-PCR) (Negative) RSV (RT-PCR) (Negative) SARS-CoV-2 RNA (RT-PCR) (Negative) 10/20/24 10/20/24 10/20/24 Range/Units 09:59 09:59 09:59 WBC RBC Hgb Hct MCV MCH MCHC RDW Plt Count MPV Immature Gran % (Auto) Neut % (Auto) Lymph % (Auto) [place] % (Auto) Eos % (Auto) Baso % (Auto) Lymph # (Auto) [place] # (Auto) 0.5 Eos # (Auto) Cancelled 0.1 Baso # (Auto) Cancelled 0.1 Abs Immat Gran (auto) Cancelled Absolute Neuts (auto) Absolute Nucleated RBC Band Neutrophils % Nucleated RBC % Platelet Estimate (Adequate) % Immature Plt Fraction Hypochromasia Macrocytosis (NORMAL) Schistocytes PT (11.1-14.7) Seconds INR APTT (22.3-36.8) Seconds Sodium (137-145) mmol/L Potassium (3.4-5.0) mmol/L Chloride (98-107) mmol/L Carbon Dioxide Anion Gap BUN (7-17) mg/dL Creatinine (0.7-1.0) mg/dL Estim Creat Clear Calc ml/min Estimated GFR (59 - ) Glucose (65-110) mg/dL Lactic Acid (0.7-2.0) mmol/L Calcium (8.4-10.2) mg/dL Magnesium (1.6-2.3) mg/dL Total Bilirubin (0.2-1.3) mg/dL AST (14-36) U/L ALT (6-35) U/L Alkaline Phosphatase (38-126) U/L Troponin I (0.000-0.034) ng/mL NT-Pro-B Natriuret Pep (19.9-100) pg/mL Total Protein (6.3-8.2) g/dL Albumin (3.5-5.1) g/dL Lipase (23-300) U/L Procalcitonin ng/mL Influenza A (RT-PCR) (Negative) Influenza B (RT-PCR) (Negative) RSV (RT-PCR) (Negative) SARS-CoV-2 RNA (RT-PCR) (Negative) 10/20/24 10/20/24 10/20/24 Range/Units 09:59 09:59 09:59 WBC RBC Hgb Hct MCV MCH MCHC RDW Plt Count MPV Immature Gran % (Auto) Neut % (Auto) Lymph % (Auto) [place] % (Auto) Eos % (Auto) Baso % (Auto) Lymph # (Auto) [place] # (Auto) Eos # (Auto) Baso # (Auto) Abs Immat Gran (auto) 0.04 H Absolute Neuts (auto) Cancelled 8.7 H Absolute Nucleated RBC Cancelled 0.000 Band Neutrophils % Not Reportable Nucleated RBC % Cancelled Platelet Estimate (Adequate) % Immature Plt Fraction Hypochromasia Macrocytosis (NORMAL) Schistocytes PT (11.1-14.7) Seconds INR APTT (22.3-36.8) Seconds Sodium (137-145) mmol/L Potassium (3.4-5.0) mmol/L Chloride (98-107) mmol/L Carbon Dioxide Anion Gap BUN (7-17) mg/dL Creatinine (0.7-1.0) mg/dL Estim Creat Clear Calc ml/min Estimated GFR (59 - ) Glucose (65-110) mg/dL Lactic Acid (0.7-2.0) mmol/L Calcium (8.4-10.2) mg/dL Magnesium (1.6-2.3) mg/dL Total Bilirubin (0.2-1.3) mg/dL AST (14-36) U/L ALT (6-35) U/L Alkaline Phosphatase (38-126) U/L Troponin I (0.000-0.034) ng/mL NT-Pro-B Natriuret Pep (19.9-100) pg/mL Total Protein (6.3-8.2) g/dL Albumin (3.5-5.1) g/dL Lipase (23-300) U/L Procalcitonin ng/mL Influenza A (RT-PCR) (Negative) Influenza B (RT-PCR) (Negative) RSV (RT-PCR) (Negative) SARS-CoV-2 RNA (RT-PCR) (Negative) 10/20/24 10/20/24 Range/Units 09:59 10:05 WBC RBC Hgb Hct MCV MCH MCHC RDW Plt Count MPV Immature Gran % (Auto) Neut % (Auto) Lymph % (Auto) [place] % (Auto) Eos % (Auto) Baso % (Auto) Lymph # (Auto) [place] # (Auto) Eos # (Auto) Baso # (Auto) Abs Immat Gran (auto) Absolute Neuts (auto) Absolute Nucleated RBC Band Neutrophils % Nucleated RBC % 0.0 Platelet Estimate Adequate (Adequate) % Immature Plt Fraction Cancelled Hypochromasia Occasional Macrocytosis Occasional (NORMAL) Schistocytes None seen PT 13.6 (11.1-14.7) Seconds INR 1.0 APTT 23.1 (22.3-36.8) Seconds Sodium 141 (137-145) mmol/L Potassium 4.3 (3.4-5.0) mmol/L Chloride 95 L (98-107) mmol/L Carbon Dioxide Pending Anion Gap Pending BUN 24 H (7-17) mg/dL Creatinine 0.69 L (0.7-1.0) mg/dL Estim Creat Clear Calc 56 ml/min Estimated GFR > 60 (59 - ) Glucose 158 H (65-110) mg/dL Lactic Acid 1.7 (0.7-2.0) mmol/L Calcium 9.7 (8.4-10.2) mg/dL Magnesium 1.7 (1.6-2.3) mg/dL Total Bilirubin 0.6 (0.2-1.3) mg/dL AST 27 (14-36) U/L ALT 17 (6-35) U/L Alkaline Phosphatase 86 (38-126) U/L Troponin I 0.017 (0.000-0.034) ng/mL NT-Pro-B Natriuret Pep 267 H (19.9-100) pg/mL Total Protein 7.0 (6.3-8.2) g/dL Albumin 3.9 (3.5-5.1) g/dL Lipase 270 (23-300) U/L Procalcitonin 0.0 ng/mL Influenza A (RT-PCR) Negative (Negative) Influenza B (RT-PCR) Negative (Negative) RSV (RT-PCR) Negative (Negative) SARS-CoV-2 RNA (RT-PCR) Negative (Negative) ABG Data ABG results: 10/20/24 10:20 Puncture Site Right radial ABG pH 7.327 L ABG pCO2 84.9 H* ABG pO2 181.5 H ABG PO2/FiO2 Ratio 5.67 ABG HCO3 43.5 H ABG O2 Saturation 99.1 ABG O2 Content 19.8 ABG Base Excess 13.3 A-a Gradient < 0.0 Oxyhemoglobin 98.3 Total Hemoglobin 14.1 O2 Delivery Device Nasal cannula O2 Liters/Min 3.0 FiO2 32 Critical Care Time Critical Care Time Critical Care Time: Yes Total Critical Care Time: 35 Discharge Plan Discharge Clinical Impression: Acute exacerbation of chronic obstructive pulmonary disease, Acute hypercapnic respiratory failure Patient Disposition: Still a Patient Condition: Stable Patient Language: Cong[place]ese Prescriptions: No Action ascorbate calcium (vitamin C) 500 mg tablet 500 mg PO DAILY cholecalciferol (vitamin D3) 400 unit capsule 400 unit PO DAILY diphenhydramine-acetaminophen [Tylenol PM Extra Strength] 25-500 mg tablet 1 tablet PO QHS PRN (Reason: Sleep) loperamide [Imodium A-D] 2 mg capsule 2 mg PO HS albuterol sulfate 90 mcg/actuation HFA aerosol inhaler 2 puff inhalation Q4H PRN (Reason: Shortness Of Breath Or Wheezing) Rx Instructions: INHALE 2 PUFFS BY MOUTH EVERY 4 TO 6 HOURS NEEDED FOR SHORTNESS OF BREATH OR WHEEZING Anoro Ellipta 62.5-25 mcg/actuation blister with device 1 inh INHALATION DAILY Qty: 60 5RF simvastatin 40 mg tablet See Rx Instructions .ROUTE .COMPLEX Qty: 90 3RF Dose Instruction: TAKE 1 TABLET DAILY Rx Instructions: TAKE 1 TABLET DAILY levothyroxine 88 mcg tablet See Rx Instructions .ROUTE .COMPLEX Qty: 90 3RF Dose Instruction: TAKE 1 TABLET DAILY Rx Instructions: TAKE 1 TABLET DAILY clopidogrel 75 mg tablet 75 mg PO DAILY Qty: 90 1RF fluoxetine 20 mg capsule See Rx Instructions .ROUTE .COMPLEX Qty: 90 1RF Dose Instruction: TAKE 1 CAPSULE DAILY Rx Instructions: TAKE 1 CAPSULE DAILY Follow-up/Referrals: Weinberg,Leslie T., PSYCHOLOGIST [employer] [Primary Care Provider, Internal Medicine] Time of Disposition: 11:27
[2024-10-20 10:58] LABS: NT Pro B Type Natriuretic Pept 267 pg/mL (19.9-100); Troponin I 0.017 ng/mL (0.000-0.034)
[2024-10-20 10:59] LABS: Hypochromasia Occasional; Macrocytosis Occasional (NORMAL); Schistocytes None Seen
[2024-10-20 11:00] LABS: Influenza A QL RT-PCR Negative (Negative); Influenza B QL RT-PCR Negative (Negative); RSV RNA, RT-PCR Negative (Negative); SARS-CoV-2 RNA PCR Negative (Negative)
[2024-10-20] MEDS: SODIUM CHLORIDE 0.9% IV 1,000 ML 999 ML IV CONT (11:21)
[2024-10-20 11:31] LABS: Carbon Dioxide > 40 mmol/L (22-30)
[2024-10-20] MEDS: cefTRIAXone 1 GM in SODIUM CHLORIDE 0.9% IV 50 ML 100 ML IVPB (13:08)
--- NOTE | 2024-10-20 13:18 | P.HP_ITS ---
H&P: HPI History of Present Illness Date/Time: 10/20/24 13:18 Chief Complaint: Weakness Narrative: 84 y/o F with PMH of COPD, anxiety, depression, hyperlipidemia, CVA, osteopenia, hypothyroidism, lung cancer, CKD, and hypertension presents here with weakness. The patient presents here from home on 10/20 for further evaluation of generalized weakness and possible altered mental status. HPI obtained through chart review, patient report, and family report. The patient reports she has been weaker than usual for the past week. She reports her leg has given out and she had difficulty getting dressed this morning. She has previously been evaluated by her PCP and her basic lab work came back normal. Family however is concerned as they have noted some confusion, however the patient arrived A&O x4. The patient reports she just didn't know what was going on and felt foggy and had worsening falls. She denies any injuries post-fall but did hit her head without loss of consciousness. The patient is additionally reporting a nonproductive cough. She denies fever, chills, body aches, chest pain, weight gain, LE edema, or abdominal pain. At baseline the patient wears 3 L nasal cannula due to her history of chronic respiratory failure, COPD, and lung cancer. She reports the fogginess has improved with BiPAP. Initial VS at presentation: 97.8? F, HR 84, R 24, 163/99, and 100% on 3L NC. Now on BiPAP. ED workup showed: WBC 10.2, no anemia, normal coags, ABG significant for a CO2 of 84.9, creatinine 0.69 and GFR >60, glucose 158, lactic 1.7, initial troponin 0.017, BNP 267 and within normal limits for age, procalcitonin 0, viral PCR negative. CXR showed mild CHF, superimposed infection cannot be excluded. Head CT showed no acute findings and multiple chronic findings. EKG showed sinus r hythm, rate 73, possible left atrial enlargement, RBBB, left anterior fascicular block, LVH with no significant changes compared to prior. Review of Systems Review of Systems: All systems reviewed & are unremarkable except as noted in HPI and below FOR[facility]LY [facility] Past Medical History Medical History (Updated 10/20/24 @ 13:41 by Danielle Hinojosa, ES) Grade I diastolic dysfunction TIA (transient ischemic attack) Pulmonary emphysema COPD (chronic obstructive pulmonary disease) Anxiety and depression Hx of stroke without residual deficits 2001 , status unknown Tubular Vocal cord disease Nodule removed from vocal cord Hyperlipidemia Osteopenia Hypothyroidism Lung cancer CKD (chronic kidney disease) Hypertension Surgical History Surgical History H/O eye surgery Eye lid 2006 H/O: hysterectomy 2000 Hiatal hernia Family History Family History Mother Patient's mother is Hypertension Chronic obstructive pulmonary disease Diabetes mellitus Acute myocardial infarction Father Patient's father is Family history of lymphoma Sibling Carcinoma of colon Chronic obstructive pulmonary disease Diabetes mellitus Son Brain cancer Lung cancer Social History Social History Smoking packs per day: 0.25 Smoking cigarettes per day: 5.0 Years smoked: 50 Smoking pack-years: 12.50 Smoking status: Former smoker Smoking end date: 02/15/14 Alcohol intake: current Drinks per week: 1 Alcohol use details: Pt drinks rarely. Substance use: never Do You Feel Safe in your Home?: Yes Lack of Transportation: No Lack of Food: Never True Current Housing: I Have Housing Concerned About Future Housing: No Difficulty Paying Gas/Electric Bills: No Difficulty Paying for Meds: No Currently Unemployed: No Education: Bachelor's Degree Difficulty w/ Childcare or Family Care: No Spiritual care concerns: No Meds Home Medications and Allergies Home Medications ?Medication ?Instructions ?Recorded ?Confirmed ?Type cholecalciferol (vitamin D3) 10 400 unit PO DAILY 01/1510/20/24 History mcg (400 unit) capsule ascorbate calcium (vitamin C) 500 500 mg PO DAILY 12/1610/20/24 History mg tablet diphenhydramine 25 1 tablet PO QHS PRN Sleep 10/20/24 History mg-acetaminophen 500 mg tablet (Tylenol PM Extra Strength) loperamide 2 mg capsule (Imodium 2 mg PO HS 03/02/23 0 10/20/24 History A-D) umeclidinium 62.5 mcg-vilanterol 1 inh inhalation DAVID Y #60 ea 09/21/23 10/20/24 Rx 25 mcg/actuation powdr for inhalation (Anoro Ellipta) albuterol sulfate 90 mcg/actuation 2 puff inhalation Q 4H PRN 09/30/23 10/20/24 History aerosol inhaler Shortness Of Breath Or Wheez ing levothyroxine 88 mcg tablet See Rx Instructions .Route 02/22/24 10/20/24 Rx .COMPLEX #90 tabs simvastatin 40 mg tablet See Rx Instructions .Route 0 02/22/24 10/20/24 Rx .COMPLEX #90 tabs clopidogrel 75 mg tablet 75 mg PO DAILY #90 tabs 06/1510/20/24 Rx fluoxetine 20 mg capsule See Rx Instructions .Route 0 09/14/24 10/20/24 Rx .COMPLEX #90 caps Allergies Allergy/AdvReac Type Severity Reaction Status Date / Time No Known Allergies Allergy Unknown Verified 10/13/24 11:19 Vital Signs Vital Signs - 24 hr 10/20/24 09:54 10/20/24 10:36 10/20/24 11:00 Temperature 97.8 F Pulse Rate 84 76 73 Respiratory Rate 24 H 28 H 26 H Blood Pressure 163/99 H 183/75 H Pulse Oximetry 100 100 100 Oxygen Delivery Nasal Cannula BiPAP Oxygen Flow Rate 3 10/20/24 11:00 10/20/24 11:45 10/20/24 12:23 Temperature 97.7 F 97.8 F 98.8 F Pulse Rate 75 68 68 Respiratory Rate 26 H 27 H 23 H Blood Pressure 128/76 126/80 125/78 Pulse Oximetry 100 98 98 Oxygen Delivery Oxygen Flow Rate 10/20/24 13:02 Temperature Pulse Rate 78 Respiratory Rate 32 H Blood Pressure Pulse Oximetry 100 Oxygen Delivery BiPAP Oxygen Flow Rate Exam Const: General: comfortable and no acute distress Other: , female, nontoxic appearance HENMT: Face/Nose/Sinus: Normal nares present Mouth: Yes moist mucous membranes Eyes: General: appearance normal, both eyes and all related structures Sclera: sclerae normal Pupils: Equal, round and reactive pupils present EOM: EOMs intact bilaterally Resp: Effort & Inspection: normal respiratory effort Other: Scattered wheezing, no patient will crackles. Tolerating nasal cannula during lunch. Cardio: Rate: regular rate Rhythm: regular rhythm Other: S1-S2 present without murmur, rub, ectopy GI: Other: Abdomen soft, nondistended, nontender. Normoactive bowel sounds in all quadrants. Skin: General skin exam: normal color and no rashes or lesions noted Wounds: no wounds Neuro: Speech: normal speech Motor exam (neuro): 5/5 motor strength present throughout Sensory Exam: normal sensation Other: A&O x4 Extrem: Other: Trace edema to bilateral lower extremities, symmetric Psych: Mental Status: mental status grossly normal Affect: normal affect Other: Fair insight and judgment, very pleasant H&P: Results Labs Labs: Short CBC 10/20/24 10/20/24 10/20/24 Range/Units 09:59 09:59 09:59 WBC Cancelled 10.2 H Hgb Cancelled 13.6 Hct Cancelled Plt Count 10/20/24 10/20/24 Range/Units 09:59 09:59 WBC Hgb Hct 46.7 Plt Count Cancelled 186 BMP 10/20/24 09:59 Sodium 141 Potassium 4.3 Chloride 95 L Carbon Dioxide > 40 H BUN 24 H Creatinine 0.69 L Glucose 158 H Calcium 9.7 Cardiac Enzymes 10/20/24 Range/Units 09:59 Troponin I 0.017 (0.000-0.034) ng/mL Liver Function 10/20/24 Range/Units 09:59 Total Bilirubin 0.6 (0.2-1.3) mg/dL AST 27 (14-36) U/L ALT 17 (6-35) U/L Alkaline Phosphatase 86 (38-126) U/L Albumin 3.9 (3.5-5.1) g/dL Assessment and Plan Assessment and plan (1) Acute hypercapnic respiratory failure: Code(s): J96.02 - Acute respiratory failure with hypercapnia Status: Acute Assessment and Plan: - initial ABG significant for a CO2 of 84.9. Reviewed previous ABGs, patient's CO2 previously 55-60.5. Placed on BiPAP in the ED on 10/20. Plan for repeat ABG later this evening to assess CO2 levels. Continue BiPAP in interim. Tolerating well. - CXR: Mild CHF. Superimposed infection cannot be excluded. Findings can represent pneumonia in appropriate clinical settings. Clinical correlation is recommended. Short-term follow-up chest radiograph is recommended after appropriate clinical therapy to document stability and/or resolution. - reviewed previous echo from 08/30/2024, showed normal systolic function and grade 1 diastolic dysfunction with mild valvular disease. Mild CHF noted on imaging, appears mostly euvolemic on clinical exam, did have some mild peripheral edema. Will give 1 time dose of diuretic and assess response. - monitor neurological status, confusion noted by family however not appreciated upon assessment. Likely secondary to CO2 narcosis, correcting via BiPAP. (2) Pneumonia: Qualifiers: Laterality: unspecified laterality Lung location: unspecified part of lung Pneumonia type: due to unspecified organism Qualified Code(s): J18.9 - Pneumonia, unspecified organism Code(s): J18.9 - Pneumonia, unspecified organism Status: Acute Assessment and Plan: - did not meet SIRS criteria, RR only. Lactic 1.7. Blood cultures were obtained in the ED on 10/20, follow - CXR concerning for superimposed infection - started on CAP tx: Ceftriaxone and azithromycin on 10/20 - check MRSA PCR and sputum culture - Viral PCR negative on 10/20 - supportive care: Mucinex keren, Tessalon Perles p.r.n., DuoNebs keren, Tylenol p.r.n. - currently requiring BiPAP due to CO2 levels, no hypoxia noted on her baseline O2 requirement (3) COPD (chronic obstructive pulmonary disease): Qualifiers: COPD type: COPD with acute exacerbation Qualified Code(s): J44.1 - Chronic obstructive pulmonary disease with (acute) exacerbation Code(s): J44.9 - Chronic obstructive pulmonary disease, unspecified Status: Acute Assessment and Plan: - acute exacerbation of COPD - started on scheduled DuoNebs, broad-spectrum ABX, and steroids - continue home medications (4) Grade I diastolic dysfunction: Code(s): I51.89 - Other ill-defined heart diseases Status: Chronic Assessment and Plan: - BNP 267, WNL for age - most recent echo (08/30/24): Normal systolic function, estimated EF 60 65%, grade 1 diastolic dysfunction, mild valvular disease noted, mild pulmonic regurgitation. See report for full details. - reviewed home medications, not on a daily diuretic. Patient largely a. Euvolemic on exam, did have some a mild peripheral edema that was nonpitting and symmetric. Will give 1 time dose of Lasix and monitor response. - monitor I&Os and daily weights - trend renal function (5) Lung cancer: Qualifiers: Laterality: unspecified laterality Lung location: unspecified part of lung Qualified Code(s): C34.90 - Malignant neoplasm of unspecified part of unspecified bronchus or lung Code(s): C34.90 - Malignant neoplasm of unspecified part of unspecified bronchus or lung Status: Chronic Assessment and Plan: - history of non-small cell lung cancer of the left upper lobe s/p definitive SBRT. Later developed a 2nd non-small cell lung cancer of the left upper lobe separate from her initial tumor a received empiric SBRT. - reviewed most recent follow-up on 06/29/2024 with her oncologist, Elver PIERRE. Patient remains relatively stable from a respiratory standpoint with no clinical or radiographic evidence of disease progression. (6) Hypertension: Qualifiers: Hypertension type: primary hypertension Qualified Code(s): I10 - Essential (primary) hypertension Code(s): I10 - Essential (primary) hypertension Status: Resolved Assessment and Plan: - chronic, currently 141/54 - no longer on antihypertensive medications - monitor (7) Hypothyroidism: Qualifiers: Hypothyroidism type: acquired Qualified Code(s): E03.9 - Hypothyroidism, unspecified Code(s): E03.9 - Hypothyroidism, unspecified Status: Chronic Assessment and Plan: - review previous lab work, TSH 1.71 on 10/13/2024 - continue Synthroid Plan Diet: Heart healthy GI Prophylaxis: N/a DVT Prophylaxis: Lovenox SQ IV fluids: 1L bolus Lines/Tubes: Peripheral IV Code Status: Full code Quality VTE Prophylaxis VTE prophylaxis: pharmacologic ordered Hospitalist [facility] Advance Care Plan I have confirmed that the patient's Advanced Care Plan is present, code status is documented, or surrogate decision maker is listed in patient medical record.: Yes Medication Reconciliation I have utilized all available resources to obtain, update and review the patients current medications (includes all prescriptions, OTC, herbals, cannabis, and nutritional supplements).: Yes
--- NOTE | 2024-10-20 13:25 | ADMGEN ---
This patient, Sylvia Randall, was admitted to IMU Room 200-01. Patient/family oriented to hospital policies and general routines including ID bracelet, bed and alarms, visiting hours, pain management, procedures, bathroom and other care routines, personal items, smoking policy, room service/diet, and visiting hours. Information on how to activate the Rapid Response Team has been discussed. Patient/Family are encouraged to report perceived risks to care and to ask questions if they do not understand what they are told or what they should do.
[2024-10-20 13:26] LABS: Troponin I 0.015 ng/mL (0.000-0.034)
[2024-10-20] MEDS: AZITHROMYCIN IV 500 MG in SODIUM CHLORIDE 0.9% IV 250 ML IVPB (13:57)
[2024-10-20] MEDS: SIMVASTATIN 20 MG TABLET 40 MG PO (14:17)
[2024-10-20] MEDS: ENOXAPARIN 40 MG/0.4 ML SYRINGE SUB-Q (14:17)
[2024-10-20 16:01] LABS: MRSA (PCR) NOT DETECTED (NOT DETECTE)
[2024-10-20 17:15] LABS: Alveolar/Arterial O2 Gradient 183.8 mmHg; HCO3 ABG 38.3 mEq/l (22.0-26.0); Oxygen Content ABG 18.6 %vol (16.0-22.0); Oxygen Saturation ABG 95.3 % (95.0-100.0); PO2 ABG 86.4 mmHg (80.0-100.0); PO2 FiO2 Ratio Arterial Blood 1.73 %
[2024-10-20 17:17] LABS: Fractional Inspired Oxygen 32 %; Liters per Minute 3.0 LPM; Modified Allen's Test Pass; PCO2 ABG 76.7 mmHg (35.0-45.0); Site Drawn RIGHT RADIAL
[2024-10-20] MEDS: FUROSEMIDE INJ 40 MG/4 ML VIAL IV PUSH (17:54)
[2024-10-20] MEDS: IPRATROPIUM 0.5 MG/ALBUTEROL SULFATE 2.5 MG AMPUL.NEB 3 ML INHALATION (20:11)
[2024-10-20] MEDS: guaiFENesin 12 HR 600 MG TABCR PO (21:15)
[2024-10-21] VITALS (28 sets, daily range): BP systolic 145–168; BP diastolic 54–92; PULSE 70–112; RESP 16–30; TEMP 36.4–36.9; O2SAT 89–97
[2024-10-21] MEDS: IPRATROPIUM 0.5 MG/ALBUTEROL SULFATE 2.5 MG AMPUL.NEB 3 ML INHALATION ×5 (02:19→20:19)
[2024-10-21 04:07] LABS: Hematocrit 43.3 % (37.0-47.0); Hemoglobin 13.0 g/dL (12.0-15.0); Immature Granulocyte Percent A 0.2 % (0-0.5); Lymphocytes Absolute Auto 0.76 K/mm3 (0.9-3.2); Mean Corpuscular HGB Conc 30.0 g/dl (32-36); Mean Corpuscular Hemoglobin 32.3 pg (26-34); Mean Corpuscular Volume 107.7 fl (80-100); Nucleated Red Blood Cells Absolute Auto 0.000 K/mm3 (0.0-0.012); Nucleated Red Blood Cells Perc 0.0 % (0.0-0.2); Platelet Count Result 181 k/mm3 (150-375); Red Blood Count 4.02 M/mm3 (4.2-5.4); White Blood Count 6.3 K/mm3 (4.5-10.0)
[2024-10-21 04:26] LABS: Alanine Aminotransferase 21 U/L (6-35); Albumin Level 3.7 g/dL (3.5-5.1); Alkaline Phosphatase 85 U/L (38-126); Aspartate Amino Transferase 28 U/L (14-36); Bilirubin,Total 0.4 mg/dL (0.2-1.3); Blood Urea Nitrogen 25 mg/dL (7-17); Calcium 9.3 mg/dL (8.4-10.2); Chloride 94 mmol/L (98-107); Estimated CRCL calculation 54 ml/min; Estimated Glomerular Filt Rate > 60; Glucose 174 mg/dL (65-110); Potassium 4.3 mmol/L (3.4-5.0); Sodium 139 mmol/L (137-145); Total Protein 6.6 g/dL (6.3-8.2)
[2024-10-21 04:41] LABS: Macrocytosis 1+ (NORMAL); Schistocytes None Seen
[2024-10-21 04:42] LABS: Carbon Dioxide > 40 mmol/L (22-30); Stomatocytes 1+
[2024-10-21 05:39] LABS: Alveolar/Arterial O2 Gradient 74.8 mmHg; Fractional Inspired Oxygen 28 %; HCO3 ABG 38.3 mEq/l (22.0-26.0); Oxygen Content ABG 17.4 %vol (16.0-22.0); Oxygen Saturation ABG 92.3 % (95.0-100.0); PCO2 ABG 54.1 mmHg (35.0-45.0); PO2 ABG 61.0 mmHg (80.0-100.0); PO2 FiO2 Ratio Arterial Blood 2.18 %
[2024-10-21 05:44] LABS: Modified Allen's Test Pass; Site Drawn RIGHT RADIAL
[2024-10-21 05:45] LABS: Non-Invasive Expiratory Pressure 8 CMH2O; Non-Invasive Inspiratory Pressure 14 CMH2O; Non-Invasive Vent Rate 15 /MIN
[2024-10-21] MEDS: LEVOTHYROXINE SODIUM 88 MCG TABLET PO (06:31)
[2024-10-21 06:35] LABS: Add Urine Microscopic? YES; Appearance Urine Clear (Clear); Glucose Urine UA Trace mg/dL (Negative); Leukocyte Esterase Ur 2+ LEU/UL (Negative); Nitrate Urine Positive (Negative); Non Pathogenic Casts 0-2; Specific Grav Ur 1.012 (1.001-1.035)
[2024-10-21] MEDS: ASCORBIC ACID 500 MG TABLET PO (08:44)
[2024-10-21] MEDS: SIMVASTATIN 20 MG TABLET 40 MG PO (08:44)
[2024-10-21] MEDS: AZITHROMYCIN IV 500 MG in SODIUM CHLORIDE 0.9% IV 250 ML IVPB (08:44)
[2024-10-21] MEDS: guaiFENesin 12 HR 600 MG TABCR PO ×2 (08:44→20:38)
[2024-10-21] MEDS: CHOLECALCIFEROL (VITAMIN D3) 10 MCG (400 UNITS) TABLET PO (08:44)
[2024-10-21] MEDS: CLOPIDOGREL BISULFATE 75 MG TABLET PO (08:44)
[2024-10-21] MEDS: cefTRIAXone 1 GM in SODIUM CHLORIDE 0.9% IV 50 ML 100 ML IVPB (08:59)
[2024-10-21] MEDS: ENOXAPARIN 40 MG/0.4 ML SYRINGE SUB-Q (12:25)
[2024-10-21] MEDS: UMECLIDINIUM/VILANTEROL 62.5-25 MCG ELLIPTA 1 PUFF INHALATION (13:25)
--- NOTE | 2024-10-21 13:44 | PM.IMPN ---
Progress Note: A&P Assessment and Plan (1) Acute hypercapnic respiratory failure: Code(s): J96.02 - Acute respiratory failure with hypercapnia Status: Acute Assessment and Plan: - initial ABG significant for a CO2 of 84.9. Reviewed previous ABGs, patient's CO2 previously 55-60.5. Placed on BiPAP in the ED on 10/20. Repeat ABG with improvement. Continue BiPAP in interim. Tolerating well. She did not use her CPAP at night for past few days. Will try to switch her back to CPAP at night. - CXR: Mild CHF. Superimposed infection cannot be excluded. Findings can represent pneumonia in appropriate clinical settings. Clinical correlation is recommended. Short-term follow-up chest radiograph is recommended after appropriate clinical therapy to document stability and/or resolution. - reviewed previous echo from 08/30/2024, showed normal systolic function and grade 1 diastolic dysfunction with mild valvular disease. Mild CHF noted on imaging, appears mostly euvolemic on clinical exam, did have some mild peripheral edema. IV Lasix received - monitor neurological status, confusion noted by family however not appreciated upon assessment. Likely secondary to CO2 narcosis, correcting via BiPAP. (2) Pneumonia: Qualifiers: Pneumonia type: due to unspecified organism Laterality: unspecified laterality Lung location: unspecified part of lung Qualified Code(s): J18.9 - Pneumonia, unspecified organism Code(s): J18.9 - Pneumonia, unspecified organism Status: Acute Assessment and Plan: - did not meet SIRS criteria, RR only. Lactic 1.7. Blood cultures were obtained in the ED on 10/20, follow - CXR concerning for superimposed infection - started on CAP tx: Ceftriaxone and azithromycin on 10/20 -nasal MRSA PCR negative and sputum culture pending - Viral PCR negative on 10/20 - supportive care: Mucinex keren, Tessalon Perles p.r.n., DuoNebs keren, Tylenol p.r.n. - currently requiring BiPAP due to CO2 levels, no hypoxia noted on her baseline O2 requirement Continue IV antibiotics as ordered (3) COPD (chronic obstructive pulmonary disease): Qualifiers: COPD type: COPD with acute exacerbation Qualified Code(s): J44.1 - Chronic obstructive pulmonary disease with (acute) exacerbation Code(s): J44.9 - Chronic obstructive pulmonary disease, unspecified Status: Acute Assessment and Plan: - acute exacerbation of COPD - started on scheduled DuoNebs, broad-spectrum ABX, and steroids - continue home medications Will switch to oral prednisone (4) Grade I diastolic dysfunction: Code(s): I51.89 - Other ill-defined heart diseases Status: Chronic Assessment and Plan: - BNP 267, WNL for age - most recent echo (08/30/24): Normal systolic function, estimated EF 60 65%, grade 1 diastolic dysfunction, mild valvular disease noted, mild pulmonic regurgitation. See report for full details. - reviewed home medications, not on a daily diuretic. Patient largely a. Euvolemic on exam, did have some a mild peripheral edema that was nonpitting and symmetric. Will give 1 time dose of Lasix and monitor response. - monitor I&Os and daily weights - trend renal function (5) Lung cancer: Qualifiers: Laterality: unspecified laterality Lung location: unspecified part of lung Qualified Code(s): C34.90 - Malignant neoplasm of unspecified part of unspecified bronchus or lung Code(s): C34.90 - Malignant neoplasm of unspecified part of unspecified bronchus or lung Status: Chronic Assessment and Plan: - history of non-small cell lung cancer of the left upper lobe s/p definitive SBRT. Later developed a 2nd non-small cell lung cancer of the left upper lobe separate from her initial tumor a received empiric SBRT. - reviewed most recent follow-up on 06/29/2024 with her oncologist, Elver PIERRE. Patient remains relatively stable from a respiratory standpoint with no clinical or radiographic evidence of disease progression. (6) Hypertension: Qualifiers: Hypertension type: primary hypertension Qualified Code(s): I10 - Essential (primary) hypertension Code(s): I10 - Essential (primary) hypertension Status: Resolved Assessment and Plan: - no longer on antihypertensive medications - monitor (7) Hypothyroidism: Qualifiers: Hypothyroidism type: acquired Qualified Code(s): E03.9 - Hypothyroidism, unspecified Code(s): E03.9 - Hypothyroidism, unspecified Status: Chronic Assessment and Plan: - review previous lab work, TSH 1.71 on 10/13/2024 - continue Synthroid Plan Diet: Heart healthy GI Prophylaxis: N/a DVT Prophylaxis: Lovenox SQ IV fluids: 1L bolus Lines/Tubes: Peripheral IV Code Status: Full code Subjective Date/time seen: 10/21/24 13:44 Interval history: No overnight events. Gets confused off and on. Has been having some cough recently. Had not used her CPAP at home. No chest pain. Review of Systems Review of Systems: All systems reviewed & are unremarkable except as noted in HPI and below Exam Narrative: GENERAL: Well-appearing, well-nourished, and in no acute distress. HEAD: Normocephalic, atraumatic. EYES: PERRLA and EOMI. ENT: Nares clear, no rhinorrhea or epistaxis. Mucous membranes moist. NECK: Supple. CHEST: Mild end expiratory wheezes noted, No respiratory distress. HEART: Regular rate and rhythm. No murmur heard. Normal peripheral pulses. ABDOMEN: Soft, nontender, nondistended, normal active bowel sounds. EXTREMITIES: Normal range of motion. No edema. SKIN: Warm, dry, no rash. NEURO: No focal deficits. Alert and oriented x3. PSYCH: Normal mood and affect. Objective Data Vital Signs Vital Signs: Vital Signs - 24 hr 10/20/24 13:47 10/20/24 14:00 10/20/24 14:27 Temperature Pulse Rate 93 93 Respiratory Rate 16 Blood Pressure Pulse Oximetry 94 Oxygen Delivery BiPAP Nasal Cannula Oxygen Flow Rate 3 Fraction of Inspired Oxygen 10/20/24 15:57 10/20/24 16:00 10/20/24 16:00 Temperature 97.6 F Pulse Rate 87 84 Respiratory Rate 29 H 25 H Blood Pressure 154/101 H Pulse Oximetry 99 96 Oxygen Delivery BiPAP BiPAP Oxygen Flow Rate Fraction of Inspired Oxygen 10/20/24 16:00 10/20/24 17:27 10/20/24 19:49 Temperature Pulse Rate 85 90 91 Respiratory Rate 22 H Blood Pressure Pulse Oximetry 96 Oxygen Delivery BiPAP Oxygen Flow Rate Fraction of Inspired Oxygen 10/20/24 19:50 10/20/24 20:00 10/20/24 20:10 Temperature 98.4 F Pulse Rate 91 92 86 Respiratory Rate 30 H 25 H Blood Pressure 166/73 H Pulse Oximetry 98 95 Oxygen Delivery BiPAP Oxygen Flow Rate Fraction of Inspired Oxygen 10/20/24 20:20 10/20/24 20:22 10/20/24 20:27 Temperature Pulse Rate 86 88 Respiratory Rate 25 H 25 H Blood Pressure Pulse Oximetry 95 Oxygen Delivery BiPAP Oxygen Flow Rate Fraction of Inspired Oxygen 32 10/21/24 00:00 10/21/24 00:00 10/21/24 00:00 Temperature 98.4 F Pulse Rate 91 75 70 Respiratory Rate 30 H 24 H Blood Pressure 168/92 H Pulse Oximetry 96 96 Oxygen Delivery BiPAP Oxygen Flow Rate Fraction of Inspired Oxygen 10/21/24 00:10 10/21/24 02:00 10/21/24 02:20 Temperature Pulse Rate 80 80 73 Respiratory Rate 28 H 26 H Blood Pressure Pulse Oximetry 95 Oxygen Delivery BiPAP Oxygen Flow Rate Fraction of Inspired Oxygen 10/21/24 02:25 10/21/24 03:38 10/21/24 03:44 Temperature Pulse Rate 74 73 86 Respiratory Rate 26 H 26 H Blood Pressure Pulse Oximetry 95 Oxygen Delivery BiPAP Oxygen Flow Rate Fraction of Inspired Oxygen 32 10/21/24 04:00 10/21/24 04:11 10/21/24 08:00 Temperature 98.3 F 98.2 F Pulse Rate 91 77 90 Respiratory Rate 27 H 26 H 18 Blood Pressure 145/55 H 161/64 H Pulse Oximetry 97 97 97 Oxygen Delivery BiPAP Oxygen Flow Rate Fraction of Inspired Oxygen 10/21/24 08:00 10/21/24 08:00 10/21/24 08:37 Temperature Pulse Rate 94 97 Respiratory Rate 18 Blood Pressure Pulse Oximetry 95 Oxygen Delivery Nasal Cannula Oxygen Flow Rate 3 Fraction of Inspired Oxygen 10/21/24 08:41 10/21/24 08:43 10/21/24 10:00 Temperature Pulse Rate 90 97 Respiratory Rate 18 Blood Pressure Pulse Oximetry 92 Oxygen Delivery Nasal Cannula Oxygen Flow Rate 3 Fraction of Inspired Oxygen 10/21/24 12:00 10/21/24 13:25 10/21/24 13:34 Temperature 97.5 F L Pulse Rate 99 96 98 Respiratory Rate 16 20 20 Blood Pressure 167/54 H Pulse Oximetry 90 Oxygen Delivery Oxygen Flow Rate Fraction of Inspired Oxygen Intake/Output Intake/Output: Intake & Output 10/18/24 10/19/24 10/20/24 10/21/24 23:59 23:59 23:59 23:59 Intake Total 1540 880 Output Total 250 600 Balance 1290 280 Meds/Results Medications: Active Medications Generic Name Dose Route Start Last Admin Trade Name Freq PRN Reason Stop Dose Admin Acetaminophen 500 mg 10/20/24 13:51 Acetaminophen 500 Mg Tablet PO QHS PRN Sleep Albuterol/Ipratropium 3 ml 10/20/24 14:00 10/21/24 13:25 Ipratropium 0.5 Mg/Albuterol Sulfate 2.5 Mg Ampul.Neb 3 Ml INHALATION 3 ml Q6HRT KEREN Administration Ascorbic Acid 500 mg 10/21/24 09:00 10/21/24 08:44 Ascorbic Acid 500 Mg Tablet PO 500 mg DAILY KEREN Administration Benzonatate 100 mg 10/20/24 13:38 Benzonatate 100 Mg Capsule PO TID PRN Cough Clopidogrel Bisulfate 75 mg 10/21/24 09:00 10/21/24 08:44 Clopidogrel Bisulfate 75 Mg Tablet PO 75 mg DAILY KEREN Administration Diphenhydramine HCl 25 mg 10/20/24 13:40 Diphenhydramine Hcl Cap 25 Mg Capsule PO QHS PRN Sleep Enoxaparin Sodium 40 mg 10/20/24 13:50 10/21/24 12:25 Enoxaparin 40 Mg/0.4 Ml Syringe SUB-Q 40 mg DAILY KEREN Administration Fluoxetine HCl 20 mg 10/20/24 09:00 10/21/24 08:44 Fluoxetine Hcl 20 Mg Capsule PO 20 mg QAM KEREN Administration Guaifenesin 600 mg 10/20/24 21:00 10/21/24 08:44 Guaifenesin 12 Hr 600 Mg Tabcr PO 600 mg Q12HR KEREN Administration Ceftriaxone Sodium 1 gm/ 50 mls @ 100 mls/hr 10/20/24 11:25 10/21/24 08:59 Sodium Chloride IVPB 100 mls/hr QAM KEREN Administration Azithromycin 500 mg/ Sodium 250 mls @ 250 mls/hr 10/20/24 11:25 10/21/24 08:44 Chloride IVPB 10/24/24 09:59 250 mls/hr QAM KEREN Administration Levothyroxine Sodium 88 mcg 10/21/24 06:30 10/21/24 06:31 Levothyroxine Sodium 88 Mcg Tablet PO 88 mcg DAILY@0630 KEREN Administration Loperamide HCl 2 mg 10/20/24 13:40 Loperamide Hcl 2 Mg Capsule PO HS PRN Diarrhea Methylprednisolone Sodium Succinate 60 mg 10/20/24 22:00 10/21/24 06:31 Methylprednisolone Sod Succ 125 Mg Vial IV PUSH 60 mg Q8HR KEREN Administration Simvastatin 40 mg 10/20/24 13:40 10/21/24 08:44 Simvastatin 20 Mg Tablet PO 40 mg QAM KEREN Administration Umeclidinium/Vilanterol 1 puff 10/21/24 08:00 10/21/24 13:25 Umeclidinium/Vilanterol 62.5-25 Mcg Ellipta INHALATION 1 puff DAILYRT KEREN Administration Vitamin D 10 mcg 10/21/24 09:00 10/21/24 08:44 Cholecalciferol (Vitamin D3) 10 Mcg (400 Units) Tablet PO 10 mcg DAILY KEREN Administration Radiology Results: ITS Impressions Chest X-Ray 10/20/24 10:15 IMPRESSION: Mild CHF. Superimposed infection cannot be excluded. Findings can represent pneumonia in appropriate clinical settings. Clinical correlation is recommended. Short-term follow-up chest radiograph is recommended after appropriate clinical therapy to document stability and/or resolution. Head CT 10/20/24 11:04 IMPRESSION: 1. No evidence for acute intracranial hemorrhage or calvarial fracture. 2. Multiple chronic findings, as above. Labs Labs: Laboratory Results - last 24 hr 10/20/24 10/20/24 10/20/24 14:43 15:37 17:08 WBC RBC Hgb Hct MCV MCH MCHC RDW Plt Count MPV Immature Gran % (Auto) Neut % (Auto) Lymph % (Auto) [place] % (Auto) Eos % (Auto) Baso % (Auto) Lymph # (Auto) [place] # (Auto) Eos # (Auto) Baso # (Auto) Abs Immat Gran (auto) Absolute Neuts (auto) Absolute Nucleated RBC Band Neutrophils % Nucleated RBC % Platelet Estimate Macrocytosis Stomatocytes Schistocytes Puncture Site Right radial ABG pH 7.316 L ABG pCO2 76.7 H* ABG pO2 86.4 ABG PO2/FiO2 Ratio 1.73 ABG HCO3 38.3 H ABG O2 Saturation 95.3 ABG O2 Content 18.6 ABG Base Excess 9.0 A-a Gradient 183.8 Oxyhemoglobin 95.5 Total Hemoglobin 13.8 O2 Delivery Device Non-invasive vent O2 Liters/Min 3.0 Vent Rate FiO2 32 Expiratory Pressure Inspiratory Pressure Sodium Potassium Chloride Carbon Dioxide Anion Gap BUN Creatinine Estim Creat Clear Calc Estimated GFR Glucose POC Capillary Glucose 234 H Calcium Total Bilirubin AST ALT Alkaline Phosphatase Total Protein Albumin Urine Color Urine Appearance Urine pH Ur Specific [place] Urine Protein Urine Glucose (UA) Urine Ketones Ur Blood (Man) Urine Nitrate Urine Bilirubin Urine Urobilinogen Leukocyte Esterase Rfl Urine RBC Urine WBC Ur Squamous Epith Cells Urine Bacteria Urine Casts Nasal MRSA (PCR) Not detected 10/21/24 10/21/24 10/21/24 03:32 05:26 06:23 WBC 6.3 RBC 4.02 L Hgb 13.0 Hct 43.3 MCV 107.7 H MCH 32.3 MCHC 30.0 L RDW 11.9 Plt Count 181 MPV 10.8 H Immature Gran % (Auto) 0.2 Neut % (Auto) 86.5 H Lymph % (Auto) 12.0 L [place] % (Auto) 1.3 L Eos % (Auto) 0.0 Baso % (Auto) 0.0 L Lymph # (Auto) 0.76 L [place] # (Auto) 0.1 Eos # (Auto) 0.0 Baso # (Auto) 0.0 Abs Immat Gran (auto) 0.01 Absolute Neuts (auto) 5.5 Absolute Nucleated RBC 0.000 Band Neutrophils % Not Reportable Nucleated RBC % 0.0 Platelet Estimate Adequate Macrocytosis 1+ Stomatocytes 1+ Schistocytes None seen Puncture Site Right radial ABG pH 7.468 H ABG pCO2 54.1 H ABG pO2 61.0 L ABG PO2/FiO2 Ratio 2.18 ABG HCO3 38.3 H ABG O2 Saturation 92.3 L ABG O2 Content 17.4 ABG Base Excess 12.4 A-a Gradient 74.8 Oxyhemoglobin 91.9 Total Hemoglobin 13.5 O2 Delivery Device Non-invasive vent O2 Liters/Min Not Reportable Vent Rate 15 FiO2 28 Expiratory Pressure 8 Inspiratory Pressure 14 Sodium 139 Potassium 4.3 Chloride 94 L Carbon Dioxide > 40 H Anion Gap BUN 25 H Creatinine 0.74 Estim Creat Clear Calc 54 Estimated GFR > 60 Glucose 174 H POC Capillary Glucose Calcium 9.3 Total Bilirubin 0.4 AST 28 ALT 21 Alkaline Phosphatase 85 Total Protein 6.6 Albumin 3.7 Urine Color Yellow Urine Appearance Clear Urine pH 5.5 Ur Specific [place] 1.012 Urine Protein Negative Urine Glucose (UA) Trace H Urine Ketones Negative Ur Blood (Man) Negative Urine Nitrate Positive H Urine Bilirubin Negative Urine Urobilinogen 0.2 Leukocyte Esterase Rfl 2+ H Urine RBC 0-2 Urine WBC 21-50 H Ur Squamous Epith Cells None seen Urine Bacteria Rare Urine Casts 0-2 Nasal MRSA (PCR)
--- NOTE | 2024-10-21 16:17 | PC.NURSE ---
On 10/21/24, the student, Xander Mondragon, provided care and completed [facility] documentation on this patient. I have reviewed the student's documentation and agree with the findings.
[2024-10-21] MEDS: ACETAMINOPHEN 500 MG TABLET PO (20:38)
[2024-10-21] MEDS: diphenhydrAMINE HCl CAP 25 MG CAPSULE PO (20:38)
[2024-10-22] VITALS (31 sets, daily range): BP systolic 121–175; BP diastolic 56–80; PULSE 64–118; RESP 18–27; TEMP 36.6–37; O2SAT 91–96
[2024-10-22] MEDS: IPRATROPIUM 0.5 MG/ALBUTEROL SULFATE 2.5 MG AMPUL.NEB 3 ML INHALATION ×4 (02:56→20:33)
[2024-10-22 03:48] LABS: Hematocrit 38.3 % (37.0-47.0); Hemoglobin 12.1 g/dL (12.0-15.0); Immature Granulocyte Percent A 0.4 % (0-0.5); Lymphocytes Absolute Auto 1.25 K/mm3 (0.9-3.2); Mean Corpuscular HGB Conc 31.6 g/dl (32-36); Mean Corpuscular Hemoglobin 32.8 pg (26-34); Mean Corpuscular Volume 103.8 fl (80-100); Nucleated Red Blood Cells Absolute Auto 0.000 K/mm3 (0.0-0.012); Nucleated Red Blood Cells Perc 0.0 % (0.0-0.2); Platelet Count Result 170 k/mm3 (150-375); Red Blood Count 3.69 M/mm3 (4.2-5.4); White Blood Count 11.4 K/mm3 (4.5-10.0)
[2024-10-22 04:16] LABS: Alanine Aminotransferase 18 U/L (6-35); Albumin Level 3.4 g/dL (3.5-5.1); Alkaline Phosphatase 75 U/L (38-126); Aspartate Amino Transferase 29 U/L (14-36); Bilirubin,Total 0.4 mg/dL (0.2-1.3); Blood Urea Nitrogen 36 mg/dL (7-17); Calcium 9.4 mg/dL (8.4-10.2); Carbon Dioxide > 40 mmol/L (22-30); Chloride 95 mmol/L (98-107); Estimated CRCL calculation 48 ml/min; Estimated Glomerular Filt Rate > 60; Glucose 136 mg/dL (65-110); Magnesium 1.7 mg/dL (1.6-2.3); Potassium 3.8 mmol/L (3.4-5.0); Sodium 140 mmol/L (137-145); Total Protein 6.1 g/dL (6.3-8.2)
[2024-10-22] MEDS: LEVOTHYROXINE SODIUM 88 MCG TABLET PO (06:30)
[2024-10-22] MEDS: ASCORBIC ACID 500 MG TABLET PO (09:22)
[2024-10-22] MEDS: guaiFENesin 12 HR 600 MG TABCR PO ×2 (09:22→20:11)
[2024-10-22] MEDS: CHOLECALCIFEROL (VITAMIN D3) 10 MCG (400 UNITS) TABLET PO (09:23)
[2024-10-22] MEDS: SIMVASTATIN 20 MG TABLET 40 MG PO (09:24)
[2024-10-22] MEDS: CLOPIDOGREL BISULFATE 75 MG TABLET PO (09:24)
[2024-10-22] MEDS: AZITHROMYCIN IV 500 MG in SODIUM CHLORIDE 0.9% IV 250 ML IVPB (09:25)
[2024-10-22] MEDS: ENOXAPARIN 40 MG/0.4 ML SYRINGE SUB-Q (09:29)
[2024-10-22] MEDS: cefTRIAXone 1 GM in SODIUM CHLORIDE 0.9% IV 50 ML 100 ML IVPB (09:29)
--- NOTE | 2024-10-22 11:59 | P.PNIM_ITS ---
Progress Note: A&P Assessment and Plan (1) Acute hypercapnic respiratory failure: Code(s): J96.02 - Acute respiratory failure with hypercapnia Status: Acute Assessment and Plan: - initial ABG significant for a CO2 of 84.9. Reviewed previous ABGs, patient's CO2 previously 55-60.5. Placed on BiPAP in the ED on 10/20. Repeat ABG with improvement. Continue BiPAP in interim. Tolerating well. She did not use her CPAP at night for past few days. Will try to switch her back to CPAP at night. - CXR: Mild CHF. Superimposed infection cannot be excluded. Findings can represent pneumonia in appropriate clinical settings. Clinical correlation is recommended. Short-term follow-up chest radiograph is recommended after appropriate clinical therapy to document stability and/or resolution. - reviewed previous echo from 08/30/2024, showed normal systolic function and grade 1 diastolic dysfunction with mild valvular disease. Mild CHF noted on imaging, appears mostly euvolemic on clinical exam, did have some mild peripheral edema. IV Lasix received - monitor neurological status, confusion noted by family however not appreciated upon assessment. Likely secondary to CO2 narcosis, correcting via BiPAP. Advised to get her CPAP here and will use that tonight. Repeat ABG on CPAP (2) Pneumonia: Qualifiers: Pneumonia type: due to unspecified organism Laterality: unspecified laterality Lung location: unspecified part of lung Qualified Code(s): J18.9 - Pneumonia, unspecified organism Code(s): J18.9 - Pneumonia, unspecified organism Status: Acute Assessment and Plan: - did not meet SIRS criteria, RR only. Lactic 1.7. Blood cultures were obtained in the ED on 10/20, follow - CXR concerning for superimposed infection - started on CAP tx: Ceftriaxone and azithromycin on 10/20 -nasal MRSA PCR negative and sputum culture pending - Viral PCR negative on 10/20 - supportive care: Mucinex keren, Tessalon Perles p.r.n., DuoNebs keren, Tylenol p.r.n. - currently requiring BiPAP due to CO2 levels, no hypoxia noted on her baseline O2 requirement Continue IV antibiotics as ordered (3) COPD (chronic obstructive pulmonary disease): Qualifiers: COPD type: COPD with acute exacerbation Qualified Code(s): J44.1 - Chronic obstructive pulmonary disease with (acute) exacerbation Code(s): J44.9 - Chronic obstructive pulmonary disease, unspecified Status: Acute Assessment and Plan: - acute exacerbation of COPD - started on scheduled DuoNebs, broad-spectrum ABX, and steroids - continue home medications Started on oral prednisone which will be continued (4) Grade I diastolic dysfunction: Code(s): I51.89 - Other ill-defined heart diseases Status: Chronic Assessment and Plan: - BNP 267, WNL for age - most recent echo (08/30/24): Normal systolic function, estimated EF 60 65%, grade 1 diastolic dysfunction, mild valvular disease noted, mild pulmonic regurgitation. See report for full details. - reviewed home medications, not on a daily diuretic. Patient largely a. Euvolemic on exam, did have some a mild peripheral edema that was nonpitting and symmetric. Will give 1 time dose of Lasix and monitor response. - monitor I&Os and daily weights - trend renal function (5) Lung cancer: Qualifiers: Laterality: unspecified laterality Lung location: unspecified part of lung Qualified Code(s): C34.90 - Malignant neoplasm of unspecified part of unspecified bronchus or lung Code(s): C34.90 - Malignant neoplasm of unspecified part of unspecified bronchus or lung Status: Chronic Assessment and Plan: - history of non-small cell lung cancer of the left upper lobe s/p definitive SBRT. Later developed a 2nd non-small cell lung cancer of the left upper lobe separate from her initial tumor a received empiric SBRT. - reviewed most recent follow-up on 06/29/2024 with her oncologist, Elver PIERRE. Patient remains relatively stable from a respiratory standpoint with no clinical or radiographic evidence of disease progression. (6) Hypertension: Qualifiers: Hypertension type: primary hypertension Qualified Code(s): I10 - Essential (primary) hypertension Code(s): I10 - Essential (primary) hypertension Status: Resolved Assessment and Plan: - no longer on antihypertensive medications - monitor (7) Hypothyroidism: Qualifiers: Hypothyroidism type: acquired Qualified Code(s): E03.9 - Hypothyroidism, unspecified Code(s): E03.9 - Hypothyroidism, unspecified Status: Chronic Assessment and Plan: - review previous lab work, TSH 1.71 on 10/13/2024 - continue Synthroid Plan Diet: Heart healthy GI Prophylaxis: N/a DVT Prophylaxis: Lovenox SQ IV fluids: 1L bolus Lines/Tubes: Peripheral IV Code Status: Full code Subjective Date/time seen: 10/22/24 11:59 Interval history: No overnight events. Used BiPAP last night. Breathing is better. She is more clearer. Review of Systems Review of Systems: All systems reviewed & are unremarkable except as noted in HPI and below Exam Narrative: GENERAL: Well-appearing, well-nourished, and in no acute distress. HEAD: Normocephalic, atraumatic. EYES: PERRLA and EOMI. ENT: Nares clear, no rhinorrhea or epistaxis. Mucous membranes moist. NECK: Supple. CHEST: Mild end expiratory wheezes noted, No respiratory distress. HEART: Regular rate and rhythm. No murmur heard. Normal peripheral pulses. ABDOMEN: Soft, nontender, nondistended, normal active bowel sounds. EXTREMITIES: Normal range of motion. No edema. SKIN: Warm, dry, no rash. NEURO: No focal deficits. Alert and oriented x3. PSYCH: Normal mood and affect. Objective Data Vital Signs Vital Signs: Vital Signs - 24 hr 10/21/24 12:00 10/21/24 12:00 10/21/24 12:00 Temperature 97.5 F L Pulse Rate 99 110 H Respiratory Rate 16 Blood Pressure 167/54 H Pulse Oximetry 90 95 Oxygen Delivery Nasal Cannula Oxygen Flow Rate 3 Fraction of Inspired Oxygen 10/21/24 13:25 10/21/24 13:34 10/21/24 14:00 Temperature Pulse Rate 96 98 112 H Respiratory Rate 20 20 Blood Pressure Pulse Oximetry Oxygen Delivery Oxygen Flow Rate Fraction of Inspired Oxygen 10/21/24 16:00 10/21/24 16:00 10/21/24 16:00 Temperature 97.8 F Pulse Rate 95 96 Respiratory Rate 18 Blood Pressure 150/65 H Pulse Oximetry 91 91 Oxygen Delivery BiPAP Oxygen Flow Rate Fraction of Inspired Oxygen 10/21/24 18:00 10/21/24 19:41 10/21/24 20:00 Temperature 98.1 F Pulse Rate 73 90 72 Respiratory Rate 24 H Blood Pressure 166/86 H Pulse Oximetry 89 L Oxygen Delivery Oxygen Flow Rate Fraction of Inspired Oxygen 10/21/24 20:10 10/21/24 20:19 10/21/24 20:24 Temperature Pulse Rate 90 89 89 Respiratory Rate 24 H 20 20 Blood Pressure Pulse Oximetry 89 L Oxygen Delivery BiPAP Oxygen Flow Rate Fraction of Inspired Oxygen 28 10/21/24 21:54 10/21/24 21:56 10/21/24 22:00 Temperature Pulse Rate 84 87 Respiratory Rate 26 H Blood Pressure Pulse Oximetry 90 90 Oxygen Delivery BiPAP BiPAP Oxygen Flow Rate Fraction of Inspired Oxygen 28 10/22/24 00:00 10/22/24 00:00 10/22/24 00:18 Temperature 98.6 F Pulse Rate 88 81 88 Respiratory Rate 24 H 24 H Blood Pressure 141/80 H Pulse Oximetry 92 92 Oxygen Delivery BiPAP Oxygen Flow Rate Fraction of Inspired Oxygen 28 10/22/24 01:07 10/22/24 02:00 10/22/24 02:50 Temperature Pulse Rate 82 66 89 Respiratory Rate 22 H 20 Blood Pressure Pulse Oximetry 96 Oxygen Delivery BiPAP Oxygen Flow Rate Fraction of Inspired Oxygen 10/22/24 03:00 10/22/24 03:41 10/22/24 04:00 Temperature 98.4 F Pulse Rate 89 88 75 Respiratory Rate 20 25 H Blood Pressure 160/61 H Pulse Oximetry 93 Oxygen Delivery Oxygen Flow Rate Fraction of Inspired Oxygen 10/22/24 04:08 10/22/24 05:38 10/22/24 05:57 Temperature Pulse Rate 88 73 83 Respiratory Rate 25 H 22 H Blood Pressure Pulse Oximetry 93 92 Oxygen Delivery BiPAP BiPAP Oxygen Flow Rate Fraction of Inspired Oxygen 28 10/22/24 08:00 10/22/24 08:10 10/22/24 08:15 Temperature 97.8 F Pulse Rate 83 64 64 Respiratory Rate 27 H 18 Blood Pressure 175/68 H Pulse Oximetry 95 92 Oxygen Delivery BiPAP Oxygen Flow Rate Fraction of Inspired Oxygen 10/22/24 08:17 10/22/24 08:17 Temperature Pulse Rate 96 96 Respiratory Rate 23 H Blood Pressure Pulse Oximetry 92 92 Oxygen Delivery BiPAP BiPAP Oxygen Flow Rate Fraction of Inspired Oxygen Intake/Output Intake/Output: Intake & Output 10/19/24 10/20/24 10/21/24 10/22/24 23:59 23:59 23:59 23:59 Intake Total 1540 1300 240 Output Total 250 750 260 Balance 1290 550 -20 Meds/Results Medications: Active Medications Generic Name Dose Route Start Last Admin Trade Name Freq PRN Reason Stop Dose Admin Acetaminophen 500 mg 10/20/24 13:51 10/21/24 20:38 Acetaminophen 500 Mg Tablet PO 500 mg QHS PRN Administration Sleep Albuterol/Ipratropium 3 ml 10/20/24 14:00 10/22/24 08:09 Ipratropium 0.5 Mg/Albuterol Sulfate 2.5 Mg Ampul.Neb 3 Ml INHALATION 3 ml Q6HRT KERNE Administration Ascorbic Acid 500 mg 10/21/24 09:00 10/22/24 09:22 Ascorbic Acid 500 Mg Tablet PO 500 mg DAILY KEREN Administration Benzonatate 100 mg 10/20/24 13:38 Benzonatate 100 Mg Capsule PO TID PRN Cough Clopidogrel Bisulfate 75 mg 10/21/24 09:00 10/22/24 09:24 Clopidogrel Bisulfate 75 Mg Tablet PO 75 mg DAILY KEREN Administration Diphenhydramine HCl 25 mg 10/20/24 13:40 10/21/24 20:38 Diphenhydramine Hcl Cap 25 Mg Capsule PO 25 mg QHS PRN Administration Sleep Enoxaparin Sodium 40 mg 10/20/24 13:50 10/22/24 09:29 Enoxaparin 40 Mg/0.4 Ml Syringe SUB-Q 40 mg DAILY KEREN Administration Fluoxetine HCl 20 mg 10/20/24 09:00 10/22/24 09:24 Fluoxetine Hcl 20 Mg Capsule PO 20 mg QAM KEREN Administration Guaifenesin 600 mg 10/20/24 21:00 10/22/24 09:22 Guaifenesin 12 Hr 600 Mg Tabcr PO 600 mg Q12HR KEREN Administration Ceftriaxone Sodium 1 gm/ 50 mls @ 100 mls/hr 10/20/24 11:25 10/22/24 09:29 Sodium Chloride IVPB 100 mls/hr QAM KEREN Administration Azithromycin 500 mg/ Sodium 250 mls @ 250 mls/hr 10/20/24 11:25 10/22/24 09:25 Chloride IVPB 10/24/24 09:59 250 mls/hr QAM KEREN Administration Levothyroxine Sodium 88 mcg 10/21/24 06:30 10/22/24 06:30 Levothyroxine Sodium 88 Mcg Tablet PO 88 mcg DAILY@0630 KEREN Administration Loperamide HCl 2 mg 10/20/24 13:40 Loperamide Hcl 2 Mg Capsule PO HS PRN Diarrhea Prednisone 40 mg 10/22/24 08:00 10/22/24 09:23 Prednisone 20 Mg Tablet PO 40 mg DAILY@0800 KEREN Administration Simvastatin 40 mg 10/20/24 13:40 10/22/24 09:24 Simvastatin 20 Mg Tablet PO 40 mg QAM KEREN Administration Umeclidinium/Vilanterol 1 puff 10/21/24 08:00 10/22/24 08:09 Umeclidinium/Vilanterol 62.5-25 Mcg Ellipta INHALATION Not Given [facility]ILY[facility] Vitamin D 10 mcg 10/21/24 09:00 10/22/24 09:23 Cholecalciferol (Vitamin D3) 10 Mcg (400 Units) Tablet PO 10 mcg DAILY KEREN Administration Radiology Results: ITS Impressions Chest X-Ray 10/20/24 10:15 IMPRESSION: Mild CHF. Superimposed infection cannot be excluded. Findings can represent pneumonia in appropriate clinical settings. Clinical correlation is recommended. Short-term follow-up chest radiograph is recommended after appropriate clinical therapy to document stability and/or resolution. Head CT 10/20/24 11:04 IMPRESSION: 1. No evidence for acute intracranial hemorrhage or calvarial fracture. 2. Multiple chronic findings, as above. Labs Labs: Laboratory Results - last 24 hr 10/22/24 03:19 WBC 11.4 H RBC 3.69 L Hgb 12.1 Hct 38.3 MCV 103.8 H MCH 32.8 MCHC 31.6 L RDW 12.6 Plt Count 170 MPV 10.9 H Immature Gran % (Auto) 0.4 Neut % (Auto) 83.1 H Lymph % (Auto) 11.0 L [place] % (Auto) 5.5 Eos % (Auto) 0.0 Baso % (Auto) 0.0 L Lymph # (Auto) 1.25 [place] # (Auto) 0.6 Eos # (Auto) 0.0 Baso # (Auto) 0.0 Abs Immat Gran (auto) 0.05 H Absolute Neuts (auto) 9.4 H Absolute Nucleated RBC 0.000 Nucleated RBC % 0.0 Sodium 140 Potassium 3.8 Chloride 95 L Carbon Dioxide > 40 H Anion Gap BUN 36 H D Creatinine 0.83 Estim Creat Clear Calc 48 Estimated GFR > 60 Glucose 136 H Calcium 9.4 Magnesium 1.7 Total Bilirubin 0.4 AST 29 ALT 18 Alkaline Phosphatase 75 Total Protein 6.1 L Albumin 3.4 L
[2024-10-22] MEDS: ACETAMINOPHEN 500 MG TABLET PO (20:11)
[2024-10-22] MEDS: diphenhydrAMINE HCl CAP 25 MG CAPSULE PO (20:11)
[2024-10-23] VITALS (24 sets, daily range): BP systolic 134–158; BP diastolic 75–94; PULSE 70–98; RESP 2–26; TEMP 36.7–37.2; O2SAT 83–100
[2024-10-23] MEDS: IPRATROPIUM 0.5 MG/ALBUTEROL SULFATE 2.5 MG AMPUL.NEB 3 ML INHALATION ×3 (01:32→13:26)
[2024-10-23 04:12] LABS: Hematocrit 37.3 % (37.0-47.0); Hemoglobin 11.5 g/dL (12.0-15.0); Immature Granulocyte Percent A 0.8 % (0-0.5); Lymphocytes Absolute Auto 1.65 K/mm3 (0.9-3.2); Mean Corpuscular HGB Conc 30.8 g/dl (32-36); Mean Corpuscular Hemoglobin 32.8 pg (26-34); Mean Corpuscular Volume 106.3 fl (80-100); Nucleated Red Blood Cells Absolute Auto 0.000 K/mm3 (0.0-0.012); Nucleated Red Blood Cells Perc 0.0 % (0.0-0.2); Platelet Count Result 157 k/mm3 (150-375); Red Blood Count 3.51 M/mm3 (4.2-5.4); White Blood Count 9.5 K/mm3 (4.5-10.0)
[2024-10-23 04:38] LABS: Alanine Aminotransferase 33 U/L (6-35); Albumin Level 3.3 g/dL (3.5-5.1); Alkaline Phosphatase 61 U/L (38-126); Anion Gap 2 mmol/L (4-12); Aspartate Amino Transferase 42 U/L (14-36); Bilirubin,Total 0.3 mg/dL (0.2-1.3); Blood Urea Nitrogen 29 mg/dL (7-17); Calcium 8.6 mg/dL (8.4-10.2); Carbon Dioxide 39 mmol/L (22-30); Chloride 99 mmol/L (98-107); Estimated CRCL calculation 55 ml/min; Estimated Glomerular Filt Rate > 60; Glucose 95 mg/dL (65-110); Magnesium 1.8 mg/dL (1.6-2.3); Potassium 3.4 mmol/L (3.4-5.0); Sodium 140 mmol/L (137-145); Total Protein 5.7 g/dL (6.3-8.2)
[2024-10-23] MEDS: LEVOTHYROXINE SODIUM 88 MCG TABLET PO (05:15)
[2024-10-23] MEDS: UMECLIDINIUM/VILANTEROL 62.5-25 MCG ELLIPTA 1 PUFF INHALATION (07:41)
[2024-10-23] MEDS: CHOLECALCIFEROL (VITAMIN D3) 10 MCG (400 UNITS) TABLET PO (08:13)
[2024-10-23] MEDS: CLOPIDOGREL BISULFATE 75 MG TABLET PO (08:13)
[2024-10-23] MEDS: SIMVASTATIN 20 MG TABLET 40 MG PO (08:13)
[2024-10-23] MEDS: ASCORBIC ACID 500 MG TABLET PO (08:13)
[2024-10-23] MEDS: ENOXAPARIN 40 MG/0.4 ML SYRINGE SUB-Q (08:13)
[2024-10-23] MEDS: guaiFENesin 12 HR 600 MG TABCR PO (08:13)
[2024-10-23] MEDS: AZITHROMYCIN IV 500 MG in SODIUM CHLORIDE 0.9% IV 250 ML IVPB (08:15)
[2024-10-23] MEDS: cefTRIAXone 1 GM in SODIUM CHLORIDE 0.9% IV 50 ML 100 ML IVPB (08:15)
[2024-10-23 11:06] LABS: Non-Invasive Expiratory Pressure 8 CMH2O; Non-Invasive Inspiratory Pressure 14 CMH2O; Non-Invasive Vent Rate 15 /MIN
--- NOTE | 2024-10-23 12:34 | PM.DS ---
DS: Admitting Diagnosis Discharge Date 10/23/2024 Admitting Diagnosis Shortness of breath DS: Discharge Diagnosis Discharge Diagnosis (1) Acute hypercapnic respiratory failure: Code(s): J96.02 - Acute respiratory failure with hypercapnia Status: Acute (2) Pneumonia: Qualifiers: Pneumonia type: due to unspecified organism Laterality: unspecified laterality Lung location: unspecified part of lung Qualified Code(s): J18.9 - Pneumonia, unspecified organism Code(s): J18.9 - Pneumonia, unspecified organism Status: Acute (3) COPD (chronic obstructive pulmonary disease): Qualifiers: COPD type: COPD with acute exacerbation Qualified Code(s): J44.1 - Chronic obstructive pulmonary disease with (acute) exacerbation Code(s): J44.9 - Chronic obstructive pulmonary disease, unspecified Status: Acute (4) Grade I diastolic dysfunction: Code(s): I51.89 - Other ill-defined heart diseases Status: Chronic (5) Lung cancer: Qualifiers: Laterality: unspecified laterality Lung location: unspecified part of lung Qualified Code(s): C34.90 - Malignant neoplasm of unspecified part of unspecified bronchus or lung Code(s): C34.90 - Malignant neoplasm of unspecified part of unspecified bronchus or lung Status: Chronic (6) Hypertension: Qualifiers: Hypertension type: primary hypertension Qualified Code(s): I10 - Essential (primary) hypertension Code(s): I10 - Essential (primary) hypertension Status: Resolved (7) Hypothyroidism: Qualifiers: Hypothyroidism type: acquired Qualified Code(s): E03.9 - Hypothyroidism, unspecified Code(s): E03.9 - Hypothyroidism, unspecified Status: Chronic DS: Summary Hospital Course Hospital Course: # Acute hypercapnic respiratory failure: - initial ABG significant for a CO2 of 84.9. Reviewed previous ABGs, patient's CO2 previously 55-60.5. Placed on BiPAP in the ED on 10/20. Repeat ABG with improvement. Continue BiPAP in interim. Tolerating well. She did not use her CPAP at night for past few days. She Will continue CPAP at night and counseled on that - CXR: Mild CHF. Superimposed infection cannot be excluded. Findings can represent pneumonia in appropriate clinical settings. Clinical correlation is recommended. Short-term follow-up chest radiograph is recommended after appropriate clinical therapy to document stability and/or resolution. - reviewed previous echo from 08/30/2024, showed normal systolic function and grade 1 diastolic dysfunction with mild valvular disease. Mild CHF noted on imaging, appears mostly euvolemic on clinical exam, did have some mild peripheral edema. IV Lasix received - monitor neurological status, confusion noted by family however not appreciated upon assessment. Likely secondary to CO2 narcosis, correcting via BiPAP. Advised to get her CPAP here and will use that tonight. Repeat ABG on CPAP with improvement CHF improving chest x-ray # Pneumonia: - did not meet SIRS criteria, RR only. Lactic 1.7. Blood cultures were obtained in the ED on 10/20, follow - CXR concerning for superimposed infection - started on CAP tx: Ceftriaxone and azithromycin on 10/20 -nasal MRSA PCR negative and sputum culture pending - Viral PCR negative on 10/20 - supportive care: Mucinex keren, Tessalon Perles p.r.n., DuoNebs keren, Tylenol p.r.n. - currently requiring BiPAP due to CO2 levels, no hypoxia noted on her baseline O2 requirement Continue IV antibiotics as ordered be switched to oral antibiotics at discharge # COPD (chronic obstructive pulmonary disease): - acute exacerbation of COPD - started on scheduled DuoNebs, broad-spectrum ABX, and steroids - continue home medications Started on oral prednisone which will be continued # Grade I diastolic dysfunction: Delete - BNP 267, WNL for age - most recent echo (08/30/24): Normal systolic function, estimated EF 60 65%, grade 1 diastolic dysfunction, mild valvular disease noted, mild pulmonic regurgitation. See report for full details. - reviewed home medications, not on a daily diuretic. Patient largely Euvolemic on exam, did have some a mild peripheral edema that was nonpitting and symmetric. She had a dose of Lasix during the hospital stay. - monitor I&Os and daily weights - trend renal function # history of Lung cancer: - history of non-small cell lung cancer of the left upper lobe s/p definitive SBRT. Later developed a 2nd non-small cell lung cancer of the left upper lobe separate from her initial tumor a received empiric SBRT. - reviewed most recent follow-up on 06/29/2024 with her oncologist, Elver PIERRE. Patient remains relatively stable from a respiratory standpoint with no clinical or radiographic evidence of disease progression. # Hypertension: - no longer on antihypertensive medications - monitor # Hypothyroidism: - review previous lab work, TSH 1.71 on 10/13/2024 - continue Synthroid # DVT Prophylaxis: Lovenox SQ # Code Status: Full code Time Spent with Patient Time attestation: Total time spent providing and/or coordinating discharge services: 40 minutes Exam Narrative: GENERAL: Well-appearing, well-nourished, and in no acute distress. HEAD: Normocephalic, atraumatic. EYES: PERRLA and EOMI. ENT: Nares clear, no rhinorrhea or epistaxis. Mucous membranes moist. NECK: Supple. CHEST: No wheezes, No respiratory distress. HEART: Regular rate and rhythm. No murmur heard. Normal peripheral pulses. ABDOMEN: Soft, nontender, nondistended, normal active bowel sounds. EXTREMITIES: Normal range of motion. No edema. SKIN: Warm, dry, no rash. NEURO: No focal deficits. Alert and oriented x3. PSYCH: Normal mood and affect. DS: Data Data Completed and Pending Labs on day of discharge: Labs from last 24 hours 10/23/24 10/20/24 03:57 17:08 WBC 9.5 RBC 3.51 L Hgb 11.5 L Hct 37.3 MCV 106.3 H MCH 32.8 MCHC 30.8 L RDW 12.8 Plt Count 157 MPV 10.3 Immature Gran % (Auto) 0.8 H Neut % (Auto) 73.7 H Lymph % (Auto) 17.3 L [place] % (Auto) 7.7 Eos % (Auto) 0.3 Baso % (Auto) 0.2 Lymph # (Auto) 1.65 [place] # (Auto) 0.7 H Eos # (Auto) 0.0 Baso # (Auto) 0.0 Abs Immat Gran (auto) 0.08 H Absolute Neuts (auto) 7.0 H Absolute Nucleated RBC 0.000 Nucleated RBC % 0.0 Vent Rate 15 Expiratory Pressure 8 Inspiratory Pressure 14 Sodium 140 Potassium 3.4 Chloride 99 Carbon Dioxide 39 H Anion Gap 2 L BUN 29 H Creatinine 0.74 Estim Creat Clear Calc 55 Estimated GFR > 60 Glucose 95 Calcium 8.6 Magnesium 1.8 Total Bilirubin 0.3 AST 42 H ALT 33 Alkaline Phosphatase 61 Total Protein 5.7 L Albumin 3.3 L Preliminary micro results at discharge 10/22/24 09:34 Sputum Culture - Preliminary Sputum 10/20/24 12:56 Blood Culture - Preliminary Blood 10/20/24 12:08 Blood Culture - Preliminary Blood Imaging Radiologist's impression: ITS Impressions Chest X-Ray 10/20/24 10:15 IMPRESSION: Mild CHF. Superimposed infection cannot be excluded. Findings can represent pneumonia in appropriate clinical settings. Clinical correlation is recommended. Short-term follow-up chest radiograph is recommended after appropriate clinical therapy to document stability and/or resolution. Head CT 10/20/24 11:04 IMPRESSION: 1. No evidence for acute intracranial hemorrhage or calvarial fracture. 2. Multiple chronic findings, as above. Chest X-Ray 10/23/24 09:27 IMPRESSION: 1. Mild interstitial opacities in the bilateral lower lung zones which could represent bronchitis, mild pulmonary edema or reactive airway disease/asthma. Discharge Plan Discharge Attending physician on discharge: Alpesh Babin Discharging Clinician: Alpesh Babin Anticipated Discharge Date/Time: 10/23/24 12:37 Patient Disposition: Home Activity: as tolerated Diet: heart healthy Discharge Instructions: Continue oxygen 3 L via nasal cannula as previously ordered Continue CPAP at night and during daytime as needed during naps Patient Instructions: Antibiotic Form Patient Language: Russian Stand Alone Forms: General Discharge Information Follow-up/Referrals: Salina Ham MD [Physician, Pulmonology] - 2 Weeks Leslie Weinberg NP [Primary Care Provider, Internal Medicine] - 1 Week Discharge Medications: New prednisone 20 mg Tablet 40 mg PO DAILY@0800 Qty: 6 0RF azithromycin 500 mg tablet 500 mg PO ONCE Qty: 1 0RF Rx Instructions: On 10/24/2024 guaifenesin [Mucus Relief ER] 600 mg Tablet Extended Release 12hr 600 mg PO Q12HR Qty: 30 0RF cefdinir 300 mg capsule 300 mg PO Q12H Qty: 6 0RF Continued ascorbate calcium (vitamin C) 500 mg tablet 500 mg PO DAILY cholecalciferol (vitamin D3) 400 unit capsule 400 unit PO DAILY diphenhydramine-acetaminophen [Tylenol PM Extra Strength] 25-500 mg tablet 1 tablet PO QHS PRN (Reason: Sleep) loperamide [Imodium A-D] 2 mg capsule 2 mg PO HS albuterol sulfate 90 mcg/actuation HFA aerosol inhaler 2 puff inhalation Q4H PRN (Reason: Shortness Of Breath Or Wheezing) Rx Instructions: INHALE 2 PUFFS BY MOUTH EVERY 4 TO 6 HOURS NEEDED FOR SHORTNESS OF BREATH OR WHEEZING Anoro Ellipta 62.5-25 mcg/actuation blister with device 1 inh INHALATION DAILY Qty: 60 5RF simvastatin 40 mg tablet See Rx Instructions .ROUTE .COMPLEX Qty: 90 3RF Dose Instruction: TAKE 1 TABLET DAILY Rx Instructions: TAKE 1 TABLET DAILY levothyroxine 88 mcg tablet See Rx Instructions .ROUTE .COMPLEX Qty: 90 3RF Dose Instruction: TAKE 1 TABLET DAILY Rx Instructions: TAKE 1 TABLET DAILY clopidogrel 75 mg tablet 75 mg PO DAILY Qty: 90 1RF fluoxetine 20 mg capsule See Rx Instructions .ROUTE .COMPLEX Qty: 90 1RF Dose Instruction: TAKE 1 CAPSULE DAILY Rx Instructions: TAKE 1 CAPSULE DAILY Date of admission: 10/21/24 08:27 Primary Care Provider: Leslie Weinberg Admitting Provider: Shana Pinto Attending physician on admission: Shana Pinto Condition: Stable
--- NOTE | 2024-10-23 14:39 | HOMEO2EVAL ---
Evaluation was performed at [facility] Home Oxygen Evaluation RC: Home Oxygen (O2) Evaluation Start: 10/23/24 12:37 Freq: ONCE Status: Active Protocol: RPE Activity Type Activity Date Activity User E-sign Co-sign Detail Recorded Client Recorded Date Recorded By Document 10/23/24 14:08 GENARO [email or web address] 10/23/24 14:38 GENARO Document 10/23/24 14:10 [email or web address] [email or web address] 10/23/24 14:38 GENARO Document 10/23/24 14:12 [email or web address] [email or web address] 10/23/24 14:38 GENARO Document 10/23/24 14:15 [email or web address] [email or web address] 10/23/24 14:38 GENARO Document 10/23/24 14:16 [email or web address] [email or web address] 10/23/24 14:38 GENARO Document 10/23/24 14:20 [email or web address] [email or web address] 10/23/24 14:38 GENARO 10/23/24 10/23/24 10/23/24 14:08 14:10 14:12 Home O2 Evaluation [Oxygen] -Test Phase Exercise Exercise Exercise -Oxygen Delivery Nasal Cannula Nasal Cannula Nasal Cannula -Oxygen Flow Rate (L/min) 1 3 4 [Pulse Oximetry] -Pulse Oximetry (90-100 %) 83 L 86 L 90 [Comments] -Home Oxygen Evaluation Comments 1 liter at rest and 4 l with activity [Charges] -Evaluation Charges 10/23/24 10/23/24 10/23/24 14:15 14:16 14:20 Home O2 Evaluation [Oxygen] -Test Phase Resting Resting Resting -Oxygen Delivery Room Air Nasal Cannula Nasal Cannula -Oxygen Flow Rate (L/min) 1 1 [Pulse Oximetry] -Pulse Oximetry (90-100 %) 87 L 90 92 [Comments] -Home Oxygen Evaluation Comments [Charges] -Evaluation Charges O2 Evaluation by Pulmonary
--- NOTE | 2024-10-23 14:39 | PCRCNOTE ---
Home O2 eval done. Pt needs 1 l rest and 4 liters with activity. 3l bleed-in with NIV. Pt DME for O2 and EDITH is [employer]. Pt has all required O2 equipment. will update [employer] with the increase from 3 liters with activity to 4 liters.
--- NOTE | 2024-10-23 16:04 | PC.NURSE ---
Patient dressed, IV removed, discharge instructions reviewed, waiting for ride in room. RN returned to room, patient left without notifying staff. Multiple attempts to contact patient and family unsuccessful.
== END 2024-10-23 16:00 | disposition home or self-care (01) | DRG 193 ==
LOC: ANHED 11:27 → ANHIMU 12:00
PROVIDERS: Student in an Organized Health Care Education/Training Program; Admitting Provider Internal Medicine; Emergency Provider Emergency Medicine; PCP Nurse Practitioner; Visit Provider Internal Medicine
DX: J18.9 Pneumonia, unspecified organism (principal); J96.01 Acute respiratory failure with hypoxia; J44.1 Chronic obstructive pulmonary disease with (acute) exacerbation; I12.9 Hypertensive chronic kidney disease with stage 1 through stage 4 chronic kidney disease, or unspecified chronic kidney disease; I51.89 Other ill-defined heart diseases; N18.9 Chronic kidney disease, unspecified; Z20.822 Contact with and (suspected) exposure to COVID-19; F41.8 Other specified anxiety disorders; E78.5 Hyperlipidemia, unspecified; M85.80 Other specified disorders of bone density and structure, unspecified site; E03.9 Hypothyroidism, unspecified; Z87.891 Personal history of nicotine dependence; Z86.73 Personal history of transient ischemic attack (TIA), and cerebral infarction without residual deficits; Z99.81 Dependence on supplemental oxygen; Z85.118 Personal history of other malignant neoplasm of bronchus and lung
CPT/HCPCS: 36415; 36600; 70450; 71045; 80053; 81001; 82805; 82948; 83605; 83690; 83735; 83880; 84145; 84484; 85018; 85025; 85610; 85730; 87040; 87070; 87086; 87205; 87637; 87641; 93005; 94002; 94003; 94618; 94640; 96361; 96374; 97161; 97165; 99285; A9270; G0378; J0456; J0696; J1650; J1938; J2919; J7030; J7050; J7512